=== PATIENT | female | born 1945 | race Caucasian/White ===

== ENCOUNTER → 2016-10-08 | Outpatient (CLI) | payer MEDICARE, BC ==
[2016-10-08 12:08] LABS: ALT 46 U/L (9-52); AST 32 U/L (14-36); Alkaline Phosphatase 97 U/L (38-126); Anion Gap 9 mmol/L; Blood Urea Nitrogen 24 mg/dL (7-17); Calcium 10.1 mg/dL (8.4-10.2); Carbon Dioxide 29 mmol/L (22-30); Chloride 103 mmol/L (98-107); Cholesterol 212 mg/dL (<200); Glucose 131 mg/dL (74-99); HDL Cholesterol 60 mg/dL (40-60); Non-African American GFR(MDRD) >60 (>60 ml/min/1.73 sqM); Potassium 4.9 mmol/L (3.5-5.1); Sodium 141 mmol/L (137-145); Total Bilirubin 0.5 mg/dL (0.2-1.3); Total Protein 6.7 g/dL (6.3-8.2); Triglycerides 148 mg/dL (<150)
== END | disposition home or self-care (01) ==
LOC: LABWHC1 10:55
PROVIDERS: ATTEND Internal Medicine Endocrinology, Diabetes & Metabolism
DX: E11.65 Type 2 diabetes mellitus with hyperglycemia (principal); E03.8 Other specified hypothyroidism
CPT/HCPCS: 36415; 80053; 80061; 82043; 84443

== ENCOUNTER → 2017-01-06 | Outpatient (CLI) | payer MEDICARE, BC | END | disposition home or self-care (01) | LOC: LABWHC1 09:01 | PROVIDERS: ATTEND Internal Medicine Endocrinology, Diabetes & Metabolism | DX: E78.5 Hyperlipidemia, unspecified (principal); E03.8 Other specified hypothyroidism | CPT/HCPCS: 36415; 80061; 84443 ==

== ENCOUNTER → 2017-01-25 | Outpatient (CLI) | payer MEDICARE, BC ==
[2017-01-25 11:21] LABS: Blood Urea Nitrogen 19 mg/dL (7-17); Non-African American GFR(MDRD) >60 (>60 ml/min/1.73 sqM)
--- NOTE | 2017-01-25 12:18 | CT ---
EXAMINATION TYPE: CT abdomen pelvis w con DATE OF EXAM: 01/25/2017 and 03/30/2013. HISTORY: Ovarian cancer, ALL. Surgical history of hysterectomy and peritoneal takedown. Current chemo therapy treatment. CT DLP: 1924.0mGycm Automated Exposure Control for Dose Reduction was Utilized. CONTRAST: CT scan of the abdomen and pelvis is performed with IV Contrast, patient injected with 100 ml mL of O mnipaque 300. COMPARISON: 03/02/2016 FINDINGS: LUNG BASES: No significant abnormality is appreciated. LIVER/GB: No significant abnormality is appreciated. There is no evidence of subserosal implants or l iver parenchymal involvement. A solitary hypoattenuated hepatic lesion within segment 2 of the liver measures 2.3 x 2.4 cm and has central attenuation of fluid. This is stable dating back to 03/30/2013 most compatible with a benign cyst despite irregular wall. The previously questioned gallbladder poly p is not visualized on today's examination. Phrygian cap is incidentally noted. PANCREAS: No significant abnormality is seen. SPLEEN: No significant abnormality is seen. ADRENALS: No significant abnormality is seen. KIDNEYS: No significant abnormality is seen. Incidental note is made of a retroaortic left renal vein . BOWEL: A copious amount of retained fecal material is seen throughout the colon with no evidence of b owel wall thickening or pericolonic fat stranding changes. No bowel dilation. UTERUS/ADNEXA: Postsurgical changes are seen of a hysterectomy and bilateral oophorectomy. LYMPH NODES: No greater than 1cm abdominal or pelvic lymph nodes are appreciated. OSSEOUS STRUCTURES: No significant abnormality is seen. OTHER: There is diastases recti and a small fat filled umbilical hernia. IMPRESSION: 1. No evidence of recurrence, adenopathy or metastatic disease. 2. Hepatic lesion although irregularly marginated is stable dating back to 03/30/2013 and fluid atten uated most compatible with a benign cyst. No evidence of liver parenchymal involvement or subserosal implants.
== END | disposition home or self-care (01) ==
LOC: RADCTMAIN 10:19
PROVIDERS: ATTEND Internal Medicine Hematology & Oncology
DX: C56.9 Malignant neoplasm of unspecified ovary (principal); K76.89 Other specified diseases of liver
CPT/HCPCS: 82565; 84520; 74177; Q9967

== ENCOUNTER → 2017-03-22 | Outpatient (CLI) | payer MEDICARE, BC ==
[2017-03-22 10:18] LABS: ALT 45 U/L (9-52); AST 27 U/L (14-36); Alkaline Phosphatase 107 U/L (38-126); Anion Gap 7 mmol/L; Blood Urea Nitrogen 17 mg/dL (7-17); Calcium 9.9 mg/dL (8.4-10.2); Carbon Dioxide 29 mmol/L (22-30); Chloride 101 mmol/L (98-107); Cholesterol 189 mg/dL (<200); Glucose 137 mg/dL (74-99); HDL Cholesterol 50 mg/dL (40-60); Non-African American GFR(MDRD) >60 (>60 ml/min/1.73 sqM); Potassium 4.9 mmol/L (3.5-5.1); Sodium 137 mmol/L (137-145); Total Bilirubin 0.3 mg/dL (0.2-1.3); Total Protein 6.4 g/dL (6.3-8.2)
[2017-03-22 11:48] LABS: Hemoglobin A1C 6.2 % (4.2-6.1)
[2017-03-22 16:32] LABS: Urine Creatinine 74.2 mg/dL
== END | disposition home or self-care (01) ==
LOC: LABWHC1 09:14
PROVIDERS: ATTEND Internal Medicine Endocrinology, Diabetes & Metabolism
DX: E11.65 Type 2 diabetes mellitus with hyperglycemia (principal)
CPT/HCPCS: 36415; 80053; 80061; 82043; 82570; 83036

== ENCOUNTER → 2017-10-04 | Outpatient (CLI) | payer MEDICARE, BC ==
[2017-10-04 09:08] LABS: Cholesterol 185 mg/dL (<200); HDL Cholesterol 47 mg/dL (40-60); LDL Cholesterol,Calculated 109 mg/dL (0-99); Triglycerides 146 mg/dL (<150)
[2017-10-04 18:41] LABS: Hemoglobin A1C 6.1 % (4.0-6.0)
== END | disposition home or self-care (01) ==
LOC: LABWHC1 07:52
PROVIDERS: ATTEND Internal Medicine Endocrinology, Diabetes & Metabolism
DX: E11.65 Type 2 diabetes mellitus with hyperglycemia (principal)
CPT/HCPCS: 36415; 80061; 83036

== ENCOUNTER → 2017-11-08 | Outpatient (CLI) | payer MEDICARE, BC ==
--- NOTE | 2017-11-10 10:34 | MM ---
Reason for exam: screening (asymptomatic). Last mammogram was performed 1 year and 6 months ago. History: Patient is postmenopausal, has history of ovarian cancer at age 65, and has history of other cancer at age 65. Family history of breast cancer in maternal grandmother, breast cancer in sister at age 59, and premenopausal breast cancer in aunt at age 44. Excisional biopsy of the right breast, 1970. Took estrogen for 10 years 2 months beginning at age 51. Physical Findings: A clinical breast exam by your physician is recommended on an annual basis and results should be correlated with mammographic findings. MG 3D Screening Mammo W/Cad Bilateral CC and MLO view(s) were taken. Prior study comparison: May 12, 2016, bilateral MG 3d screening mammo w/cad. March 28, 2015, bilateral MG screening mammo w CAD. There are scattered fibroglandular densities. No significant changes when compared with prior studies. ASSESSMENT: Benign, BI-RAD 2 RECOMMENDATION: Routine screening mammogram of both breasts in 1 year.
== END | disposition home or self-care (01) ==
LOC: RADMAMWWP 11:19
PROVIDERS: ATTEND Family Medicine
DX: Z12.31 Encounter for screening mammogram for malignant neoplasm of breast (principal)
CPT/HCPCS: 77063; 77067

== ENCOUNTER 2018-01-02 10:43 | Emergency (ER) | payer MEDICARE, BC ==
[2018-01-02 11:01] VITALS: RESP 18; TEMP 98.6
[2018-01-02] MEDS ORDERED: PANTOPRAZOLE 40 MG/10 ML VIAL IVP STA (11:15)
[2018-01-02] MEDS ORDERED: ONDANSETRON 4 MG/2 ML VIAL IVP STA (11:15)
[2018-01-02] MEDS ORDERED: SODIUM CHLORIDE 0.9% 1,000 ML IV STA (11:15)
--- NOTE | 2018-01-02 11:17 | ED ---
General Adult HPI - General Chief complaint: Nausea/Vomiting/Diarrhea Stated complaint: Diarrhea Time Seen by Provider: 01/02/18 11:02 Source: patient, RN notes reviewed Mode of arrival: wheelchair Limitations: no limitations - History of Present Illness Initial comments: Patient 72-year-old female presented to the emergency room today with a chief complaint of diarrhea and abdominal pain off-and-on over the last 4 days. Patient does admit that 2 days ago she noticed some blood in the stool. Patient states that has had some cramping type sharp pains at times in the upper abdomen. States 5/10 at this time. Denies any radiation. States that have colonoscopy back in 2012. Patient states she did have diarrhea this morning but does not see any blood. Patient denies any other complaints or symptoms currently. Patient denies any recent fever, chills, shortness of breath , chest pain, back pain, numbness or tingling, dysuria or hematuria, constipation, headaches or visual changes, or any other complaints. - Related Data Home Medications Medication Instructions Recorded Confirmed ALPRAZolam [Xanax] 0.5 mg PO TID PRN 10/19/13 09/29/14 Amitriptyline HCl [Elavil] 100 mg PO HS 10/19/13 09/29/14 Celecoxib [CeleBREX] 200 mg PO DAILY 10/19/13 09/29/14 Fluconazole 200 mg PO DAILY 10/19/13 09/29/14 Levothyroxine Sodium [Synthroid] 137 mcg PO DAILY 10/19/13 09/29/14 Nitroglycerin Sl Tabs [Nitrostat] 0.4 mg SUBLINGUAL Q5M PRN 10/19/13 09/29/14 Omeprazole [PriLOSEC] 20 mg PO AC-BID 10/19/13 09/29/14 amLODIPine [Norvasc] 5 mg PO DAILY 10/19/13 09/29/14 Ondansetron [Zofran] 8 mg PO Q4HR PRN 02/02/14 09/29/14 Azithromycin [Zithromax] 250 mg PO DAILY 09/28/14 09/29/14 Enoxaparin [Lovenox] 40 mg SQ DAILY 09/28/14 09/29/14 Lisinopril-Hctz 20-25 mg 1 each PO DAILY 09/28/14 09/29/14 [Zestoretic 20-25] Sulfamethox-Tmp 800-160Mg [Bactrim 2 tab PO BID 09/28/14 09/29/14 DS 800-160 mg] hydrALAZINE HCL [Apresoline] 25 mg PO TID 09/28/14 09/29/14 sitaGLIPtin PHOS/metFORMIN HCL 1 each PO BID 09/28/14 09/29/14 [Janumet 50-1,000 mg Tablet] traMADol HCl [Ultram] 50 mg PO TID 09/28/14 09/29/14 valACYclovir HCL [Valtrex] 1,000 mg PO Q12HR 09/29/14 09/29/14 Allergies Allergy/AdvReac Type Severity Reaction Status Date / Time adhesive Allergy Unknown Verified 01/02/18 11:01 meclizine HCl [From Antivert] Allergy Unknown Verified 01/02/18 11:01 cefdinir [Cefdinir] AdvReac Nausea Verified 01/02/18 11:01 Review of Systems ROS Statement: Those systems with pertinent positive or pertinent negative responses have been documented in the HPI. ROS Other: All systems not noted in ROS Statement are negative. Past Medical History Past Medical History: Diabetes Mellitus Additional Past Medical History / Comment(s): Ovarian Cancer, Skin cancer, varicose veins, SOB, hemorrhiods, ovarian disorder, UTI, arthritis, chronic back pain, all luekem. Chronic anemia with frequent blood transfusions. Thrombocytopenia with plt transfusions. History of Any Multi-Drug Resistant Organisms: MRSA, VRE Date of last positivie culture/infection: 12/01/2013-MRSA; 10/20/2013-VRE MDRO Source:: MRSA-Abd Wound: VRE-Urine Past Surgical History: Appendectomy, Hysterectomy Additional Past Surgical History / Comment(s): colonoscopy, abdominal surgery, oophrectomy, shoulder surgery, knee replacement, foot surgery Past Anesthesia/Blood Transfusion Reactions: No Reported Reaction Past Psychological History: Depression Smoking Status: Never smoker Past Alcohol Use History: Occasional Past Drug Use History: None Reported - Past Family History Father Family Medical History: No Reported History General Exam Limitations: no limitations Course Vital Signs 01/02/18 01/02/18 01/02/18 10:56 11:16 13:09 Temperature 98.6 F Pulse Rate 109 H 106 H 101 H Respiratory 18 18 18 Rate Blood Pressure 163/88 157/92 O2 Sat by Pulse 94 L 98 96 Oximetry Medical Decision Making - Medical Decision Making Patient reexamined at this time shows no signs of distress. She is resting comfortably. Patient's occult a sample was negative for any bloody urine emergency room. She does admit that she saw some blood in the stool 2 days ago. No blood this morning when she had some loose stool. Patient's labs been reviewed hemoglobin stable. Remaining labs unremarkable. Patient's CT of the abdomen and pelvis reviewed and does show hepatomegaly with fatty liver, stable hepatic lesion. No acute inflammatory changes. Results were discussed with the patient. At this time she is doing well. Vitals are stable be discharged home to follow-up with her family physician over the next 2 days. Advised return if any symptoms increase worsen. - Lab Data Result diagrams: 01/02/18 11:25 01/02/18 11:25 Lab Results 01/02/18 01/02/18 01/02/18 Range/Units 11:25 11:25 11:25 WBC 4.4 (3.8-10.6) k/uL RBC 3.65 L (3.80-5.40) m/uL Hgb 11.9 (11.4-16.0) gm/dL Hct 34.7 (34.0-46.0) % MCV 95.0 (80.0-100.0) fL MCH 32.5 (25.0-35.0) pg MCHC 34.2 (31.0-37.0) g/dL RDW 15.2 (11.5-15.5) % Plt Count 105 L (150-450) k/uL Neutrophils % 69 % Lymphocytes % 23 % Monocytes % 4 % Eosinophils % 1 % Basophils % 0 % Neutrophils # 3.0 (1.3-7.7) k/uL Lymphocytes # 1.0 (1.0-4.8) k/uL Monocytes # 0.2 (0-1.0) k/uL Eosinophils # 0.1 (0-0.7) k/uL Basophils # 0.0 (0-0.2) k/uL PT 9.6 (9.0-12.0) sec INR 1.0 (<1.2) APTT 22.3 (22.0-30.0) sec Sodium 137 (137-145) mmol/L Potassium 4.9 (3.5-5.1) mmol/L Chloride 103 (98-107) mmol/L Carbon Dioxide 25 (22-30) mmol/L Anion Gap 9 mmol/L BUN 32 H (7-17) mg/dL Creatinine 0.80 (0.52-1.04) mg/dL Est GFR (CKD-EPI)AfAm 85 (>60 ml/min/1.73 sqM) Est GFR (CKD-EPI)NonAf 74 (>60 ml/min/1.73 sqM) Glucose 113 H (74-99) mg/dL Calcium 9.8 (8.4-10.2) mg/dL Total Bilirubin 0.3 (0.2-1.3) mg/dL AST 26 (14-36) U/L ALT 37 (9-52) U/L Alkaline Phosphatase 67 (38-126) U/L Total Protein 6.8 (6.3-8.2) g/dL Albumin 4.3 (3.5-5.0) g/dL Urine Color Urine Appearance (Clear) Urine pH (5.0-8.0) Ur Specific [place] (1.001-1.035) Urine Protein (Negative) Urine Glucose (UA) (Negative) Urine Ketones (Negative) Urine Blood (Negative) Urine Nitrite (Negative) Urine Bilirubin (Negative) Urine Urobilinogen (<2.0) mg/dL Ur Leukocyte Esterase (Negative) Urine RBC (0-5) /hpf Urine WBC (0-5) /hpf Ur Squamous Epith Cells (0-4) /hpf Amorphous Sediment (None) /hpf Urine Mucus (None) /hpf Stool Occult Blood (Negative) 01/02/18 01/02/18 Range/Units 11:25 13:12 WBC (3.8-10.6) k/uL RBC (3.80-5.40) m/uL Hgb (11.4-16.0) gm/dL Hct (34.0-46.0) % MCV (80.0-100.0) fL MCH (25.0-35.0) pg MCHC (31.0-37.0) g/dL RDW (11.5-15.5) % Plt Count (150-450) k/uL Neutrophils % % Lymphocytes % % Monocytes % % Eosinophils % % Basophils % % Neutrophils # (1.3-7.7) k/uL Lymphocytes # (1.0-4.8) k/uL Monocytes # (0-1.0) k/uL Eosinophils # (0-0.7) k/uL Basophils # (0-0.2) k/uL PT (9.0-12.0) sec INR (<1.2) APTT (22.0-30.0) sec Sodium (137-145) mmol/L Potassium (3.5-5.1) mmol/L Chloride (98-107) mmol/L Carbon Dioxide (22-30) mmol/L Anion Gap mmol/L BUN (7-17) mg/dL Creatinine (0.52-1.04) mg/dL Est GFR (CKD-EPI)AfAm (>60 ml/min/1.73 sqM) Est GFR (CKD-EPI)NonAf (>60 ml/min/1.73 sqM) Glucose (74-99) mg/dL Calcium (8.4-10.2) mg/dL Total Bilirubin (0.2-1.3) mg/dL AST (14-36) U/L ALT (9-52) U/L Alkaline Phosphatase (38-126) U/L Total Protein (6.3-8.2) g/dL Albumin (3.5-5.0) g/dL Urine Color Light Yellow Urine Appearance Clear (Clear) Urine pH 5.0 (5.0-8.0) Ur Specific [place] 1.022 (1.001-1.035) Urine Protein Negative (Negative) Urine Glucose (UA) Negative (Negative) Urine Ketones Negative (Negative) Urine Blood Trace H (Negative) Urine Nitrite Negative (Negative) Urine Bilirubin Negative (Negative) Urine Urobilinogen <2.0 (<2.0) mg/dL Ur Leukocyte Esterase Negative (Negative) Urine RBC 1 (0-5) /hpf Urine WBC <1 (0-5) /hpf Ur Squamous Epith Cells 1 (0-4) /hpf Amorphous Sediment Rare H (None) /hpf Urine Mucus Rare H (None) /hpf Stool Occult Blood Negative (Negative) Disposition Clinical Impression: Acute diarrhea Disposition: HOME SELF-CARE Condition: Good Instructions: Acute Diarrhea (ED) Additional Instructions: Please call family physician over the next 2 days. Please return here to the emergency room if any symptoms increase or worsen or for any other concerns. Is patient prescribed a controlled substance at d/c from ED?: No Referrals: Jersey Murrieta MD [Primary Care Provider] - 1-2 days Time of Disposition: 13:49
[2018-01-02 11:35] LABS: Basophils % (A) 0 %; Eosinophils # (A) 0.1 k/uL (0-0.7); Eosinophils % (A) 1 %; HCT 34.7 % (34.0-46.0); HGB 11.9 gm/dL (11.4-16.0); Lymphocytes % (A) 23 %; MCH 32.5 pg (25.0-35.0); MCHC 34.2 g/dL (31.0-37.0); Mean Platelet Volume 8.6; Monocytes # (A) 0.2 k/uL (0-1.0); Monocytes % (A) 4 %; Neutrophils % (A) 69 %; Platelet Count 105 k/uL (150-450); RBC 3.65 m/uL (3.80-5.40); RDW 15.2 % (11.5-15.5); WBC 4.4 k/uL (3.8-10.6)
[2018-01-02 11:48] LABS: Albumin 4.3 g/dL (3.5-5.0); Calcium 9.8 mg/dL (8.4-10.2); Potassium 4.9 mmol/L (3.5-5.1); Total Bilirubin 0.3 mg/dL (0.2-1.3); Total Protein 6.8 g/dL (6.3-8.2)
[2018-01-02 11:57] LABS: Partial Thromboplastin Time 22.3 sec (22.0-30.0); Prothrombin Time 9.6 sec (9.0-12.0)
--- NOTE | 2018-01-02 13:18 | CT ---
EXAMINATION TYPE: CT abdomen pelvis w con DATE OF EXAM: 01/02/2018 REFERENCE: NONE HISTORY: Pain HISTORY: Diarrhea REFERENCE: Previous study dated 01/25/2017. CT DLP: 2072.00 mGy Automated exposure control for dose reduction was used. TECHNIQUE: Helical acquisition through the abdomen and pelvis was obtained following the oral ingesti on of without Oral Contrast and following intravenous administration of 100 ml mL of Isovue 300. The data was reformatted in axial, coronal and sagittal projections. FINDINGS: Visualized portions of the lungs are clear. There is no pleural or pericardial fluid. The heart is not enlarged. There is a stable hepatic lesion in the left lobe of the liver unchanged from previous. The liver is mildly prominent measuring 19 cm. There is mild fatty infiltration of the liver. The spleen is unrema rkable. The gallbladder is distended. Both adrenal glands are normal. Both kidneys demonstrate function and appear morphologically normal. The right kidney is mildly malro tated. The pancreas is unremarkable. There is no significant retroperitoneal, iliac or inguinal adenopathy. There has been a previous ingu inal lymph node dissection bilaterally. The bladder is unremarkable. There is no significant diverticular change and there is no radiographic evidence of diverticulitis. The appendix is not clearly seen. Small bowel loops are of normal caliber. There is no free fluid and no free air. There is degenerative disc disease, facet arthropathy and hypertrophic spondylosis within the spine. No bony destructive lesion is seen. IMPRESSION: 1. MILD HEPATOMEGALY AND FATTY INFILTRATION OF THE LIVER. 2. DEGENERATIVE CHANGES WITHIN THE SPINE. 3. POSTSURGICAL CHANGE. 4. STABLE HEPATIC LESION IN THE LEFT LOBE OF THE LIVER.
[2018-01-02 13:22] LABS: Amorphous Sediment,Urine Rare /hpf; Appearance,Urine Clear (Clear); Bilirubin,Urine Negative (Negative); Blood,Urine Trace (Negative); Color,Urine Light Yellow; Glucose,Urine (UA) Negative (Negative); Ketones,Urine Negative (Negative); Leukocyte Esterase,Urine Negative (Negative); Mucus,Urine Rare /hpf; Nitrite,Urine Negative (Negative); Protein,Urine Negative (Negative); RBC,Urine 1 /hpf (0-5); Specific Gravity,Urine 1.022 (1.001-1.035); Squamous Epithelial Cell,Urine 1 /hpf (0-4); Urobilinogen,Urine <2.0 mg/dL (<2.0); WBC,Urine <1 /hpf (0-5)
[2018-01-02 14:01] VITALS: BP 140/75; PULSE 98
== END 2018-01-02 14:01 | disposition home or self-care (01) ==
LOC: EC 10:43
DX: R19.7 Diarrhea, unspecified (principal); K76.0 Fatty (change of) liver, not elsewhere classified; K76.89 Other specified diseases of liver; R16.0 Hepatomegaly, not elsewhere classified; R10.10 Upper abdominal pain, unspecified; E11.9 Type 2 diabetes mellitus without complications; M19.90 Unspecified osteoarthritis, unspecified site; D64.9 Anemia, unspecified; D69.6 Thrombocytopenia, unspecified; F32.9 Major depressive disorder, single episode, unspecified; Z79.01 Long term (current) use of anticoagulants; Z79.1 Long term (current) use of non-steroidal anti-inflammatories (NSAID); Z79.84 Long term (current) use of oral hypoglycemic drugs; Z79.891 Long term (current) use of opiate analgesic; Z79.899 Other long term (current) drug therapy; Z88.1 Allergy status to other antibiotic agents; Z88.8 Allergy status to other drugs, medicaments and biological substances; Z91.048 Other nonmedicinal substance allergy status; Z86.14 Personal history of Methicillin resistant Staphylococcus aureus infection; Z85.43 Personal history of malignant neoplasm of ovary; Z90.722 Acquired absence of ovaries, bilateral; Z87.440 Personal history of urinary (tract) infections; Z86.79 Personal history of other diseases of the circulatory system; Z90.49 Acquired absence of other specified parts of digestive tract
CPT/HCPCS: 99284; 96374; 96375; 96361 ×2; 36415; 80053; 85025; 85610; 85730; 82272; 81001; 74177; J2405; C9113; Q9967

== ENCOUNTER → 2018-01-17 | Outpatient (CLI) | payer MEDICARE, BC ==
[2018-01-17 11:18] LABS: Albumin 4.2 g/dL (3.5-5.0); Calcium 10.1 mg/dL (8.4-10.2); Potassium 4.9 mmol/L (3.5-5.1); Total Bilirubin 0.3 mg/dL (0.2-1.3); Total Protein 6.6 g/dL (6.3-8.2)
[2018-01-17 19:42] LABS: Hemoglobin A1C 6.4 % (4.0-6.0)
== END | disposition home or self-care (01) ==
LOC: LABWHC1 10:37
PROVIDERS: ATTEND Internal Medicine Endocrinology, Diabetes & Metabolism
DX: E11.65 Type 2 diabetes mellitus with hyperglycemia (principal)
CPT/HCPCS: 36415; 80053; 80061; 83036; 84443

== ENCOUNTER → 2018-01-22 | Outpatient (CLI) | payer MEDICARE, BC ==
--- NOTE | 2018-01-23 14:44 | MR ---
EXAMINATION TYPE: MR lumbar spine wo/w con DATE OF EXAM: 01/22/2018 COMPARISON: None HISTORY: LBP, lisette leg weakness, hx ovarian ca 2010, leukemia 2013 CONTRAST: 12 mL intravenous Gadavist. TECHNIQUE: Multiplanar, multisequence images of the lumbar spine were acquired on a 3.0 Greta magnet. FINDINGS: Cord terminates at the L1 level. L5-S1: No significant disc bulge or disc herniation. No spinal canal stenosis. No foraminal stenosi s. Facet hypertrophy is present. No significant posterior lateral thecal sac compression is evident. . L4-L5: Broad-based disc bulge has mild anterior thecal sac flattening. Facet hypertrophy is present. Some posterior lateral thecal sac compression on the left is present. Spinal canal stenosis is not pr esent. There is severe left foraminal stenosis due to facet hypertrophy. L3-L4: No significant disc bulge or disc herniation. No spinal canal stenosis. No foraminal stenosi s. Facet hypertrophy is present. Mild ligamentum flavum laxity is present with posterior lateral the patsy sac compression. Some lateral canal narrowing may be present. Scoliosis is through the lower lumb ar spine centered at the L4 level. L2-L3: Minimal retrolisthesis of L2 on L3 may be present. Disc uncovering is present with moderate an terior thecal sac impression. Facet hypertrophy is present with posterior lateral thecal sac impressi on. Canal narrowing without stenosis is present. Lateral canal stenosis could be considered. Foramen are patent. L1-L2: No significant disc bulge or disc herniation. No spinal canal stenosis. No foraminal stenosi s. Neural foramen are patent.. T12-L1: No significant disc bulge or disc herniation. No spinal canal stenosis. No foraminal stenos is. Neural foramen are patent.. No abnormal enhancement. Vertebral bodies have a heterogenous appearance. This could be related to ma rrow conversion. This is diffuse throughout the visualized osseous structures. An infiltrative marrow process is not excluded. IMPRESSION: 1. Severe left foraminal stenosis L4-5 secondary to facet hypertrophy. Correlate with radicular sympt oms. 2. Lateral canal stenosis L3-4, L2-3 due to facet hypertrophy and ligamentum flavum laxity. 3. Mild foraminal narrowing noted above. 4. Grade 1 retrolisthesis of L2 on L3.
--- NOTE | 2018-01-24 04:26 | MR ---
EXAMINATION TYPE: MR pelvis wo/w con DATE OF EXAM: 01/22/2018 COMPARISON: None HISTORY: LBP, lisette leg weakness, hx ovarian ca 2010, leukemia 2013 CONTRAST: Standard multiplanar, multisequence MRI departmental protocol utilizing 12 mL intravenous Gadavist ga dolinium contrast. FINDINGS: There is mild presacral edema. There is some stranding around the rectum. Rectal wall appea rs slightly thickened. I see no pelvic lymphadenopathy. Bladder distends smoothly. There is 3 cm flui d collection adjacent to the greater trochanter of the right femur. There is minimal fluid at the gre ater trochanter left femur. There is no free fluid within the pelvis. Hysterectomy is noted. I see no bony destructive process. Hip joints appear intact. IMPRESSION: There is perirectal edema. There is rectal wall and lower sigmoid wall thickening consistent with col itis. No evidence of a solid pelvic mass. No adenopathy. Fluid at the greater trochanter of the left and right femur consistent with trochanteric bursitis.
== END | disposition home or self-care (01) ==
LOC: RADMRIMAIN 10:35
PROVIDERS: ATTEND Internal Medicine Hematology & Oncology
DX: M99.73 Connective tissue and disc stenosis of intervertebral foramina of lumbar region (principal); M48.061 Spinal stenosis, lumbar region without neurogenic claudication; M43.16 Spondylolisthesis, lumbar region; M47.816 Spondylosis without myelopathy or radiculopathy, lumbar region; M24.28 Disorder of ligament, vertebrae
CPT/HCPCS: 72158; 72197; A9581

== ENCOUNTER → 2018-01-31 | Outpatient (CLI) | payer MEDICARE, BC ==
--- NOTE | 2018-01-31 13:50 | CT ---
EXAMINATION TYPE: CT ChestAbdPelvis w con DATE OF EXAM: 01/31/2018 COMPARISON: 01/02/2018, 03/02/2016 HISTORY: Follow up Ovarian cancer per patient CT DLP: 2662.8 mGycm Automated exposure control for dose reduction was used. CONTRAST: CT scan of the chest, abdomen and pelvis is performed with Oral Contrast and with IV Contrast, patien t injected with 100 mL of Isovue 300. FINDINGS: LUNGS: 3 mm subpleural nodule image 19 posteriorly right upper lobe. No consolidation or pleural effu naila. No pneumothorax.. MEDIASTINUM: There are no greater than 1 cm hilar or mediastinal lymph nodes. No pericardial effusi on is seen. OTHER: No additional significant abnormality is seen. LIVER/GB: There is a stable hepatic lesion in the left lobe of the liver measuring 2.4 x 2.1 cm uncha nged from previous. The liver is mildly prominent measuring 21 cm. There is mild fatty infiltration o f the liver. PANCREAS: No significant abnormality is seen. SPLEEN: No significant abnormality is seen. ADRENALS: No significant abnormality is seen. KIDNEYS: No hydronephrosis or nephrolithiasis. Mild malrotation of the right kidney is stable.. BOWEL: No significant abnormality is seen. LYMPH NODES: There is a soft tissue density in left perirectal region measuring approximately 1.5 cm in short axis. OSSEOUS STRUCTURES: Multilevel degenerative disc disease. Scoliosis noted. Anterolisthesis of L2 on 3 reported by previous MRI not well seen on today's exam. Multilevel severe degenerative disc disease with vacuum disc. Multilevel facet arthropathy.. OTHER: Aorta of normal caliber. Retroaortic left renal vein incidentally noted. IMPRESSION: 1. There is a soft tissue density along the left perirectal region axial image 117 series 3 which is slightly increased in size from the previous exam of 2018 but is not clearly seen on the exam of 2016 . Could not exclude an area of pathologic adenopathy. 2. Stable 2.4 x 2.1 cm hepatic lesion which does not meet the criteria of a simple cyst. 3. Hepatic steatosis with evidence of hepatomegaly measuring 21 cm. 4. Stable 3 mm subpleural nodule posterior segment right upper lobe unchanged from exam of 2016.
== END | disposition home or self-care (01) ==
LOC: RADCTMAIN 10:52
PROVIDERS: ATTEND Internal Medicine Hematology & Oncology
DX: K76.0 Fatty (change of) liver, not elsewhere classified (principal); R16.0 Hepatomegaly, not elsewhere classified; K76.89 Other specified diseases of liver; K62.89 Other specified diseases of anus and rectum; R91.1 Solitary pulmonary nodule; Z85.43 Personal history of malignant neoplasm of ovary; Z88.1 Allergy status to other antibiotic agents; Z88.8 Allergy status to other drugs, medicaments and biological substances
CPT/HCPCS: 82565; 84520; 71260; 74177; 36415; Q9967

== ENCOUNTER 2018-05-09 16:14 | Inpatient (IN) | payer MEDICARE, BC ==
[2018-05-09] MEDS ORDERED: SODIUM CHLORIDE 0.9% 1,000 ML IV STA ×2 (17:14→20:07)
--- NOTE | 2018-05-09 17:30 | ED ---
General Adult HPI - General Chief complaint: Weakness Stated complaint: from [facility], [facility] labs Source: patient Mode of arrival: wheelchair Limitations: no limitations - History of Present Illness Initial comments: Dictation was produced using [employer] dictation software. please excuse any grammatical, word or spelling errors. Chief Complaint: 72-year-old female past medical history of lymphoma, ovarian cancer presents with abnormal outpatient labs and presyncope. History of Present Illness: Patient 17-year-old female with extensive cancer history. Patient is currently undergoing chemotherapy for lymphoma. Patient's last chemotherapy 7 days ago. She had labs performed outpatient by her oncologist showing low platelets. She is told to come to the emergency department. Today patient had 2 episodes of feeling lightheaded causing her to stumble. She denies any syncope. Denies any head trauma. Patient denies any headache. Calls were witnessed by her who accompanies her at bedside. Patient has any infectious symptoms. Denies any constitutional symptoms. The ROS documented in this emergency department record has been reviewed and confirmed by me. Those systems with pertinent positive or negative responses have been documented in the HPI. All other systems are other negative and/or noncontributory. - Related Data Home Medications Medication Instructions Recorded Confirmed Amitriptyline HCl [Elavil] 100 mg PO HS 10/19/13 05/09/18 Celecoxib [CeleBREX] 200 mg PO BID 10/19/13 05/09/18 Levothyroxine Sodium [Synthroid] 137 mcg PO DAILY 10/19/13 05/09/18 Omeprazole [PriLOSEC] 20 mg PO AC-BID 10/19/13 05/09/18 Allopurinol [Zyloprim] 300 mg PO DAILY 05/09/18 05/09/18 Insulin Regular, Human [NovoLIN R] See Protocol SQ AC-TID PRN 05/09/18 05/09/18 Lisinopril [Zestril] 10 mg PO DAILY 05/09/18 05/09/18 Prochlorperazine [Compazine] 10 mg PO TID PRN 05/09/18 05/09/18 glipiZIDE [Glucotrol] 10 mg PO AC-BID 05/09/18 05/09/18 metFORMIN HCL 1,000 mg PO BID 11/19/18 11/19/18 Allergies Allergy/AdvReac Type Severity Reaction Status Date / Time adhesive Allergy Unknown Verified 05/09/18 17:52 meclizine HCl [From Antivert] Allergy Unknown Verified 05/09/18 17:52 cefdinir [Cefdinir] AdvReac Nausea Verified 05/09/18 17:52 Review of Systems ROS Statement: Those systems with pertinent positive or pertinent negative responses have been documented in the HPI. ROS Other: All systems not noted in ROS Statement are negative. Past Medical History Past Medical History: Cancer, Diabetes Mellitus Additional Past Medical History / Comment(s): Ovarian Cancer, Skin cancer, varicose veins, SOB, hemorrhiods, ovarian disorder, UTI, arthritis, chronic back pain, all luekem. Chronic anemia with frequent blood transfusions. Thrombocytopenia with plt transfusions. lymphoma History of Any Multi-Drug Resistant Organisms: MRSA, VRE Date of last positivie culture/infection: 12/01/2013-MRSA; 10/20/2013-VRE MDRO Source:: MRSA-Abd Wound: VRE-Urine Past Surgical History: Appendectomy, Hysterectomy Additional Past Surgical History / Comment(s): colonoscopy, abdominal surgery, oophrectomy, shoulder surgery, knee replacement, foot surgery Past Anesthesia/Blood Transfusion Reactions: No Reported Reaction Past Psychological History: Depression Smoking Status: Never smoker Past Alcohol Use History: Occasional Past Drug Use History: None Reported - Past Family History Father Family Medical History: No Reported History General Exam - General Exam Comments Initial Comments: PHYSICAL EXAM: General Impression: Alert and oriented x3, not in acute distress HEENT: Normocephalic atraumatic, extra-ocular movements intact, pupils equal and reactive to light bilaterally, mucous membranes moist. Cardiovascular: Tachycardic Chest: Lungs clear to auscultation bilaterally, no rhonchi, no wheeze, no rales Abdomen: Bowel sounds present, abdomen soft, non-tender, non-distended, no organomegaly Musculoskeletal: Pulses present and equal in all extremities, no peripheral edema Motor: Power 5/5 bilaterally, no focal deficits noted Neurological: CN II-XII grossly intact, no focal motor or sensory deficits noted Skin: Intact with no visualized rashes Psych: Normal affect and mood Limitations: no limitations Course Vital Signs 05/09/18 05/09/18 05/09/18 16:18 17:45 18:08 Temperature 99.0 F Pulse Rate 134 H Pulse Rate [ 132 H Continuous Conveyor Screen Drier ] Respiratory 20 18 Rate Blood Pressure 102/55 154/62 O2 Sat by Pulse 94 L 99 Oximetry 05/09/18 05/09/18 05/09/18 18:36 19:18 20:02 Temperature 100.5 F H 100.3 F H Pulse Rate 129 H 130 H 126 H Pulse Rate [ Continuous Conveyor Screen Drier ] Respiratory 18 18 18 Rate Blood Pressure 154/62 111/68 97/64 O2 Sat by Pulse 94 L 96 95 Oximetry Medical Decision Making - Medical Decision Making ED course: 62-year-old female with extensive cancer history presents with abnormal outpatient platelet count and episodes of presyncope. End upon arrival shows heart rate of 134. Rest of laboratory evaluation is within acceptable limits.Lavatory evaluation obtained. WBC count of 0.2, hemoglobin 9.5, platelet of 32. Coag panel is unremarkable. Metabolic panel shows sodium 131. Lactic acidosis of 2.4, glucose of 225. Magnesium, calcium, ionized calcium and phosphorus and uric acid are all within acceptable limits. Repeat vital signs were obtained with temperatures of 100.500.3. Patient still persistently tachycardic. She denies any chest pain or shortness of breath. No clinical suspicion of pulmonary embolus at this time. Patient given intravenous fluids. Discussed patient case with primary care physician who requests patient be given IV antibiotics given clinical picture. Patient given vancomycin and cefepime. We will have patient admitted to internal medicine for further care. Oncology to be on consult. - Lab Data Result diagrams: 05/09/18 17:30 05/09/18 17:30 Lab Results 05/09/18 05/09/18 05/09/18 Range/Units 17:30 17:30 17:30 WBC 0.2 L* (3.8-10.6) k/uL RBC 2.90 L (3.80-5.40) m/uL Hgb 9.5 L (11.4-16.0) gm/dL Hct 28.5 L (34.0-46.0) % MCV 98.1 (80.0-100.0) fL MCH 32.6 (25.0-35.0) pg MCHC 33.2 (31.0-37.0) g/dL RDW 15.9 H (11.5-15.5) % Plt Count 32 L (150-450) k/uL Neutrophils # RECHECKER Differential Comment Manual Slide Review Performed Anisocytosis (manual) Present Macrocytosis Slight PT (9.0-12.0) sec INR (<1.2) APTT (22.0-30.0) sec Sodium 131 L (137-145) mmol/L Potassium 4.7 (3.5-5.1) mmol/L Chloride 95 L (98-107) mmol/L Carbon Dioxide 26 (22-30) mmol/L Anion Gap 10 mmol/L BUN 25 H (7-17) mg/dL Creatinine 0.82 (0.52-1.04) mg/dL Est GFR (CKD-EPI)AfAm 83 (>60 ml/min/1.73 sqM) Est GFR (CKD-EPI)NonAf 72 (>60 ml/min/1.73 sqM) Glucose 225 H (74-99) mg/dL Plasma Lactic Acid Minh (0.7-2.0) mmol/L Uric Acid 3.7 (3.7-7.4) mg/dL Calcium 9.6 (8.4-10.2) mg/dL Ionized Calcium Lilian 5.0 (4.5-5.3) mg/dL Phosphorus 2.9 (2.5-4.5) mg/dL Magnesium 1.6 (1.6-2.3) mg/dL Total Bilirubin 0.6 (0.2-1.3) mg/dL AST 11 L (14-36) U/L ALT 27 (9-52) U/L Alkaline Phosphatase 77 (38-126) U/L Total Creatine Kinase <20 L (30-135) U/L CK-MB (CK-2) 0.2 (0.0-2.4) ng/mL CK-MB (CK-2) Rel Index Troponin I <0.012 (0.000-0.034) ng/mL Total Protein 6.2 L (6.3-8.2) g/dL Albumin 3.7 (3.5-5.0) g/dL 05/09/18 05/09/18 Range/Units 17:30 17:30 WBC (3.8-10.6) k/uL RBC (3.80-5.40) m/uL Hgb (11.4-16.0) gm/dL Hct (34.0-46.0) % MCV (80.0-100.0) fL MCH (25.0-35.0) pg MCHC (31.0-37.0) g/dL RDW (11.5-15.5) % Plt Count (150-450) k/uL Neutrophils # Differential Comment Manual Slide Review Anisocytosis (manual) Macrocytosis PT 9.9 (9.0-12.0) sec INR 1.0 (<1.2) APTT 21.8 L (22.0-30.0) sec Sodium (137-145) mmol/L Potassium (3.5-5.1) mmol/L Chloride (98-107) mmol/L Carbon Dioxide (22-30) mmol/L Anion Gap mmol/L BUN (7-17) mg/dL Creatinine (0.52-1.04) mg/dL Est GFR (CKD-EPI)AfAm (>60 ml/min/1.73 sqM) Est GFR (CKD-EPI)NonAf (>60 ml/min/1.73 sqM) Glucose (74-99) mg/dL Plasma Lactic Acid Minh 2.4 H* (0.7-2.0) mmol/L Uric Acid (3.7-7.4) mg/dL Calcium (8.4-10.2) mg/dL Ionized Calcium Lilian (4.5-5.3) mg/dL Phosphorus (2.5-4.5) mg/dL Magnesium (1.6-2.3) mg/dL Total Bilirubin (0.2-1.3) mg/dL AST (14-36) U/L ALT (9-52) U/L Alkaline Phosphatase (38-126) U/L Total Creatine Kinase (30-135) U/L CK-MB (CK-2) (0.0-2.4) ng/mL CK-MB (CK-2) Rel Index Troponin I (0.000-0.034) ng/mL Total Protein (6.3-8.2) g/dL Albumin (3.5-5.0) g/dL Disposition Clinical Impression: Febrile neutropenia Disposition: ADMITTED IP TO THIS [facility] Condition: Fair Referrals: Jersey Murrieta MD [Primary Care Provider] - 1-2 days Decision Time: 20:27
[2018-05-09 17:56] LABS: Albumin 3.7 g/dL (3.5-5.0); Calcium 9.6 mg/dL (8.4-10.2); Magnesium 1.6 mg/dL (1.6-2.3); Phosphorus 2.9 mg/dL (2.5-4.5); Potassium 4.7 mmol/L (3.5-5.1); Total Bilirubin 0.6 mg/dL (0.2-1.3); Total Protein 6.2 g/dL (6.3-8.2); Uric Acid 3.7 mg/dL (3.7-7.4)
[2018-05-09 17:58] LABS: Creatine Kinase <20 U/L (30-135)
[2018-05-09 18:00] LABS: Prothrombin Time 9.9 sec (9.0-12.0)
[2018-05-09 18:05] LABS: HCT 28.5 % (34.0-46.0); HGB 9.5 gm/dL (11.4-16.0); MCH 32.6 pg (25.0-35.0); MCHC 33.2 g/dL (31.0-37.0); MCV 98.1 fL (80.0-100.0); Macrocytosis Slight; Mean Platelet Volume 7.5; RDW 15.9 % (11.5-15.5)
[2018-05-09 18:10] LABS: Creatine Kinase MB 0.2 ng/mL (0.0-2.4); Troponin I <0.012 ng/mL (0.000-0.034)
[2018-05-09 18:11] LABS: WBC 0.2 k/uL (3.8-10.6)
[2018-05-09 18:12] LABS: Partial Thromboplastin Time 21.8 sec (22.0-30.0)
[2018-05-09 18:23] LABS: Platelet Count 32 k/uL (150-450)
[2018-05-09 18:24] LABS: Anisocytosis (M) Present
--- NOTE | 2018-05-09 19:30 | XR ---
EXAMINATION TYPE: XR chest 2V DATE OF EXAM: 05/09/2018 COMPARISON: 09/28/2014 HISTORY: Weakness TECHNIQUE: Frontal and lateral views of the chest are obtained. FINDINGS: Heart and mediastinum are normal. Lungs are clear. Diaphragm is normal. There are chest le ads. Bony thorax is intact. IMPRESSION: Normal chest. There is clearing of the bilateral patchy infiltrates and atelectasis comp ared to old exam.
[2018-05-09] MEDS ORDERED: VANCOMYCIN 1,000 MG in SODIUM CHLORIDE 0.9% 250 ML IVPB STA (20:13)
[2018-05-09] MEDS ORDERED: CEFEPIME 2 GM in SODIUM CHLORIDE 0.9% 50 ML IVPB STA (20:15)
[2018-05-09] MEDS ORDERED: VANCOMYCIN IV PER PHARMACY 1 EACH MISC MISCELLANE PRN (20:17)
[2018-05-09] MEDS ORDERED: NALOXONE 0.4 MG/ML 1 ML VIAL IV PRN (20:24)
[2018-05-09] MEDS ORDERED: VANCOMYCIN 2,000 MG in SODIUM CHLORIDE 0.9% 500 ML 500 ML IVPB ONE (21:00)
[2018-05-09 22:12] LABS: Appearance,Urine Clear (Clear); Bilirubin,Urine Negative (Negative); Blood,Urine Negative (Negative); Color,Urine Light Yellow; Glucose,Urine (UA) 3+ (Negative); Ketones,Urine Negative (Negative); Leukocyte Esterase,Urine Negative (Negative); Nitrite,Urine Negative (Negative); Protein,Urine Negative (Negative); Urobilinogen,Urine <2.0 mg/dL (<2.0)
[2018-05-10] MEDS: metFORMIN 500 MG TAB PO SCH ×3 (00:52→21:23)
[2018-05-10] MEDS ORDERED: MAGNESIUM HYDROXIDE 2,400 MG/10 ML CUP PO PRN (07:24)
[2018-05-10] MEDS ORDERED: PROCHLORPERAZINE 10 MG TAB PO PRN (07:27)
--- NOTE | 2018-05-10 07:27 | P.PN ---
Subjective Progress Note Date: 05/10/18 Principal diagnosis: Febrile neutropenia. This a history of physical 72-year-old white female admitted secondary to generalized weakness but found have significant neutropenia with low-grade fever. She is being treated right now for lymphoma and recently had chemotherapy treatment last week. He has not underlying history of ovarian cancer also. Her breast cancer is also stated. She does receive her oncologic treatment here. She is nonsmoker. She denies any significant illicit substance abuse. She states since his last treatment she's been having difficulty with ambulation and her weakness prompted appropriate evaluation. She does also complain of mild constipation. After evaluation it was felt that she should be evaluated. Dr. Garrett will also be consulted. Objective - Vital Signs Vital signs: Vital Signs Temp 99.7 F H 05/09/18 23:14 Pulse 110 H 05/10/18 03:00 Resp 15 05/10/18 03:00 BP 121/64 05/10/18 03:00 Pulse Ox 98 05/10/18 03:00 Intake & Output 05/09/18 05/10/18 05/10/18 18:59 06:59 18:59 Weight 110.677 kg - Constitutional General appearance: Present: average body habitus - EENT Eyes: Absent: abnormal pupil - Respiratory Respiratory: bilateral: CTA - Cardiovascular Rhythm: regular Heart sounds: normal: S1, S2 Abnormal Heart Sounds: Absent: S3 Gallop - Gastrointestinal General gastrointestinal: Present: soft. Absent: tenderness - Musculoskeletal Musculoskeletal: Present: generalized weakness - Labs CBC & Chem 7: 05/09/18 17:30 05/09/18 17:30 Labs: Abnormal Lab Results - Last 24 Hours (Table) 05/09/18 05/09/18 05/09/18 Range/Units 17:30 17:30 17:30 WBC 0.2 L* (3.8-10.6) k/uL RBC 2.90 L (3.80-5.40) m/uL Hgb 9.5 L (11.4-16.0) gm/dL Hct 28.5 L (34.0-46.0) % RDW 15.9 H (11.5-15.5) % Plt Count 32 L (150-450) k/uL APTT (22.0-30.0) sec Sodium 131 L (137-145) mmol/L Chloride 95 L (98-107) mmol/L BUN 25 H (7-17) mg/dL Glucose 225 H (74-99) mg/dL Plasma Lactic Acid Minh (0.7-2.0) mmol/L AST 11 L (14-36) U/L Total Creatine Kinase <20 L (30-135) U/L Total Protein 6.2 L (6.3-8.2) g/dL Urine Glucose (UA) (Negative) 05/09/18 05/09/18 05/09/18 Range/Units 17:30 17:30 21:45 WBC (3.8-10.6) k/uL RBC (3.80-5.40) m/uL Hgb (11.4-16.0) gm/dL Hct (34.0-46.0) % RDW (11.5-15.5) % Plt Count (150-450) k/uL APTT 21.8 L (22.0-30.0) sec Sodium (137-145) mmol/L Chloride (98-107) mmol/L BUN (7-17) mg/dL Glucose (74-99) mg/dL Plasma Lactic Acid Minh 2.4 H* (0.7-2.0) mmol/L AST (14-36) U/L Total Creatine Kinase (30-135) U/L Total Protein (6.3-8.2) g/dL Urine Glucose (UA) 3+ H (Negative) Microbiology - Last 24 Hours (Table) 05/09/18 17:30 Blood Culture - Final Blood Assessment and Plan (1) Febrile neutropenia Current Visit: Yes Status: Acute Code(s): D70.9 - NEUTROPENIA, UNSPECIFIED; R50.81 - FEVER PRESENTING WITH CONDITIONS CLASSIFIED ELSEWHERE SNOMED Code(s) : 740051377 (2) Debilitated patient Current Visit: No Status: Acute Priority: High Code(s): R53.81 - OTHER MALAISE SNOMED Code(s): 74906208 (3) Diabetes Current Visit: No Status: Acute Code(s): E11.9 - TYPE 2 DIABETES MELLITUS WITHOUT COMPLICATIONS SNOMED Code(s): 00131703 (4) High risk for readmission Current Visit: No Status: Acute Code(s): Z91.89 - OTH PERSONAL RISK FACTORS , NOT ELSEWHERE CLASSIFIED SNOMED Code(s): 478838642 (5) Pancytopenia due to chemotherapy Current Visit: No Status: Acute Priority: High Code(s): D61.810 - ANTINEOPLASTIC CHEMOTHERAPY INDUCED PANCYTOPENIA SNOMED Code(s): 1246677 (6) Hypertension Current Visit: No Status: Chronic Code(s): I10 - ESSENTIAL (PRIMARY) HYPERTENSION SNOMED Code(s): 30024047 (7) Hypothyroid Current Visit: No Status: Chronic Code(s): E03.9 - HYPOTHYROIDISM, UNSPECIFIED SNOMED Code(s): 04931612 Plan: Check CBC and CMP in a.m. Consult oncology for assistance. Continue antibiotic treatment at this time. Prognosis guarded secondary to her age and multiple comorbidities per Question need for sliding scale. Advance diet. See orders otherwise.
[2018-05-10] MEDS: LEVOTHYROXINE 137 MCG TAB PO SCH (07:29)
[2018-05-10] MEDS: VANCOMYCIN 2,000 MG in SODIUM CHLORIDE 0.9% 500 ML 500 ML IVPB SCH ×2 (08:06→23:01)
[2018-05-10] MEDS: ALLOPURINOL 300 MG TAB PO SCH (08:33)
[2018-05-10] MEDS: PANTOPRAZOLE 40 MG TABLET PO SCH (08:33)
[2018-05-10] MEDS: LISINOPRIL 10 MG TAB PO SCH (08:34)
[2018-05-10] MEDS: glipiZIDE 10 MG TAB PO SCH ×2 (08:34→18:19)
[2018-05-10 10:30] LABS: HCT 24.5 % (34.0-46.0); HGB 8.1 gm/dL (11.4-16.0); MCH 32.6 pg (25.0-35.0); MCHC 32.9 g/dL (31.0-37.0); MCV 99.1 fL (80.0-100.0); Macrocytosis Slight; Mean Platelet Volume 6.7; RBC 2.48 m/uL (3.80-5.40); RDW 15.7 % (11.5-15.5)
[2018-05-10] MEDS: ACETAMINOPHEN TAB 325 MG TAB PO PRN ×2 (10:40→23:29)
[2018-05-10 10:44] LABS: WBC 0.2 k/uL (3.8-10.6)
--- NOTE | 2018-05-10 11:21 | P.CONS ---
History of Present Illness - Reason for Consult Consult date: 05/10/18 febrile Neutropenia Requesting physician: Kilo San - Chief Complaint Recurrent Falls, Pancytopenia - History of Present Illness Ms. Yeung is a pleasant 72 year old female who is well known to our practice for extensive history of multiple cancers with treatments. 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 She is status Post Treatment with Doxil, Cytoxan Rituxan and High Dose Prednisone, treatment given on . She Received neulasta injection on 05/04/18. She presented in the office yesterday, via wheelchair with her supportive for a follow-up. She was in constant movement, her heartrate was greater than 140, Blood pressure was difficult to read, especially with movement. She was a poor historian, high anxiety. She expressed word searching, inability to stay oin track with her thoughts, flight of ideas, and intermittent appropriate acknowledgement and answering of questions. her the the patient state it has been worsening over the past week. She has had over 5 falls this week, and two prior to being seen in follow-up yesterday. One getting out of car and other in bathroom. She was severly pancytopenic, low grade fever as well, she was sent through Emergency for further evaluation. Review of Systems A 14 point review of systems assessed and completed and all negative except HPI Past Medical History Past Medical History: Cancer, Diabetes Mellitus Additional Past Medical History / Comment(s): Ovarian Cancer, Skin cancer, varicose veins, SOB, hemorrhiods, ovarian disorder, UTI, arthritis, chronic back pain, all luekem. Chronic anemia with frequent blood transfusions. Thrombocytopenia with plt transfusions. lymphoma History of Any Multi-Drug Resistant Organisms: MRSA, VRE Year Discovered:: 12/01/2013-MRSA; 10/20/2013-VRE MDRO Source:: MRSA-Abd Wound: VRE-Urine Past Surgical History: Appendectomy, Hysterectomy Additional Past Surgical History / Comment(s): colonoscopy, abdominal surgery, oophrectomy, shoulder surgery, knee replacement, foot surgery Past Anesthesia/Blood Transfusion Reactions: No Reported Reaction Past Psychological History: Depression Smoking Status: Never smoker Past Alcohol Use History: Occasional Past Drug Use History: None Reported - Past Family History Father Family Medical History: No Reported History Medications and Allergies Home Medications Medication Instructions Recorded Confirmed Type Amitriptyline HCl [Elavil] 100 mg PO HS 10/19/13 05/09/18 History Celecoxib [CeleBREX] 200 mg PO BID 10/19/13 05/09/18 History Levothyroxine Sodium [Synthroid] 137 mcg PO DAILY 10/19/13 05/09/18 History Omeprazole [PriLOSEC] 20 mg PO AC-BID 10/19/13 05/09/18 History Allopurinol [Zyloprim] 300 mg PO DAILY 05/09/18 05/09/18 History Insulin Regular, Human [NovoLIN R] See Protocol SQ AC-TID PRN 05/09/18 05/09/18 History Lisinopril [Zestril] 10 mg PO DAILY 05/09/18 05/09/18 History Prochlorperazine [Compazine] 10 mg PO TID PRN 05/09/18 05/09/18 History glipiZIDE [Glucotrol] 10 mg PO AC-BID 05/09/18 05/09/18 History metFORMIN HCL 1,000 mg PO BID 05/09/18 05/09/18 History Allergies Allergy/AdvReac Type Severity Reaction Status Date / Time adhesive Allergy Unknown Verified 05/09/18 17:52 meclizine HCl [From Antivert] Allergy Unknown Verified 05/09/18 17:52 cefdinir [Cefdinir] AdvReac Nausea Verified 05/09/18 17:52 Physical Exam Vitals: Vital Signs Temp Pulse Pulse Resp BP BP Pulse Ox 05/10/18 09:17 97.8 F 103 H 16 125/74 99 05/10/18 08:53 97.8 F 103 H 16 125/74 99 05/10/18 07:00 97.9 F 105 H 15 106/50 98 05/10/18 03:00 110 H 15 121/64 98 05/10/18 01:45 118 H 18 130/66 97 05/10/18 00:25 129 H 17 133/67 98 05/09/18 23:14 99.7 F H 124 H 18 125/73 99 05/09/18 20:57 101.4 F H 122 H 18 132/73 96 05/09/18 20:02 100.3 F H 126 H 18 97/64 95 05/09/18 19:18 100.5 F H 130 H 18 111/68 96 05/09/18 18:36 129 H 18 154/62 94 L 05/09/18 18:08 132 H 05/09/18 17:45 18 154/62 99 05/09/18 16:18 99.0 F 134 H 20 102/55 94 L Intake and Output 05/09/18 05/10/18 05/10/18 22:59 06:59 14:59 Other: Weight 110.677 kg General Impression: Alert and oriented x3, mild distress HEENT: NT, NC e mucous membranes moist. Cardiovascular: Tachycardic Chest: Lungs clear to auscultation bilaterally, no rhonchi, no wheeze, no rales Abdomen: Bowel sounds present, abdomen soft, non-tender, non-distended, no organomegaly Musculoskeletal: Pulses present and equal in all extremities, no peripheral edema Motor: Power 5/5 bilaterally, no focal deficits noted Neurological: overall weakness and in constant moving Skin: Intact with no visualized rashes Psych: Normal affect and mood Results CBC & Chem 7: 05/10/18 08:31 05/09/18 17:30 Labs: Abnormal Lab Results - Last 24 Hours (Table) 05/09/18 05/09/18 05/09/18 Range/Units 17:30 17:30 17:30 WBC 0.2 L* (3.8-10.6) k/uL RBC 2.90 L (3.80-5.40) m/uL Hgb 9.5 L (11.4-16.0) gm/dL Hct 28.5 L (34.0-46.0) % RDW 15.9 H (11.5-15.5) % Plt Count 32 L (150-450) k/uL APTT (22.0-30.0) sec Sodium 131 L (137-145) mmol/L Chloride 95 L (98-107) mmol/L BUN 25 H (7-17) mg/dL Glucose 225 H (74-99) mg/dL Plasma Lactic Acid Minh (0.7-2.0) mmol/L AST 11 L (14-36) U/L Total Creatine Kinase <20 L (30-135) U/L Total Protein 6.2 L (6.3-8.2) g/dL Urine Glucose (UA) (Negative) 05/09/18 05/09/18 05/09/18 Range/Units 17:30 17:30 21:45 WBC (3.8-10.6) k/uL RBC (3.80-5.40) m/uL Hgb (11.4-16.0) gm/dL Hct (34.0-46.0) % RDW (11.5-15.5) % Plt Count (150-450) k/uL APTT 21.8 L (22.0-30.0) sec Sodium (137-145) mmol/L Chloride (98-107) mmol/L BUN (7-17) mg/dL Glucose (74-99) mg/dL Plasma Lactic Acid Minh 2.4 H* (0.7-2.0) mmol/L AST (14-36) U/L Total Creatine Kinase (30-135) U/L Total Protein (6.3-8.2) g/dL Urine Glucose (UA) 3+ H (Negative) Microbiology - Last 24 Hours (Table) 05/09/18 17:30 Blood Culture - Final Blood Chest x-ray: report reviewed Assessment and Plan Plan: Assessment and Recommendations: 1. Large B Cell Lymphoma: Status Post Cycle One: - Chemotherapy on 05/03/18 with Rituxan, Cytoxan, Doxil, Prednisone, and Neulasta - Follow-up with Dr. Garrett as outpatient regarding resuming chemotherapy after acute illness resolves 2. Febrile Neutropenia: T-Max 101.4 - Blood Culture X1 drawn in ER - Gram Neg Rods - Redraw Blood Cultures x2 - Line and Peripheral draw Please - Antibiotics with Cefepime and Vancomycin - Antifungal and Antiviral Prophylaxis - Dr. Blevins from Infectious Disease Consulted to Evaluate and Treat 3. Pancytopenia - Secondary to Chemotherapy and diffuse Bone Marrow disease from many line of chemotherapy - Monitor for s/s bleeding - Transfuse Platlets less than 15 - in a febrile neutropenic patient - All Irradiated Blood Products - Transfuse Hemoglobin less than 7, no intervention needed from CBC yesterday - Await CBC today - CBC Daily with differential 4. Recurrent Falls, Uncordinated Movements, Word Searching, Inability to Concentrate: - MRI of Brain Ordered - If symptoms persist after infection cleared LP maybe resonable for concern for possible disease Leptomeningeal Disease 5. Persistent Tachycardia: Probable Reactive to above, monitor. 6. HX: ALL - Status Post Chemo 7. Hx: Ovarian Cancer with Surgical Hysterectomy and Chemotherapy Thank you for allowing us to participate in the care of this patient, we will follow along with you. Jody Ponce NP
[2018-05-10 12:19] LABS: Poikilocytosis (M) Present
[2018-05-10 12:57] LABS: Glucose,Whole Blood 137 mg/dL (75-99)
[2018-05-10 13:02] LABS: ALT 26 U/L (9-52); AST 11 U/L (14-36); Albumin 2.7 g/dL (3.5-5.0); Alkaline Phosphatase 47 U/L (38-126); Anion Gap 6 mmol/L; Blood Urea Nitrogen 16 mg/dL (7-17); Calcium 8.7 mg/dL (8.4-10.2); Carbon Dioxide 25 mmol/L (22-30); Chloride 104 mmol/L (98-107); Glucose 132 mg/dL (74-99); LDH 280 U/L (313-618); Potassium 4.4 mmol/L (3.5-5.1); Sodium 135 mmol/L (137-145); Total Bilirubin 0.4 mg/dL (0.2-1.3)
[2018-05-10] MEDS: ACYCLOVIR 200 MG CAP PO SCH ×2 (13:30→23:01)
[2018-05-10] MEDS: FLUCONAZOLE 100 MG TAB PO SCH (15:44)
[2018-05-10 18:01] LABS: Glucose,Whole Blood 178 mg/dL (75-99)
[2018-05-10 21:05] LABS: Glucose,Whole Blood 210 mg/dL (75-99)
[2018-05-10] MEDS: AMITRIPTYLINE HCL 50 MG TAB PO SCH (21:23)
--- NOTE | 2018-05-10 21:32 | MR ---
EXAMINATION TYPE: MR brain wo/w con DATE OF EXAM: 05/10/2018 COMPARISON: NONE HISTORY: Recurrent falls, 2 yesterday, changes in vision, Hx of CA TECHNIQUE: Multiplanar, multisequence images of the brain and brainstem is performed without and with IV contras t, utilizing 10 mL intravenous Gadavist . FINDINGS: Diffusion weighted images demonstrate no evidence of a recent infarct or other diffusion ab normality. There is no worrisome extra-axial fluid collection. There is mild ventricular and sulcal prominence consistent with mild age-related cerebral atrophy. There are scattered foci of T2 hyperint ensity seen throughout the white matter bilaterally. Lesions are nonspecific in appearance and distri bution but most likely a basis of product of chronic small vessel ischemic change in patient of this age. Midline structures demonstrate normal morphology. The craniocervical junction appears within normal limits. Post contrast images demonstrate oval 1.2 cm AP diameter enhancing lesion in the midline jennie ng the anterior interhemispheric fissure seen best sagittal image 83, could reflect small meningioma. No suspicious enhancing intraparenchymal mass is identified.. The dural venous sinuses appear patent . Mild mucosal thickening involving ethmoid sinuses is present bilaterally. Globes are intact bilater ally. IMPRESSION: 1. Background mild diffuse cerebral atrophy and mild chronic small vessel ischemic change. 2. Probable small parasagittal meningioma along the anterior interhemispheric fissure. No suspicious enhancing intraparenchymal mass.
--- NOTE | 2018-05-11 00:40 | P.CONS ---
History of Present Illness - Reason for Consult Consult date: 05/10/18 - Chief Complaint Progressive weakness - History of Present Illness 72-year-old female who has a very extensive past medical history starting with breast carcinoma that was successfully treated. 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 Recently however was feeling poorly with increasing fatigue and malaise without evidence of lymphoma has not been receiving chemotherapy for her hematological malignancy. At home she was feeling poorly started to have falls having increasing difficulties with her daily activities. She was seen at the oncologist office and with her profound fatigue and malaise and neutropenia she was at needed to hospital. She's also noticed to have a fever and with this the infectious diseases consultation was requested. She relates since admission and receiving fluids antibiotic therapy she is starting to feel slightly better. Review of Systems 72-year-old woman feels poorly generalized malaise HEENT:Denies headache or acute visual change. Denies sinus or mouth discomforts. Denies neck stiffness or pain. Denies significant oral cavity pain. Denies difficulty on swallowing. Lungs: Denies significant shortness of breath, cough, sputum production, or hemoptysis. Cardiovascular: Denies significant shortness of breath, chest pain, chest wall pain, orthopnea, dyspnea on exertion, syncope Gastrointestinal:Denies nausea, vomiting, diarrhea, constipation, hematemesis, melena, hematochezia. No no significant change of bowel habit noticed. Musculoskeletal: denies significant myalgias or arthralgias. No new joint swelling. Denies new back pain. Skin: Denies new rash or lesions. No new ulcers or wounds are related.. Neuro: Denies headache or visual change. Generalized weakness but no focal weakness Psych: Some anxiety related to her underlying disease without depression Endocrine: Significant fatigue weight has decreased slightly Past Medical History Past Medical History: Cancer, Diabetes Mellitus Additional Past Medical History / Comment(s): Ovarian Cancer, Skin cancer, varicose veins, SOB, hemorrhiods, ovarian disorder, UTI, arthritis, chronic back pain, all luekem. Chronic anemia with frequent blood transfusions. Thrombocytopenia with plt transfusions. 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 No experience. Travel history. No animals in the home at this time. She herself is not a tobacco smoker but had extensive secondhand smoking when she was a child Smoking Status: Never smoker Past Alcohol Use History: Occasional Past Drug Use History: None Reported - Past Family History Father Family Medical History: No Reported History Medications and Allergies Home Medications and Allergies Comment(s): Current Medications Acetaminophen (Tylenol Tab) 650 mg PO Q6HR PRN PRN Reason: Fever and/ or Pain Last Admin: 05/10/18 23:29 Dose: 650 mg Acyclovir (Zovirax) 400 mg PO BID [facility] Last Admin: 05/10/18 23:01 Dose: 400 mg Allopurinol (Zyloprim) 300 mg PO DAILY [facility] Last Admin: 05/10/18 08:33 Dose: 300 mg Amitriptyline HCl (Elavil) 100 mg PO HS [facility] Last Admin: 05/10/18 21:23 Dose: 100 mg Fluconazole (Diflucan) 100 mg PO DAILY [facility] Last Admin: 05/10/18 15:44 Dose: 100 mg Glipizide (Glucotrol) 10 mg PO AC-BID [facility] Last Admin: 05/10/18 18:19 Dose: 10 mg Vancomycin HCl 2,000 mg/ (Sodium Chloride) 500 mls @ 167 mls/hr IVPB Q16H [facility] Last Admin: 05/10/18 23:01 Dose: 167 mls/hr Levothyroxine Sodium (Synthroid) 137 mcg PO DAILY@0630 [facility] Last Admin: 05/10/18 07:29 Dose: 137 mcg Lisinopril (Zestril) 10 mg PO DAILY [facility] Last Admin: 05/10/18 08:34 Dose: 10 mg Magnesium Hydroxide (Milk Of Magnesia) 2,400 mg PO BID PRN PRN Reason: Constipation Last Admin: 05/10/18 18:19 Dose: 2,400 mg Metformin HCl (Glucophage) 1,000 mg PO BID [facility] Last Admin: 05/10/18 21:23 Dose: 1,000 mg Naloxone HCl (Narcan) 0.2 mg IV Q2M PRN PRN Reason: Opioid Reversal Pantoprazole Sodium (Protonix) 40 mg PO AC-BRKFST [facility] Last Admin: 05/10/18 08:33 Dose: 40 mg Prochlorperazine Maleate (Compazine) 10 mg PO TID PRN PRN Reason: Nausea Home Medications Medication Instructions Recorded Confirmed Type Amitriptyline HCl [Elavil] 100 mg PO HS 10/19/13 05/09/18 History Celecoxib [CeleBREX] 200 mg PO BID 10/19/13 05/09/18 History Levothyroxine Sodium [Synthroid] 137 mcg PO DAILY 10/19/13 05/09/18 History Omeprazole [PriLOSEC] 20 mg PO AC-BID 10/19/13 05/09/18 History Allopurinol [Zyloprim] 300 mg PO DAILY 05/09/18 05/09/18 History Insulin Regular, Human [NovoLIN R] See Protocol SQ AC-TID PRN 05/09/18 05/09/18 History Lisinopril [Zestril] 10 mg PO DAILY 05/09/18 05/09/18 History Prochlorperazine [Compazine] 10 mg PO TID PRN 05/09/18 05/09/18 History glipiZIDE [Glucotrol] 10 mg PO AC-BID 05/09/18 05/09/18 History metFORMIN HCL 1,000 mg PO BID 05/09/18 05/09/18 History Allergies Allergy/AdvReac Type Severity Reaction Status Date / Time adhesive Allergy Unknown Verified 05/09/18 17:52 meclizine HCl [From Antivert] Allergy Unknown Verified 05/09/18 17:52 cefdinir [Cefdinir] AdvReac Nausea Verified 05/09/18 17:52 Physical Exam Vitals: Vital Signs Temp Pulse Pulse Resp BP BP BP 05/11/18 00:05 101.3 F H 125 H 18 162/74 05/10/18 20:10 98.8 F 123 H 18 144/85 05/10/18 17:54 99.4 F 116 H 20 148/65 05/10/18 11:48 97.9 F 98 16 102/58 05/10/18 09:17 97.8 F 103 H 16 125/74 05/10/18 08:53 97.8 F 103 H 16 125/74 05/10/18 07:00 97.9 F 105 H 15 106/50 05/10/18 03:00 110 H 15 121/64 05/10/18 01:45 118 H 18 130/66 Pulse Ox 05/11/18 00:05 98 05/10/18 20:10 97 05/10/18 17:54 98 05/10/18 11:48 98 05/10/18 09:17 99 05/10/18 08:53 99 05/10/18 07:00 98 05/10/18 03:00 98 05/10/18 01:45 97 Intake and Output 05/10/18 05/10/18 05/11/18 14:59 22:59 06:59 Intake Total 240 Output Total 2500 Balance -2260 Intake: Oral 240 Output: Urine 2500 Other: Voiding Method Indwelling Catheter Indwelling Catheter # Bowel Movements 1 Pleasant obese 72-year-old woman who was last comfortable at this time HEENT: Anicteric conjunctiva are pink and moist nasal mucosa grossly intact without significant lesions, there is no thrush. Neck: The neck is supple without significant lymphadenopathy or thyromegaly. Lungs: Good bilateral air entry without significant crackles or wheezing. There is no significant bronchial sounds. There is no egophony or dullness. Heart: Regular rate and rhythm with an audible S1-S2, no S3 no S4. There is no significant murmur click or rub, PMI was nondisplaced. Abdomen: Positive bowel sounds soft and nontender without palpable masses or organomegaly. There was no guarding or rebound. Extremities: The upper extremities have excellent pulses they are symmetric, no significant petechiae or telangiectasia. No splinter hemorrhages were noted. Lower extremities have some diffuse edema but no significant open ulcerations are seen Neuro: Awake alert oriented to person place and time. There are no acute new gross focal sensory motor deficits. Results CBC & Chem 7: 05/10/18 08:31 05/10/18 12:13 Labs: Abnormal Lab Results - Last 24 Hours (Table) 05/10/18 05/10/18 05/10/18 Range/Units 08:31 12:13 12:26 WBC 0.2 L* (3.8-10.6) k/uL RBC 2.48 L (3.80-5.40) m/uL Hgb 8.1 L (11.4-16.0) gm/dL Hct 24.5 L (34.0-46.0) % RDW 15.7 H (11.5-15.5) % Plt Count 18 L* (150-450) k/uL Sodium 135 L (137-145) mmol/L Glucose 132 H (74-99) mg/dL POC Glucose (mg/dL) 137 H (75-99) mg/dL AST 11 L (14-36) U/L Lactate Dehydrogenase 280 L (313-618) U/L Total Protein 5.0 L (6.3-8.2) g/dL Albumin 2.7 L (3.5-5.0) g/dL 05/10/18 05/10/18 Range/Units 18:00 21:03 WBC (3.8-10.6) k/uL RBC (3.80-5.40) m/uL Hgb (11.4-16.0) gm/dL Hct (34.0-46.0) % RDW (11.5-15.5) % Plt Count (150-450) k/uL Sodium (137-145) mmol/L Glucose (74-99) mg/dL POC Glucose (mg/dL) 178 H 210 H (75-99) mg/dL AST (14-36) U/L Lactate Dehydrogenase (313-618) U/L Total Protein (6.3-8.2) g/dL Albumin (3.5-5.0) g/dL Microbiology - Last 24 Hours (Table) 05/09/18 17:30 Blood Culture Gram Stain - Preliminary Blood Blood Culture - Preliminary Gram Neg Bacilli 05/09/18 17:30 Blood Culture - Final Blood Laboratory Results WBC 0.2 k/uL (3.8-10.6) L* 05/10/18 08:31 RBC 2.48 m/uL (3.80-5.40) L 05/10/18 08:31 Hgb 8.1 gm/dL (11.4-16.0) L 05/10/18 08:31 Hct 24.5 % (34.0-46.0) L 05/10/18 08:31 MCV 99.1 fL (80.0-100.0) 05/10/18 08:31 MCH 32.6 pg (25.0-35.0) 05/10/18 08:31 MCHC 32.9 g/dL (31.0-37.0) 05/10/18 08:31 RDW 15.7 % (11.5-15.5) H 05/10/18 08:31 Plt Count 18 k/uL (150-450) L* 05/10/18 08:31 Neutrophils # HARNESS BRUSHER 05/10/18 08:31 Differential Comment 05/10/18 08:31 Manual Slide Review Performed 05/10/18 08:31 Poikilocytosis (manual Present 05/10/18 08:31 Anisocytosis (manual) Present 05/09/18 17:30 Macrocytosis Slight 05/10/18 08:31 PT 9.9 sec (9.0-12.0) 05/09/18 17:30 INR 1.0 (<1.2) 05/09/18 17:30 APTT 21.8 sec (22.0-30.0) L 05/09/18 17:30 Sodium 135 mmol/L (137-145) L 05/10/18 12:13 Potassium 4.4 mmol/L (3.5-5.1) 05/10/18 12:13 Chloride 104 mmol/L (98-107) 05/10/18 12:13 Carbon Dioxide 25 mmol/L (22-30) 05/10/18 12:13 Anion Gap 6 mmol/L 05/10/18 12:13 BUN 16 mg/dL (7-17) 05/10/18 12:13 Creatinine 0.68 mg/dL (0.52-1.04) 05/10/18 12:13 Est GFR (CKD-EPI)AfAm >90 (>60 ml/min/1.73 sqM) 05/10/18 12:13 Est GFR (CKD-EPI)NonAf 88 (>60 ml/min/1.73 sqM) 05/10/18 12:13 Glucose 132 mg/dL (74-99) H 05/10/18 12:13 POC Glucose (mg/dL) 210 mg/dL (75-99) H 05/10/18 21:03 POC Glu Child And Family Therapist ID Daniella Her Candy 05/10/18 21:03 Lactic Ac Sepsis Rflx Y 05/09/18 17:54 Plasma Lactic Acid Minh 1.8 mmol/L (0.7-2.0) 05/09/18 21:06 Uric Acid 3.7 mg/dL (3.7-7.4) 05/09/18 17:30 Calcium 8.7 mg/dL (8.4-10.2) 05/10/18 12:13 Ionized Calcium Lilian 5.0 mg/dL (4.5-5.3) 05/09/18 17:30 Phosphorus 2.9 mg/dL (2.5-4.5) 05/09/18 17:30 Magnesium 1.6 mg/dL (1.6-2.3) 05/09/18 17:30 Total Bilirubin 0.4 mg/dL (0.2-1.3) 05/10/18 12:13 AST 11 U/L (14-36) L 05/10/18 12:13 ALT 26 U/L (9-52) 05/10/18 12:13 Alkaline Phosphatase 47 U/L (38-126) 05/10/18 12:13 Lactate Dehydrogenase 280 U/L (313-618) L 05/10/18 12:13 Total Creatine Kinase <20 U/L (30-135) L 05/09/18 17:30 CK-MB (CK-2) 0.2 ng/mL (0.0-2.4) 05/09/18 17:30 CK-MB (CK-2) Rel Index 05/09/18 17:30 Troponin I <0.012 ng/mL (0.000-0.034) 05/09/18 17:30 Total Protein 5.0 g/dL (6.3-8.2) L 05/10/18 12:13 Albumin 2.7 g/dL (3.5-5.0) L 05/10/18 12:13 Urine Color Light Yellow 05/09/18 21:45 Urine Appearance Clear (Clear) 05/09/18 21:45 Urine pH 5.0 (5.0-8.0) 05/09/18 21:45 Ur Specific [place] 1.010 (1.001-1.035) 05/09/18 21:45 Urine Protein Negative (Negative) 05/09/18 21:45 Urine Glucose (UA) 3+ (Negative) H 05/09/18 21:45 Urine Ketones Negative (Negative) 05/09/18 21:45 Urine Blood Negative (Negative) 05/09/18 21:45 Urine Nitrite Negative (Negative) 05/09/18 21:45 Urine Bilirubin Negative (Negative) 05/09/18 21:45 Urine Urobilinogen <2.0 mg/dL (<2.0) 05/09/18 21:45 Ur Leukocyte Esterase Negative (Negative) 05/09/18 21:45 Microbiology 05/09/18 17:30 Blood Blood Culture Gram Stain - Preliminary 05/09/18 17:30 Blood Blood Culture - Preliminary Gram Neg Bacilli 05/09/18 17:30 Blood Blood Culture - Final Chest x-ray: image reviewed (Clearing of prior infiltrates) Assessment and Plan (1) Febrile neutropenia Narrative/Plan: 78-year-old woman presents to Hospital feeling poorly with evidence of fever chills generalized malaise increasing weakness and was seen by her oncologist and directed to hospital. There is evidence of febrile neutropenia and evidence of a positive blood culture for which the infectious diseases consultation is requested. The patient will be treated with cefepime, she did have some nausea related to Cefdinir which is an oral medication down she'll have this difficulty with cefepime and it is ordered. Follow blood cultures have been requested. She. He received Neulasta in the outpatient setting with her most recent chemotherapy. Oncology is following and will determine when her next growth factor can be given. Temperature 102.4 is improving with hydration fluids and antibiotic therapy. Because of her prior extensive treatment she is having difficulty with her bone marrow recovery. Current Visit: Yes Status: Acute Code(s): D70.9 - NEUTROPENIA, UNSPECIFIED; R50.81 - FEVER PRESENTING WITH CONDITIONS CLASSIFIED ELSEWHERE SNOMED Code(s) : 584517238 (2) Anemia Current Visit: No Status: Acute Code(s): D64.9 - ANEMIA, UNSPECIFIED SNOMED Code(s): 963493489 (3) Pancytopenia due to chemotherapy Current Visit: No Status: Acute Priority: High Code(s): D61.810 - ANTINEOPLASTIC CHEMOTHERAPY INDUCED PANCYTOPENIA SNOMED Code(s): 5561131
[2018-05-11] MEDS: CEFEPIME 2 GM in SODIUM CHLORIDE 0.9% 50 ML IVPB SCH ×3 (05:45→22:04)
[2018-05-11] MEDS: LEVOTHYROXINE 137 MCG TAB PO SCH (05:54)
[2018-05-11] MEDS: glipiZIDE 10 MG TAB PO SCH ×2 (05:54→18:21)
[2018-05-11] MEDS: PANTOPRAZOLE 40 MG TABLET PO SCH (05:54)
[2018-05-11 06:20] LABS: Glucose,Whole Blood 129 mg/dL (75-99)
[2018-05-11 07:03] LABS: HCT 25.5 % (34.0-46.0); HGB 8.4 gm/dL (11.4-16.0); MCH 32.7 pg (25.0-35.0); MCHC 32.9 g/dL (31.0-37.0); MCV 99.4 fL (80.0-100.0); Macrocytosis Slight; Mean Platelet Volume 7.1; RBC 2.56 m/uL (3.80-5.40); RDW 15.6 % (11.5-15.5)
[2018-05-11 07:07] LABS: Albumin 2.8 g/dL (3.5-5.0); Calcium 8.9 mg/dL (8.4-10.2); Potassium 4.5 mmol/L (3.5-5.1); Total Bilirubin 0.4 mg/dL (0.2-1.3); Total Protein 5.2 g/dL (6.3-8.2)
[2018-05-11 07:13] LABS: WBC 0.2 k/uL (3.8-10.6)
[2018-05-11 07:14] LABS: Platelet Count 20 k/uL (150-450)
[2018-05-11 08:50] LABS: Poikilocytosis (M) Present
--- NOTE | 2018-05-11 09:06 | P.PN ---
Subjective Principal diagnosis: Febrile neutropenia. This is a continue progress on a 70-year-old white female centimeter for febrile neutropenia with history of ovarian cancer. History of lymphoma being treated. No significant nausea or vomiting. No fever this morning. She does complain of incontinence secondary to treatment area. Objective - Vital Signs Vital signs: Vital Signs Temp 98.4 F 05/11/18 03:52 Pulse 121 H 05/11/18 03:52 Resp 18 05/11/18 03:52 BP 117/57 05/11/18 03:52 Pulse Ox 94 L 05/11/18 03:52 Intake & Output 05/10/18 05/11/18 05/11/18 18:59 06:59 18:59 Intake Total 240 Output Total 1500 2300 Balance -1260 -2300 Weight 127 kg Intake: Oral 240 Output: Urine 1500 2300 Other: Voiding Method Indwelling Catheter Indwelling Catheter # Bowel Movements 2 - Constitutional General appearance: Present: average body habitus - EENT Eyes: Absent: abnormal pupil - Neck Neck: Absent: lymphadenopathy - Cardiovascular Rhythm: regular Heart sounds: normal: S1, S2 Abnormal Heart Sounds: Absent: S3 Gallop - Gastrointestinal General gastrointestinal: Present: soft. Absent: tenderness - Psychiatric Psychiatric: Present: A&O x's 3 - Labs CBC & Chem 7: 05/11/18 05:49 05/11/18 05:49 Labs: Abnormal Lab Results - Last 24 Hours (Table) 05/10/18 05/10/18 05/10/18 Range/Units 08:31 12:13 12:26 WBC 0.2 L* (3.8-10.6) k/uL RBC 2.48 L (3.80-5.40) m/uL Hgb 8.1 L (11.4-16.0) gm/dL Hct 24.5 L (34.0-46.0) % RDW 15.7 H (11.5-15.5) % Plt Count 18 L* (150-450) k/uL Sodium 135 L (137-145) mmol/L Glucose 132 H (74-99) mg/dL POC Glucose (mg/dL) 137 H (75-99) mg/dL AST 11 L (14-36) U/L Lactate Dehydrogenase 280 L (313-618) U/L Total Protein 5.0 L (6.3-8.2) g/dL Albumin 2.7 L (3.5-5.0) g/dL 05/10/18 05/10/18 05/11/18 Range/Units 18:00 21:03 05:49 WBC (3.8-10.6) k/uL RBC (3.80-5.40) m/uL Hgb (11.4-16.0) gm/dL Hct (34.0-46.0) % RDW (11.5-15.5) % Plt Count (150-450) k/uL Sodium 135 L (137-145) mmol/L Glucose 125 H (74-99) mg/dL POC Glucose (mg/dL) 178 H 210 H (75-99) mg/dL AST (14-36) U/L Lactate Dehydrogenase (313-618) U/L Total Protein 5.2 L (6.3-8.2) g/dL Albumin 2.8 L (3.5-5.0) g/dL 05/11/18 05/11/18 Range/Units 05:49 06:11 WBC 0.2 L* (3.8-10.6) k/uL RBC 2.56 L (3.80-5.40) m/uL Hgb 8.4 L (11.4-16.0) gm/dL Hct 25.5 L (34.0-46.0) % RDW 15.6 H (11.5-15.5) % Plt Count 20 L (150-450) k/uL Sodium (137-145) mmol/L Glucose (74-99) mg/dL POC Glucose (mg/dL) 129 H (75-99) mg/dL AST (14-36) U/L Lactate Dehydrogenase (313-618) U/L Total Protein (6.3-8.2) g/dL Albumin (3.5-5.0) g/dL Microbiology - Last 24 Hours (Table) 05/09/18 17:30 Blood Culture Gram Stain - Preliminary Blood Blood Culture - Preliminary Gram Neg Bacilli 05/09/18 17:30 Blood Culture - Final Blood Assessment and Plan (1) Febrile neutropenia Current Visit: Yes Status: Acute Code(s): D70.9 - NEUTROPENIA, UNSPECIFIED; R50.81 - FEVER PRESENTING WITH CONDITIONS CLASSIFIED ELSEWHERE SNOMED Code(s) : 779304445 (2) Debilitated patient Current Visit: No Status: Acute Priority: High Code(s): R53.81 - OTHER MALAISE SNOMED Code(s): 47664749 (3) Diabetes Current Visit: No Status: Acute Code(s): E11.9 - TYPE 2 DIABETES MELLITUS WITHOUT COMPLICATIONS SNOMED Code(s): 10630989 (4) High risk for readmission Current Visit: No Status: Acute Code(s): Z91.89 - OTH PERSONAL RISK FACTORS , NOT ELSEWHERE CLASSIFIED SNOMED Code(s): 155289228 (5) Pancytopenia due to chemotherapy Current Visit: No Status: Acute Priority: High Code(s): D61.810 - ANTINEOPLASTIC CHEMOTHERAPY INDUCED PANCYTOPENIA SNOMED Code(s): 3598342 (6) Hypertension Current Visit: No Status: Chronic Code(s): I10 - ESSENTIAL (PRIMARY) HYPERTENSION SNOMED Code(s): 93382655 (7) Hypothyroid Current Visit: No Status: Chronic Code(s): E03.9 - HYPOTHYROIDISM, UNSPECIFIED SNOMED Code(s): 81561437 Plan: Appreciate multiple consultants input. Check CBC in a.m. Dr. Ferreira's group will covering for the weekend. We'll transfer to oncology when bed available. Prognosis is somewhat guarded secondary to her multiple comorbidities. Time with Patient: Less than 30
[2018-05-11] MEDS: FLUCONAZOLE 100 MG TAB PO SCH (09:31)
[2018-05-11] MEDS: metFORMIN 500 MG TAB PO SCH ×2 (09:31→22:04)
[2018-05-11] MEDS: ALLOPURINOL 300 MG TAB PO SCH (09:31)
[2018-05-11] MEDS: LISINOPRIL 10 MG TAB PO SCH (09:31)
[2018-05-11] MEDS: ACYCLOVIR 200 MG CAP PO SCH ×2 (09:33→22:04)
[2018-05-11 11:32] LABS: Glucose,Whole Blood 202 mg/dL (75-99)
[2018-05-11 12:14] VITALS: BMI 45.1
[2018-05-11 15:20] LABS: Platelet Count 18 k/uL (150-450)
[2018-05-11 17:11] LABS: Glucose,Whole Blood 180 mg/dL (75-99)
--- NOTE | 2018-05-11 18:08 | P.PN ---
Subjective Progress Note Date: 05/11/18 The patient continues to spike fevers, in the 101-102 range. However she is definitely improved in terms of her mental status, which is back to baseline. She continues to be weak. She has mild nausea but no overt vomiting. She reports somewhat loose stools, but no change from baseline. Specifically abdominal pain, cough, or new skin lesions Objective - Vital Signs Vital signs: Vital Signs Temp 99.2 F 05/11/18 13:15 Pulse 118 H 05/11/18 13:15 Resp 20 05/11/18 13:15 BP 123/89 05/11/18 13:15 Pulse Ox 99 05/11/18 13:15 Intake & Output 05/10/18 05/11/18 05/11/18 18:59 06:59 18:59 Intake Total 240 460 Output Total 1500 2300 700 Balance -1260 -2300 -240 Weight 127 kg 127 kg Intake: Intake, IV Titration 100 Amount Cefepime 2 gm In Sodium 100 Chloride 0.9% 50 ml @ 100 mls/hr IVPB Q8H [facility] Rx#: [id number] Oral 240 360 Output: Urine 1500 2300 700 Other: Voiding Method Indwelling Catheter Indwelling Catheter Indwelling Catheter # Voids 1 # Bowel Movements 2 1 - Constitutional General appearance: Present: no acute distress - EENT Eyes: Present: EOMI ENT: Present: hearing grossly normal, normal oropharynx - Respiratory Respiratory: bilateral: CTA - Cardiovascular Rhythm: regular Heart sounds: normal: S1, S2 - Gastrointestinal General gastrointestinal: Present: normal bowel sounds, soft - Integumentary Integumentary: Present: normal - Neurologic Neurologic: Present: CNII-XII intact - Musculoskeletal Musculoskeletal: Present: generalized weakness, strength equal bilaterally - Psychiatric Psychiatric: Present: A&O x's 3 - Labs CBC & Chem 7: 05/11/18 05:49 05/11/18 05:49 Labs: Abnormal Lab Results - Last 24 Hours (Table) 05/10/18 05/10/18 05/11/18 Range/Units 08:31 21:03 05:49 WBC (3.8-10.6) k/uL RBC (3.80-5.40) m/uL Hgb (11.4-16.0) gm/dL Hct (34.0-46.0) % RDW (11.5-15.5) % Plt Count 18 L* (150-450) k/uL Sodium 135 L (137-145) mmol/L Glucose 125 H (74-99) mg/dL POC Glucose (mg/dL) 210 H (75-99) mg/dL Total Protein 5.2 L (6.3-8.2) g/dL Albumin 2.8 L (3.5-5.0) g/dL 05/11/18 05/11/18 05/11/18 Range/Units 05:49 06:11 11:30 WBC 0.2 L* (3.8-10.6) k/uL RBC 2.56 L (3.80-5.40) m/uL Hgb 8.4 L (11.4-16.0) gm/dL Hct 25.5 L (34.0-46.0) % RDW 15.6 H (11.5-15.5) % Plt Count 20 L (150-450) k/uL Sodium (137-145) mmol/L Glucose (74-99) mg/dL POC Glucose (mg/dL) 129 H 202 H (75-99) mg/dL Total Protein (6.3-8.2) g/dL Albumin (3.5-5.0) g/dL 05/11/18 Range/Units 17:10 WBC (3.8-10.6) k/uL RBC (3.80-5.40) m/uL Hgb (11.4-16.0) gm/dL Hct (34.0-46.0) % RDW (11.5-15.5) % Plt Count (150-450) k/uL Sodium (137-145) mmol/L Glucose (74-99) mg/dL POC Glucose (mg/dL) 180 H (75-99) mg/dL Total Protein (6.3-8.2) g/dL Albumin (3.5-5.0) g/dL Microbiology - Last 24 Hours (Table) 05/10/18 12:13 Blood Culture - Preliminary Blood No Growth after 24 hours 05/10/18 12:19 Blood Culture - Preliminary Blood No Growth after 24 hours 05/09/18 17:30 Blood Culture Gram Stain - Final Blood Blood Culture - Final Escherichia coli Assessment and Plan (1) Febrile neutropenia Narrative/Plan: The patient's cultures are positive for gram-negative bacilli. Urine was negative. Therefore bowel source is more likely. The patient is currently on vancomycin and cefepime. ID is following. Defer to them for antibiotic management. The patient received Neulasta on 05/20/18. Expect WBC recovery the next 2-3 days. If counts are still low by day 10, then filgrastim will be added Current Visit: Yes Status: Acute Code(s): D70.9 - NEUTROPENIA, UNSPECIFIED; R50.81 - FEVER PRESENTING WITH CONDITIONS CLASSIFIED ELSEWHERE SNOMED Code(s) : 472868258 (2) Pancytopenia due to chemotherapy Narrative/Plan: Hemoglobin and platelets in a safe range. No obvious bleeding. Continue to monitor and transfuse as needed Current Visit: No Status: Acute Priority: High Code(s): D61.810 - ANTINEOPLASTIC CHEMOTHERAPY INDUCED PANCYTOPENIA SNOMED Code(s): 5060106 (3) Non-Hodgkin lymphoma Narrative/Plan: This is the patient's third malignancy, with her having a prior history of ovarian cancer as well as ALL. She is status post cycle 1 of chemotherapy. It has been discussed, that she would be at increased risk of chemo-related side effects especially marrow suppression given the extensive amount of chemotherapy that she has had in the past. Continue to monitor with aggressive supportive care. She'll resume chemotherapy after satisfactory resolution of her current issues Current Visit: Yes Status: Acute Code(s): C85.90 - NON-HODGKIN LYMPHOMA, UNSPECIFIED, UNSPECIFIED SITE SNOMED Code(s): 948433958
[2018-05-11] MEDS: VANCOMYCIN 2,000 MG in SODIUM CHLORIDE 0.9% 500 ML 500 ML IVPB SCH (18:19)
[2018-05-11] MEDS: AMITRIPTYLINE HCL 50 MG TAB PO SCH (18:22)
[2018-05-11 20:26] LABS: Glucose,Whole Blood 192 mg/dL (75-99)
[2018-05-12] MEDS: ACETAMINOPHEN TAB 325 MG TAB PO PRN ×2 (04:43→21:30)
[2018-05-12] MEDS: CEFEPIME 2 GM in SODIUM CHLORIDE 0.9% 50 ML IVPB SCH ×3 (04:45→20:48)
[2018-05-12] MEDS: LEVOTHYROXINE 137 MCG TAB PO SCH (05:39)
[2018-05-12] MEDS ORDERED: VANCOMYCIN TROUGH DUE 1 EACH MISC MISCELLANE ONE (07:00)
[2018-05-12 07:10] LABS: Glucose,Whole Blood 158 mg/dL (75-99)
[2018-05-12] MEDS: PANTOPRAZOLE 40 MG TABLET PO SCH (09:13)
[2018-05-12] MEDS: FLUCONAZOLE 100 MG TAB PO SCH (09:13)
[2018-05-12] MEDS: VANCOMYCIN 2,000 MG in SODIUM CHLORIDE 0.9% 500 ML 500 ML IVPB SCH (09:14)
[2018-05-12] MEDS: ALLOPURINOL 300 MG TAB PO SCH (09:14)
[2018-05-12] MEDS: LISINOPRIL 10 MG TAB PO SCH (09:14)
[2018-05-12] MEDS: metFORMIN 500 MG TAB PO SCH ×2 (09:14→20:48)
[2018-05-12] MEDS: glipiZIDE 10 MG TAB PO SCH ×2 (09:14→18:20)
[2018-05-12] MEDS: ACYCLOVIR 200 MG CAP PO SCH ×2 (09:14→20:48)
[2018-05-12 10:43] LABS: HGB 7.8 gm/dL (11.4-16.0); MCH 32.9 pg (25.0-35.0); MCHC 33.9 g/dL (31.0-37.0); MCV 97.3 fL (80.0-100.0); Mean Platelet Volume 8.6; RBC 2.36 m/uL (3.80-5.40); RDW 15.3 % (11.5-15.5)
[2018-05-12 10:47] LABS: Platelet Count 24 k/uL (150-450); WBC 0.2 k/uL (3.8-10.6)
[2018-05-12 11:08] LABS: Anion Gap 6 mmol/L; Blood Urea Nitrogen 15 mg/dL (7-17); Carbon Dioxide 26 mmol/L (22-30); Chloride 102 mmol/L (98-107); Glucose 144 mg/dL (74-99); Potassium 4.4 mmol/L (3.5-5.1); Sodium 134 mmol/L (137-145)
--- NOTE | 2018-05-12 11:15 | P.PN ---
Subjective Progress Note Date: 05/12/18 The patient states that she feels quite tired today and just wants to sleep. She denies any chills, nausea or vomiting. Bowel movements continue to be somewhat close but frequency is not grossly increase. She states that her abdomen feels somewhat mildly tender but she has not noted any issues with eating. Overall she looks better. Objective - Vital Signs Vital signs: Vital Signs Temp 98.8 F 05/12/18 05:41 Pulse 118 H 05/12/18 08:00 Resp 16 05/12/18 08:00 BP 151/63 05/12/18 04:41 Pulse Ox 99 05/12/18 04:41 Intake & Output 05/11/18 05/12/18 05/12/18 18:59 06:59 18:59 Intake Total 460 1165 Output Total 700 3200 Balance -240 -2035 Weight 127 kg Intake: Intake, IV Titration 100 700 Amount Cefepime 2 gm In Sodium 100 200 Chloride 0.9% 50 ml @ 100 mls/hr IVPB Q8H [facility] Rx#: [id number] Vancomycin 2,000 mg In 500 Sodium Chloride 0.9% 500 ml 500 ml @ 167 mls/hr IVPB Q16H [facility] Rx#: [id number] Oral 360 465 Output: Urine 700 3200 Uretheral (Carrizales) 2600 Other: Voiding Method Indwelling Catheter Indwelling Catheter Indwelling Catheter # Voids 1 # Bowel Movements 1 1 - Constitutional General appearance: Present: no acute distress - EENT Eyes: Present: EOMI ENT: Present: hearing grossly normal, normal oropharynx - Respiratory Respiratory: bilateral: CTA - Cardiovascular Rhythm: regular Heart sounds: normal: S1, S2 - Gastrointestinal General gastrointestinal: Present: normal bowel sounds, soft - Integumentary Integumentary: Present: normal - Neurologic Neurologic: Present: CNII-XII intact - Musculoskeletal Musculoskeletal: Present: generalized weakness, strength equal bilaterally - Psychiatric Psychiatric: Present: A&O x's 3 - Labs CBC & Chem 7: 05/12/18 07:57 05/12/18 07:57 Labs: Abnormal Lab Results - Last 24 Hours (Table) 05/10/18 05/10/18 05/11/18 Range/Units 08:31 08:31 11:30 WBC (3.8-10.6) k/uL RBC (3.80-5.40) m/uL Hgb (11.4-16.0) gm/dL Hct (34.0-46.0) % Plt Count 18 L* (150-450) k/uL Sodium (137-145) mmol/L Glucose (74-99) mg/dL POC Glucose (mg/dL) 202 H (75-99) mg/dL Hemoglobin A1c 7.0 H (4.0-6.0) % 05/11/18 05/11/18 05/12/18 Range/Units 17:10 20:24 07:09 WBC (3.8-10.6) k/uL RBC (3.80-5.40) m/uL Hgb (11.4-16.0) gm/dL Hct (34.0-46.0) % Plt Count (150-450) k/uL Sodium (137-145) mmol/L Glucose (74-99) mg/dL POC Glucose (mg/dL) 180 H 192 H 158 H (75-99) mg/dL Hemoglobin A1c (4.0-6.0) % 05/12/18 05/12/18 Range/Units 07:57 07:57 WBC 0.2 L* (3.8-10.6) k/uL RBC 2.36 L (3.80-5.40) m/uL Hgb 7.8 L (11.4-16.0) gm/dL Hct 23.0 L (34.0-46.0) % Plt Count 24 L (150-450) k/uL Sodium 134 L (137-145) mmol/L Glucose 144 H (74-99) mg/dL POC Glucose (mg/dL) (75-99) mg/dL Hemoglobin A1c (4.0-6.0) % Microbiology - Last 24 Hours (Table) 05/10/18 12:13 Blood Culture - Preliminary Blood No Growth after 24 hours 05/10/18 12:19 Blood Culture - Preliminary Blood No Growth after 24 hours 05/09/18 17:30 Blood Culture Gram Stain - Final Blood Blood Culture - Final Escherichia coli Assessment and Plan (1) Febrile neutropenia Narrative/Plan: Patient blood culture was positive for E. coli. The sources likely intra- abdominal as UA was clear. She is continuing on antibiotics. Fever pattern is improved. The patient is still neutropenic. If WBC does not recover by tomorrow, then G-CSF will be added. Current Visit: Yes Status: Acute Code(s): D70.9 - NEUTROPENIA, UNSPECIFIED; R50.81 - FEVER PRESENTING WITH CONDITIONS CLASSIFIED ELSEWHERE SNOMED Code(s) : 244807285 (2) Pancytopenia due to chemotherapy Narrative/Plan: The patient has already received Neulasta. Hemoglobin and platelets are in a safe range. Continue to monitor and supplement as needed Current Visit: No Status: Acute Priority: High Code(s): D61.810 - ANTINEOPLASTIC CHEMOTHERAPY INDUCED PANCYTOPENIA SNOMED Code(s): 5438730 (3) Non-Hodgkin lymphoma Narrative/Plan: Chemotherapy will resume in the outpatient setting once acute condition has resolved in a satisfactory manner. Current Visit: Yes Status: Acute Code(s): C85.90 - NON-HODGKIN LYMPHOMA, UNSPECIFIED, UNSPECIFIED SITE SNOMED Code(s): 090120339
[2018-05-12 12:30] LABS: Glucose,Whole Blood 146 mg/dL (75-99)
[2018-05-12 17:04] LABS: Glucose,Whole Blood 197 mg/dL (75-99)
[2018-05-12] MEDS: AMITRIPTYLINE HCL 50 MG TAB PO SCH (18:20)
[2018-05-12 20:41] LABS: Glucose,Whole Blood 236 mg/dL (75-99)
[2018-05-12] MEDS: INSULIN ASPART 100 UNIT/ML 1 ML 10 ML VIAL SQ SCH (20:48)
--- NOTE | 2018-05-12 22:48 | PN ---
PROGRESS NOTE DATE OF SERVICE: 05/12/2018 I am covering for Dr. Murrieta. This 72-year-old woman who was admitted with neutropenia, also had a fever. The patient is on broad spectrum IV antibiotics. Patient also on treatment for ovarian cancer. 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 Otherwise, no other acute changes are noted. No chest pain. No palpitations. No fever. PAST MEDICAL HISTORY: Reviewed. REVIEW OF SYSTEMS: CARDIOVASCULAR: No angina. RESPIRATORY: As mentioned. GI: No nausea. : No nvd NERVOUS SYSTEM: As mentioned earlier. CURRENT MEDICATIONS: 1. Tylenol 650 q.6 hours. 3. Zyloprim 300 mg b.i.d. 4. Elavil 100 mg p.o. q.h.s. 6. Diflucan 100 mg. 7. Glucotrol 10 mg a.c. b.i.d. 8. Synthroid 100 mcg p.o. daily. 9. Zestoretic 10 mg p.o. daily. 10.Milk of magnesia. 11.Glucophage 1000 mg p.o. b.i.d. 12.Narcan. 13.Protonix 40 mg. 14.Compazine. 15.Vancomycin 2.25 mg IV q.6h. PHYSICAL EXAMINATION: Patient is alert, oriented x3. Pulse 115, blood pressure 139/70, respiration 18 , temperature 98.8, pulse ox 98% on room air. HEENT: Conjunctivae normal. Oral mucosa. NECK: No jugular venous distention. No lymph node enlargement. CARDIOVASCULAR: S1, S2. RESPIRATORY: Diminished breath sounds at the bases. Bilateral scattered rhonchi, no crackles. ABDOMEN: Soft, nontender. LEGS: No swelling. NERVOUS SYSTEM: No focal deficits. LABS: WBC 0.2, hemoglobin 7.8, platelets are 24. ASSESSMENT: 1. Febrile neutropenia and possible Escherichia coli sepsis. 2. Carcinoma of the ovary, on chemotherapy. 3. Diabetes mellitus type 2. 4. History of skin cancer. 5. History of varicose veins. 6. History of UTI. 7. History of degenerative joint disease. 8. History of thrombocytopenia. 9. History of VRE. 10.History of MRSA. 11.History of depression. RECOMMENDATION AND DISCUSSION: In this 72-year-old woman who presented with multiple complex medical issues, monitor the patient closely, continue the current management and will repeat CBC, BMP and follow the cultures. The blood culture shows E coli. We will continue to monitor. Infectious disease also following the patient closely. Further recommendations to follow. MMODL / IJN: [id number] / ELISEO
[2018-05-12] MEDS: VANCOMYCIN 2,250 MG in SODIUM CHLORIDE 0.9% 500 ML 500 ML IVPB SCH (23:54)
[2018-05-13] MEDS: CEFEPIME 2 GM in SODIUM CHLORIDE 0.9% 50 ML IVPB SCH ×3 (05:40→22:18)
[2018-05-13] MEDS: LEVOTHYROXINE 137 MCG TAB PO SCH (05:43)
[2018-05-13 07:09] LABS: Glucose,Whole Blood 182 mg/dL (75-99)
[2018-05-13 07:57] LABS: HCT 24.3 % (34.0-46.0); HGB 8.1 gm/dL (11.4-16.0); MCH 32.9 pg (25.0-35.0); MCHC 33.2 g/dL (31.0-37.0); MCV 99.2 fL (80.0-100.0); Macrocytosis Slight; Mean Platelet Volume 8.9; RBC 2.45 m/uL (3.80-5.40); RDW 15.5 % (11.5-15.5)
[2018-05-13 08:15] LABS: Anion Gap 6 mmol/L; Blood Urea Nitrogen 16 mg/dL (7-17); Calcium 9.4 mg/dL (8.4-10.2); Carbon Dioxide 28 mmol/L (22-30); Chloride 101 mmol/L (98-107); Glucose 161 mg/dL (74-99); Platelet Count 32 k/uL (150-450); Potassium 4.7 mmol/L (3.5-5.1); Sodium 135 mmol/L (137-145); WBC 0.2 k/uL (3.8-10.6)
[2018-05-13] MEDS: FLUCONAZOLE 100 MG TAB PO SCH (09:26)
[2018-05-13] MEDS: metFORMIN 500 MG TAB PO SCH ×2 (09:26→22:18)
[2018-05-13] MEDS: glipiZIDE 10 MG TAB PO SCH ×2 (09:26→17:47)
[2018-05-13] MEDS: LISINOPRIL 10 MG TAB PO SCH (09:26)
[2018-05-13] MEDS: ALLOPURINOL 300 MG TAB PO SCH (09:27)
[2018-05-13] MEDS: PANTOPRAZOLE 40 MG TABLET PO SCH (09:27)
[2018-05-13] MEDS: ACYCLOVIR 200 MG CAP PO SCH ×2 (09:27→22:18)
[2018-05-13] MEDS: INSULIN ASPART 100 UNIT/ML 1 ML 10 ML VIAL SQ SCH ×4 (09:37→22:21)
[2018-05-13 11:58] LABS: Glucose,Whole Blood 126 mg/dL (75-99)
[2018-05-13] MEDS: VANCOMYCIN 2,250 MG in SODIUM CHLORIDE 0.9% 500 ML 500 ML IVPB SCH (16:12)
[2018-05-13 17:04] LABS: Glucose,Whole Blood 156 mg/dL (75-99)
[2018-05-13] MEDS: AMITRIPTYLINE HCL 50 MG TAB PO SCH (17:47)
--- NOTE | 2018-05-13 20:01 | PN ---
PROGRESS NOTE DATE OF SERVICE: 05/13/2018 I am covering for Dr. Murrieta. This 72-year-old woman was admitted with a febrile neutropenia, also had possibly E. coli sepsis. The patient is on chemotherapy for CA ovary. No chest pain. No palpitations. No fever. EXAM: Alert and oriented x2. Pulse is 118, blood pressure 170/56, respirations 16, temperature 99.1, pulse ox 97% room air. HEENT: Conjunctivae normal. Oral mucosa moist. Neck is no jugular venous distention. No carotid bruit. No lymph node enlargement. CARDIOVASCULAR: S1, S2. RESPIRATORY: Breath sounds diminished in the bases. A few rhonchi, no crackles. ABDOMEN: Soft, nontender. NERVOUS SYSTEM: No focal deficits. LABS: WBC 0.8, hemoglobin is 8.1, platelets are 32. ASSESSMENT: 1. Febrile neutropenia with possibly E coli sepsis. 2. Pancytopenia. 3. Carcinoma of ovary on chemotherapy. 4. Diabetes mellitus type 2. 5. History of skin cancer. 6. History of varicose veins. 7. History of urinary tract infection. 8. History of degenerative joint disease. 9. History of thrombocytopenia. 10.History of VRE. 11.History of MRSA. 12.History of depression. RECOMMENDATIONS AND DISCUSSION: I recommend to continue current management, continue monitoring and symptomatic treatment. Continue with broad-spectrum IV antibiotics. The patient is on cefepime at this time. Otherwise, I would also consider vancomycin. Otherwise hematology oncology following the patient closely. Further recommendations to follow. also following the patient closely. ECF is being considered at this time. Further recommendations to follow. MMODL / IJN: [id number] / ELISEO
--- NOTE | 2018-05-13 20:33 | P.PN ---
Subjective Progress Note Date: 05/13/18 the patient continues to complain of fatigue. She has not had recurrent fever. No history of mouth sores. Bowel movements remain somewhat loose, with incontinence. No obvious bleeding noted. she notes improvement in appetite Objective - Vital Signs Vital signs: Vital Signs Temp 97.6 F 05/13/18 12:42 Pulse 118 H 05/13/18 16:00 Resp 19 05/13/18 16:00 BP 140/56 05/13/18 12:42 Pulse Ox 97 05/13/18 12:42 Intake & Output 05/13/18 05/13/18 05/14/18 06:59 18:59 06:59 Intake Total 1180 500 Output Total 1300 600 Balance -120 -100 Weight 127 kg Intake: Intake, IV Titration 500 Amount Vancomycin 2,250 mg In 500 Sodium Chloride 0.9% 500 ml 500 ml @ 167 mls/hr IVPB Q16H [facility] Rx#: [id number] Oral 1180 Output: Urine 1300 600 Uretheral (Carrizales) 1300 Other: Voiding Method Indwelling Catheter Indwelling Catheter # Voids 1 # Bowel Movements 1 - Constitutional General appearance: Present: no acute distress - EENT Eyes: Present: EOMI ENT: Present: hearing grossly normal, normal oropharynx - Respiratory Respiratory: bilateral: CTA - Cardiovascular Rhythm: regular Heart sounds: normal: S1, S2 - Gastrointestinal General gastrointestinal: Present: normal bowel sounds, soft - Integumentary Integumentary: Present: normal - Neurologic Neurologic: Present: CNII-XII intact - Musculoskeletal Musculoskeletal: Present: generalized weakness, strength equal bilaterally - Psychiatric Psychiatric: Present: A&O x's 3, appropriate affect - Labs CBC & Chem 7: 05/13/18 07:41 05/13/18 07:41 Labs: Abnormal Lab Results - Last 24 Hours (Table) 05/12/18 05/13/18 05/13/18 Range/Units 20:39 07:08 07:41 WBC 0.2 L* (3.8-10.6) k/uL RBC 2.45 L (3.80-5.40) m/uL Hgb 8.1 L (11.4-16.0) gm/dL Hct 24.3 L (34.0-46.0) % Plt Count 32 L (150-450) k/uL Sodium (137-145) mmol/L Glucose (74-99) mg/dL POC Glucose (mg/dL) 236 H 182 H (75-99) mg/dL 05/13/18 05/13/18 05/13/18 Range/Units 07:41 11:56 17:02 WBC (3.8-10.6) k/uL RBC (3.80-5.40) m/uL Hgb (11.4-16.0) gm/dL Hct (34.0-46.0) % Plt Count (150-450) k/uL Sodium 135 L (137-145) mmol/L Glucose 161 H (74-99) mg/dL POC Glucose (mg/dL) 126 H 156 H (75-99) mg/dL Microbiology - Last 24 Hours (Table) 05/10/18 12:13 Blood Culture - Preliminary Blood No Growth after 72 hours 05/10/18 12:19 Blood Culture - Preliminary Blood No Growth after 72 hours Assessment and Plan (1) Febrile neutropenia Narrative/Plan: fever has resolved. MAXIMUM TEMPERATURE was 100 today. As noted, blood cultures were positive for Escherichia coli, likely from GI source. The organism is sensitive to current antibiotic therapy. Today is day 10 since her Neulasta. As a bruits his still low, G-CSF will be added Current Visit: Yes Status: Acute Code(s): D70.9 - NEUTROPENIA, UNSPECIFIED; R50.81 - FEVER PRESENTING WITH CONDITIONS CLASSIFIED ELSEWHERE SNOMED Code(s) : 474363825 (2) Pancytopenia due to chemotherapy Narrative/Plan: platelets and hemoglobin remain in a safe range. Continue to monitor and transfuse as needed Current Visit: No Status: Acute Priority: High Code(s): D61.810 - ANTINEOPLASTIC CHEMOTHERAPY INDUCED PANCYTOPENIA SNOMED Code(s): 3792834 (3) Non-Hodgkin lymphoma Narrative/Plan: resume chemotherapy, once acute situation is resolved and a satisfactory manner. We will likely need dose adjustment for the next cycle. Current Visit: Yes Status: Acute Code(s): C85.90 - NON-HODGKIN LYMPHOMA, UNSPECIFIED, UNSPECIFIED SITE SNOMED Code(s): 422956232
[2018-05-13 21:04] LABS: Glucose,Whole Blood 194 mg/dL (75-99)
[2018-05-13] MEDS: ACETAMINOPHEN TAB 325 MG TAB PO PRN (21:25)
[2018-05-13] MEDS: FILGRASTIM-SNDZ 480 MCG/0.8 ML SYRINGE SQ SCH (22:18)
[2018-05-14] MEDS: CEFEPIME 2 GM in SODIUM CHLORIDE 0.9% 50 ML IVPB SCH ×3 (04:34→21:33)
[2018-05-14] MEDS: LEVOTHYROXINE 137 MCG TAB PO SCH (06:13)
[2018-05-14 07:27] LABS: Glucose,Whole Blood 240 mg/dL (75-99)
[2018-05-14] MEDS: INSULIN ASPART 100 UNIT/ML 1 ML 10 ML VIAL SQ SCH ×4 (08:24→23:04)
[2018-05-14] MEDS: FLUCONAZOLE 100 MG TAB PO SCH (08:29)
[2018-05-14] MEDS: LISINOPRIL 10 MG TAB PO SCH (08:29)
[2018-05-14] MEDS: metFORMIN 500 MG TAB PO SCH ×2 (08:29→21:32)
[2018-05-14] MEDS: ALLOPURINOL 300 MG TAB PO SCH (08:29)
[2018-05-14] MEDS: glipiZIDE 10 MG TAB PO SCH ×2 (08:30→18:05)
[2018-05-14] MEDS: PANTOPRAZOLE 40 MG TABLET PO SCH (08:30)
[2018-05-14] MEDS: VANCOMYCIN 2,250 MG in SODIUM CHLORIDE 0.9% 500 ML 500 ML IVPB SCH (08:34)
[2018-05-14] MEDS: ACYCLOVIR 200 MG CAP PO SCH ×2 (08:38→21:32)
[2018-05-14 09:46] LABS: HGB 7.9 gm/dL (11.4-16.0); MCH 31.9 pg (25.0-35.0); MCHC 32.7 g/dL (31.0-37.0); MCV 97.6 fL (80.0-100.0); Mean Platelet Volume 8.5; RBC 2.46 m/uL (3.80-5.40); RDW 15.5 % (11.5-15.5)
[2018-05-14 09:50] LABS: WBC 0.3 k/uL (3.8-10.6)
[2018-05-14 09:51] LABS: Platelet Count 46 k/uL (150-450)
[2018-05-14 10:39] LABS: Anion Gap 9 mmol/L; Blood Urea Nitrogen 15 mg/dL (7-17); Calcium 9.4 mg/dL (8.4-10.2); Carbon Dioxide 25 mmol/L (22-30); Chloride 99 mmol/L (98-107); Glucose 219 mg/dL (74-99); Potassium 4.3 mmol/L (3.5-5.1); Sodium 133 mmol/L (137-145)
[2018-05-14 10:45] LABS: Poikilocytosis (M) Present
--- NOTE | 2018-05-14 11:26 | P.PN ---
Subjective Progress Note Date: 05/14/18 The patient continues to obtain of persistent fatigue. She had a mild fever spike the same at 100.8. She denied any subjective fevers, or chills. No history of nausea or vomiting. No change in pattern of bowel habits. No unusual bleeding or bruising noted. Appetite is reasonable at this time Objective - Vital Signs Vital signs: Vital Signs Temp 99.5 F 05/14/18 05:00 Pulse 63 05/14/18 05:00 Resp 17 05/14/18 05:00 BP 107/55 05/14/18 05:00 Pulse Ox 98 05/14/18 05:00 Intake & Output 05/13/18 05/14/18 05/14/18 18:59 06:59 18:59 Intake Total 500 2020 Output Total 600 1400 Balance -100 2020 -1400 Weight 127 kg Intake: Intake, IV Titration 500 600 Amount Cefepime 2 gm In Sodium 100 Chloride 0.9% 50 ml @ 100 mls/hr IVPB Q8H [facility] Rx#: [id number] Vancomycin 2,250 mg In 500 500 Sodium Chloride 0.9% 500 ml 500 ml @ 167 mls/hr IVPB Q16H [facility] Rx#: [id number] Oral 1420 Output: Urine 600 1400 Uretheral (Carrizales) 1400 Other: Voiding Method Indwelling Catheter Indwelling Catheter Indwelling Catheter # Voids 1 - Constitutional General appearance: Present: no acute distress - EENT Eyes: Present: EOMI ENT: Present: hearing grossly normal, normal oropharynx - Respiratory Respiratory: bilateral: CTA - Cardiovascular Rhythm: regular Heart sounds: normal: S1, S2 - Gastrointestinal General gastrointestinal: Present: normal bowel sounds, soft - Integumentary Integumentary: Present: normal - Neurologic Neurologic: Present: CNII-XII intact - Musculoskeletal Musculoskeletal: Present: generalized weakness, strength equal bilaterally - Psychiatric Psychiatric: Present: A&O x's 3, appropriate affect - Labs CBC & Chem 7: 05/14/18 08:59 05/14/18 08:59 Labs: Abnormal Lab Results - Last 24 Hours (Table) 05/13/18 05/13/18 05/13/18 Range/Units 11:56 17:02 21:02 WBC (3.8-10.6) k/uL RBC (3.80-5.40) m/uL Hgb (11.4-16.0) gm/dL Hct (34.0-46.0) % Plt Count (150-450) k/uL Neutrophils # (1.3-7.7) k/uL Lymphocytes # (1.0-4.8) k/uL Sodium (137-145) mmol/L Glucose (74-99) mg/dL POC Glucose (mg/dL) 126 H 156 H 194 H (75-99) mg/dL 05/14/18 05/14/18 05/14/18 Range/Units 07:26 08:59 08:59 WBC 0.3 L* (3.8-10.6) k/uL RBC 2.46 L (3.80-5.40) m/uL Hgb 7.9 L (11.4-16.0) gm/dL Hct 24.0 L (34.0-46.0) % Plt Count 46 L (150-450) k/uL Neutrophils # 0.1 L* (1.3-7.7) k/uL Lymphocytes # 0.1 L (1.0-4.8) k/uL Sodium 133 L (137-145) mmol/L Glucose 219 H (74-99) mg/dL POC Glucose (mg/dL) 240 H (75-99) mg/dL Microbiology - Last 24 Hours (Table) 05/10/18 12:13 Blood Culture - Preliminary Blood No Growth after 72 hours 05/10/18 12:19 Blood Culture - Preliminary Blood No Growth after 72 hours Assessment and Plan (1) Febrile neutropenia Narrative/Plan: Neutropenia continues, beyond day 10 post Neulasta. The patient was therefore started on filgrastim yesterday. WBC is still low at 0.3 today. The patient had a mild fever of 100.8, but overall fever pattern is much improved. Continue antibiotics per ID. Current Visit: Yes Status: Acute Code(s): D70.9 - NEUTROPENIA, UNSPECIFIED; R50.81 - FEVER PRESENTING WITH CONDITIONS CLASSIFIED ELSEWHERE SNOMED Code(s) : 960578009 (2) Pancytopenia due to chemotherapy Narrative/Plan: Hemoglobin and platelets in the safe range. Continue to monitor and transfuse as needed. Continue filgrastim till WBC recovery occurs Current Visit: No Status: Acute Priority: High Code(s): D61.810 - ANTINEOPLASTIC CHEMOTHERAPY INDUCED PANCYTOPENIA SNOMED Code(s): 4889716 (3) Non-Hodgkin lymphoma Narrative/Plan: The patient will resume chemotherapy in the outpatient setting, after recovery from her acute condition. Given prolonged cytopenias despite growth factors , she will require dose adjustment Current Visit: Yes Status: Acute Code(s): C85.90 - NON-HODGKIN LYMPHOMA, UNSPECIFIED, UNSPECIFIED SITE SNOMED Code(s): 106102589
[2018-05-14 11:49] LABS: Glucose,Whole Blood 191 mg/dL (75-99)
[2018-05-14] MEDS: ACETAMINOPHEN TAB 325 MG TAB PO PRN ×2 (13:06→19:54)
[2018-05-14] MEDS: FILGRASTIM-SNDZ 480 MCG/0.8 ML SYRINGE SQ SCH (14:17)
[2018-05-14 16:32] LABS: Glucose,Whole Blood 182 mg/dL (75-99)
[2018-05-14 20:04] LABS: Glucose,Whole Blood 175 mg/dL (75-99)
--- NOTE | 2018-05-14 20:38 | PN ---
PROGRESS NOTE I am covering for Dr. Murrieta. DATE OF SERVICE: 05/14/2018 This 72-year-old woman who was admitted with febrile neutropenia, and E coli sepsis also had pancytopenia. The white count is improving slightly at 0.3 at this time. No chest pain. No palpitations. No fever. PHYSICAL EXAM: Alert and oriented times three. Pulse is 121, blood pressure 120/72, respiration 18, temperature 99.1, pulse ox 98% on room air. HEENT: Conjunctivae normal. Oral mucosa moist. Neck is no jugular venous distention. No carotid bruit. No lymph node enlargement. CARDIOVASCULAR: S1. S2 muffled. RESPIRATORY: Breath sounds diminished in the bases. No rhonchi. No crackles. ABDOMEN: Soft, nontender. No mass palpable. Legs no edema. No swelling. Central nervous system: No focal deficits. LABS: WBC 0.3, hemoglobin 7.9, sodium is 133. ASSESSMENT: 1. Febrile neutropenia with possibly E coli sepsis. 2. Pancytopenia. 3. Carcinoma of the ovary on chemotherapy. 4. Diabetes mellitus type 2. 5. History of skin cancer. 6. History of varicose veins. 7. History of urinary tract infection. 8. History of degenerative joint disease. 9. History of thrombocytopenia. 10.History of VRE. 11.History of MRSA. 12.History of depression. RECOMMENDATIONS AND DISCUSSION: Recommend to continue current medications and symptomatic treatment. Otherwise, at this time, I recommend continue the antibiotics. Repeat labs. Guarded prognosis because of multiple complex medical issues. Further recommendations to follow. MMODL / IJN: [id number] /
[2018-05-14] MEDS: AMITRIPTYLINE HCL 50 MG TAB PO SCH (21:32)
[2018-05-15] MEDS: VANCOMYCIN 2,250 MG in SODIUM CHLORIDE 0.9% 500 ML 500 ML IVPB SCH ×2 (00:24→16:07)
[2018-05-15] MEDS: CEFEPIME 2 GM in SODIUM CHLORIDE 0.9% 50 ML IVPB SCH ×3 (05:05→22:50)
[2018-05-15] MEDS: LEVOTHYROXINE 137 MCG TAB PO SCH (05:09)
[2018-05-15 07:38] LABS: Glucose,Whole Blood 166 mg/dL (75-99)
[2018-05-15] MEDS: ALLOPURINOL 300 MG TAB PO SCH (07:47)
[2018-05-15] MEDS: metFORMIN 500 MG TAB PO SCH ×2 (07:47→22:39)
[2018-05-15] MEDS: LISINOPRIL 10 MG TAB PO SCH (07:47)
[2018-05-15] MEDS: ACYCLOVIR 200 MG CAP PO SCH ×2 (07:47→22:55)
[2018-05-15] MEDS: FLUCONAZOLE 100 MG TAB PO SCH (07:48)
[2018-05-15] MEDS: PANTOPRAZOLE 40 MG TABLET PO SCH ×2 (07:48→16:07)
[2018-05-15] MEDS: glipiZIDE 10 MG TAB PO SCH ×2 (07:48→16:07)
[2018-05-15] MEDS: INSULIN ASPART 100 UNIT/ML 1 ML 10 ML VIAL SQ SCH ×4 (08:03→22:40)
[2018-05-15 08:17] LABS: HCT 24.4 % (34.0-46.0); HGB 8.2 gm/dL (11.4-16.0); MCH 32.3 pg (25.0-35.0); MCHC 33.6 g/dL (31.0-37.0); MCV 96.4 fL (80.0-100.0); Mean Platelet Volume 9.1; RBC 2.53 m/uL (3.80-5.40); RDW 15.2 % (11.5-15.5)
[2018-05-15 08:21] LABS: Platelet Count 68 k/uL (150-450); WBC 0.9 k/uL (3.8-10.6)
[2018-05-15 08:34] LABS: Anion Gap 9 mmol/L; Blood Urea Nitrogen 14 mg/dL (7-17); Calcium 9.4 mg/dL (8.4-10.2); Carbon Dioxide 27 mmol/L (22-30); Chloride 99 mmol/L (98-107); Glucose 154 mg/dL (74-99); Potassium 4.6 mmol/L (3.5-5.1); Sodium 135 mmol/L (137-145)
[2018-05-15 09:45] LABS: Poikilocytosis (M) Present
[2018-05-15 11:33] LABS: Glucose,Whole Blood 167 mg/dL (75-99)
--- NOTE | 2018-05-15 13:44 | XR ---
EXAMINATION TYPE: XR chest 1V portable DATE OF EXAM: 05/15/2018 HISTORY: Shortness of breath. COMPARISON: 05/09/2018 TECHNIQUE: Single view of the chest is submitted. FINDINGS: Demonstrated are scattered senescent parenchymal change. There is no evidence for focal infiltrate. The heart is stable. Hilar and mediastinal structures are within normal limits. Degenerative changes are seen of the dorsal spine. IMPRESSION: 1. Chronic changes without evidence for acute pulmonary disease.
[2018-05-15] MEDS: FILGRASTIM-SNDZ 480 MCG/0.8 ML SYRINGE SQ SCH (13:54)
[2018-05-15] MEDS ORDERED: VANCOMYCIN TROUGH DUE 1 EACH MISC MISCELLANE ONE (15:00)
[2018-05-15] MEDS: AMITRIPTYLINE HCL 50 MG TAB PO SCH (16:07)
[2018-05-15 17:12] LABS: Glucose,Whole Blood 208 mg/dL (75-99)
--- NOTE | 2018-05-15 17:54 | P.PN ---
Subjective Progress Note Date: 05/15/18 The patient is feeling slightly better. She did have subjective fevers and sweats last night, still feels quite fatigued. No obvious bleeding. No nausea/ vomiting/chills. Objective - Vital Signs Vital signs: Vital Signs Temp 98.3 F 05/15/18 04:47 Pulse 112 H 05/15/18 16:10 Resp 17 05/15/18 14:29 BP 113/66 05/15/18 12:14 Pulse Ox 95 05/15/18 12:14 Intake & Output 05/14/18 05/15/18 05/15/18 18:59 06:59 18:59 Intake Total 1410 160 Output Total 2700 800 2500 Balance -2700 610 -2340 Intake: Intake, IV Titration 750 Amount Cefepime 2 gm In Sodium 700 Chloride 0.9% 50 ml @ 100 mls/hr IVPB Q8H [facility] Rx#: [id number] Vancomycin 2,250 mg In 50 Sodium Chloride 0.9% 500 ml 500 ml @ 167 mls/hr IVPB Q16H [facility] Rx#: [id number] Oral 660 160 Output: Urine 2700 800 2500 Uretheral (Carrizales) 3317 300 8137 Other: Voiding Method Indwelling Catheter Indwelling Catheter Indwelling Catheter # Bowel Movements 1 1 - Constitutional General appearance: Present: no acute distress - EENT Eyes: Present: EOMI ENT: Present: hearing grossly normal, normal oropharynx - Respiratory Respiratory: bilateral: CTA - Cardiovascular Rhythm: regular Heart sounds: normal: S1, S2 - Gastrointestinal General gastrointestinal: Present: normal bowel sounds, soft - Integumentary Integumentary: Present: normal - Neurologic Neurologic: Present: CNII-XII intact - Musculoskeletal Musculoskeletal: Present: generalized weakness, strength equal bilaterally - Psychiatric Psychiatric: Present: A&O x's 3, appropriate affect - Labs CBC & Chem 7: 05/15/18 07:43 05/15/18 07:43 Labs: Abnormal Lab Results - Last 24 Hours (Table) 05/14/18 05/15/18 05/15/18 Range/Units 20:03 07:36 07:43 WBC 0.9 L* (3.8-10.6) k/uL RBC 2.53 L (3.80-5.40) m/uL Hgb 8.2 L (11.4-16.0) gm/dL Hct 24.4 L (34.0-46.0) % Plt Count 68 L (150-450) k/uL Sodium (137-145) mmol/L Glucose (74-99) mg/dL POC Glucose (mg/dL) 175 H 166 H (75-99) mg/dL 05/15/18 05/15/18 05/15/18 Range/Units 07:43 11:32 17:10 WBC (3.8-10.6) k/uL RBC (3.80-5.40) m/uL Hgb (11.4-16.0) gm/dL Hct (34.0-46.0) % Plt Count (150-450) k/uL Sodium 135 L (137-145) mmol/L Glucose 154 H (74-99) mg/dL POC Glucose (mg/dL) 167 H 208 H (75-99) mg/dL Microbiology - Last 24 Hours (Table) 05/10/18 12:13 Blood Culture - Preliminary Blood No Growth after 120 hours 05/10/18 12:19 Blood Culture - Preliminary Blood No Growth after 120 hours Assessment and Plan (1) Febrile neutropenia Narrative/Plan: The patient reported some subjective fevers and sweats last night, but there is no documentation of overt fever in the chart. White count is increased today and is starting to show recovery. Therefore a symptoms most likely represent cytokine reaction from her white cell started to recover. Continue G-CSF, total WBC is in a safe range. Continue antibiotics per ID. Repeat blood cultures have been negative Current Visit: Yes Status: Acute Code(s): D70.9 - NEUTROPENIA, UNSPECIFIED; R50.81 - FEVER PRESENTING WITH CONDITIONS CLASSIFIED ELSEWHERE SNOMED Code(s) : 046368895 (2) Pancytopenia due to chemotherapy Narrative/Plan: Hemoglobin and platelets continue to be in a safe range. Continue to monitor Current Visit: No Status: Acute Priority: High Code(s): D61.810 - ANTINEOPLASTIC CHEMOTHERAPY INDUCED PANCYTOPENIA SNOMED Code(s): 6143884 (3) Non-Hodgkin lymphoma Narrative/Plan: Due to her current presentation, the patient will require dose modification with her next chemotherapy. Current Visit: Yes Status: Acute Code(s): C85.90 - NON-HODGKIN LYMPHOMA, UNSPECIFIED, UNSPECIFIED SITE SNOMED Code(s): 338348082
[2018-05-15] MEDS: ALBUTEROL NEBULIZED 2.5 MG/3 ML INHALATION SCH (20:33)
[2018-05-15 21:10] LABS: Glucose,Whole Blood 206 mg/dL (75-99)
--- NOTE | 2018-05-15 22:54 | PN ---
PROGRESS NOTE DATE OF SERVICE: 05/15/2018 I am covering for Dr. Murrieta. This 72-year-old woman is admitted with febrile neutropenia, also had E coli sepsis. Patient on broad spectrum IV antibiotics. Most recent cultures are negative. The patient complains of shortness of breath. A chest x-ray was ordered yesterday which was reviewed personally by me, showed chronic changes without any acute changes. The patient is being closely monitored. Dr. Garrett is also following the patient closely. The white count is 0.9, which is still in the leukopenic range. PAST MEDICAL HISTORY: Reviewed. MEDICATIONS: Current medications are reviewed and include: 1. Tylenol 650 q.6h p.r.n. 2. Zovirax 400 mg p.o. b.i.d. 3. Zyloprim 3 mg daily. 4. Elavil 100 mg . 5. Cefepime 2 g IV q.8 hours. 6. Zarxio 480 mcg daily. 7. Diflucan 100 mg daily. 8. Glucotrol 10 mg b.i.d. 9. NovoLog scale. 10.Synthroid 137 mg p.o. 11.Zestril 10 mg. 12.Milk of magnesia. 13.Glucophage. 14.Narcan 0.2 q.2h p.r.n. 15.Protonix 40 mg b.i.d. 16.Compazine. 17.Vancomycin 2.25 IV q.6h. PHYSICAL EXAM: Patient is alert, oriented x3. Pulse is 122, blood pressure 130/66, respiration 17, temperature normal, pulse ox 94% on room air. HEENT: Conjunctivae normal. NECK: No jugular venous distention. Cardiac: S1, S2 muffled. Respirations: Breath sounds diminished at the bases. A few scattered rhonchi and crackles. Abdomen is soft, nontender. No mass palpable. Legs no edema. No swelling. Nervous system: No focal deficits. LABS: WBC 0.9, hemoglobin is 8.2, sodium 135. ASSESSMENT: 1. Febrile neutropenia with possibly E. coli sepsis. 2. Pancytopenia. 3. Carcinoma of the ovary on chemotherapy. 4. Diabetes mellitus type 2. 5. Shortness of breath. 6. History of skin cancer. 7. History of varicose veins. 8. History of urinary tract infection. 9. History of degenerative joint disease. 10.History of thrombocytopenia. 11.History of VRE. 12.History of MRSA. 13.History of depression. RECOMMENDATIONS AND DISCUSSION: Recommend to continue current medication, continue symptomatic treatment. Otherwise at this time, currently the patient is empirically on antibiotics. We will continue to monitor. I would also recommend some empiric albuterol also and continue to monitor. Further recommendations to follow. Dr. Murrieta will follow. Otherwise continue to monitor. MMCYL / IJN: [id number] / ELISEO
[2018-05-16] MEDS: LEVOTHYROXINE 137 MCG TAB PO SCH (05:32)
[2018-05-16] MEDS: CEFEPIME 2 GM in SODIUM CHLORIDE 0.9% 50 ML IVPB SCH ×3 (05:32→20:47)
[2018-05-16 07:13] LABS: Glucose,Whole Blood 159 mg/dL (75-99)
[2018-05-16] MEDS: ALBUTEROL NEBULIZED 2.5 MG/3 ML INHALATION SCH ×3 (07:32→19:30)
[2018-05-16 07:39] LABS: Anion Gap 4 mmol/L; Blood Urea Nitrogen 13 mg/dL (7-17); Calcium 9.3 mg/dL (8.4-10.2); Carbon Dioxide 29 mmol/L (22-30); Chloride 102 mmol/L (98-107); Glucose 152 mg/dL (74-99); Potassium 4.9 mmol/L (3.5-5.1); Sodium 135 mmol/L (137-145)
--- NOTE | 2018-05-16 08:38 | P.PN ---
Subjective Principal diagnosis: Febrile neutropenia. Febrile neutropenia. She denied IV antibiotics for the last week. Appreciate multiple inputs from an infectious disease and oncology. The patient is clinically much improved and feels much better outside of some mild constipation. CBC is pending for this a.m. per Objective - Vital Signs Vital signs: Vital Signs Temp 98.6 F 05/16/18 05:00 Pulse 124 H 05/16/18 07:43 Resp 16 05/16/18 05:00 BP 130/61 05/16/18 05:00 Pulse Ox 97 05/16/18 05:00 Intake & Output 05/15/18 05/16/18 05/16/18 18:59 06:59 18:59 Intake Total 160 200 Output Total 2500 800 Balance -2340 -600 Intake: Intake, IV Titration 100 Amount Cefepime 2 gm In Sodium 100 Chloride 0.9% 50 ml @ 100 mls/hr IVPB Q8H [facility] Rx#: [id number] Oral 160 100 Output: Urine 2500 800 Uretheral (Carrizales) 1600 800 Other: Voiding Method Indwelling Catheter Indwelling Catheter # Bowel Movements 1 - Constitutional General appearance: Present: average body habitus - EENT Eyes: Absent: abnormal pupil - Neck Neck: Absent: lymphadenopathy - Respiratory Respiratory: bilateral: CTA - Cardiovascular Rhythm: regular Heart sounds: normal: S1, S2 Abnormal Heart Sounds: Absent: S3 Gallop - Gastrointestinal General gastrointestinal: Present: soft. Absent: tenderness - Neurologic Neurologic: Present: CNII-XII intact. Absent: focal deficits - Labs CBC & Chem 7: 05/15/18 07:43 05/16/18 07:04 Labs: Abnormal Lab Results - Last 24 Hours (Table) 05/15/18 05/15/18 05/15/18 Range/Units 11:32 17:10 20:28 Sodium (137-145) mmol/L Glucose (74-99) mg/dL POC Glucose (mg/dL) 167 H 208 H 206 H (75-99) mg/dL 05/16/18 05/16/18 Range/Units 07:04 07:10 Sodium 135 L (137-145) mmol/L Glucose 152 H (74-99) mg/dL POC Glucose (mg/dL) 159 H (75-99) mg/dL Microbiology - Last 24 Hours (Table) 05/10/18 12:13 Blood Culture - Preliminary Blood No Growth after 120 hours 05/10/18 12:19 Blood Culture - Preliminary Blood No Growth after 120 hours Assessment and Plan (1) Febrile neutropenia Current Visit: Yes Status: Acute Code(s): D70.9 - NEUTROPENIA, UNSPECIFIED; R50.81 - FEVER PRESENTING WITH CONDITIONS CLASSIFIED ELSEWHERE SNOMED Code(s) : 479733370 (2) Debilitated patient Current Visit: No Status: Acute Priority: High Code(s): R53.81 - OTHER MALAISE SNOMED Code(s): 59684488 (3) Diabetes Current Visit: No Status: Acute Code(s): E11.9 - TYPE 2 DIABETES MELLITUS WITHOUT COMPLICATIONS SNOMED Code(s): 11920939 (4) High risk for readmission Current Visit: No Status: Acute Code(s): Z91.89 - OTH PERSONAL RISK FACTORS , NOT ELSEWHERE CLASSIFIED SNOMED Code(s): 306058585 (5) Pancytopenia due to chemotherapy Current Visit: No Status: Acute Priority: High Code(s): D61.810 - ANTINEOPLASTIC CHEMOTHERAPY INDUCED PANCYTOPENIA SNOMED Code(s): 7320531 (6) Hypertension Current Visit: No Status: Chronic Code(s): I10 - ESSENTIAL (PRIMARY) HYPERTENSION SNOMED Code(s): 67837049 (7) Hypothyroid Current Visit: No Status: Chronic Code(s): E03.9 - HYPOTHYROIDISM, UNSPECIFIED SNOMED Code(s): 90393172 Plan: Continue current regimen of treatment. Check CBC in AM Anticipate discharge in next 24-40 hours and once cleared by consultants.
[2018-05-16] MEDS: PANTOPRAZOLE 40 MG TABLET PO SCH ×2 (08:48→17:55)
[2018-05-16] MEDS: ACYCLOVIR 200 MG CAP PO SCH ×2 (08:48→20:46)
[2018-05-16] MEDS: VANCOMYCIN 2,250 MG in SODIUM CHLORIDE 0.9% 500 ML 500 ML IVPB SCH ×2 (08:48→23:10)
[2018-05-16] MEDS: metFORMIN 500 MG TAB PO SCH ×2 (08:49→20:47)
[2018-05-16] MEDS: glipiZIDE 10 MG TAB PO SCH ×2 (08:49→17:55)
[2018-05-16] MEDS: LISINOPRIL 10 MG TAB PO SCH (08:50)
[2018-05-16] MEDS: ALLOPURINOL 300 MG TAB PO SCH (08:50)
[2018-05-16] MEDS: FLUCONAZOLE 100 MG TAB PO SCH (08:50)
[2018-05-16] MEDS: INSULIN ASPART 100 UNIT/ML 1 ML 10 ML VIAL SQ SCH ×4 (08:51→20:51)
[2018-05-16 09:13] LABS: HCT 24.2 % (34.0-46.0); MCH 31.9 pg (25.0-35.0); MCV 96.6 fL (80.0-100.0); Mean Platelet Volume 8.9; RDW 15.5 % (11.5-15.5); WBC 2.4 k/uL (3.8-10.6)
[2018-05-16 09:20] LABS: Platelet Count 91 k/uL (150-450)
[2018-05-16 11:15] LABS: Glucose,Whole Blood 168 mg/dL (75-99)
[2018-05-16 11:26] LABS: Band Neutrophils % 15 %; Lymphocytes # (M) 0.38 k/uL (1.0-4.8); Metamyelocytes # (M) 0.05 k/uL (0); Metamyelocytes % 2 %; Monocytes # (M) 0.38 k/uL (0-1.0); Myelocytes # (M) 0.19 k/uL (0); Myelocytes % 8 %; Neutrophils % (M) 42 %
[2018-05-16 11:29] LABS: Anisocytosis (M) Present; Blast Cells # (M) 0.02 k/uL (0); Nucleated Red Blood Cells 1 /100 WBC (0-0); Tear Drop Cells Present; Total Cells Counted 100
[2018-05-16 11:30] LABS: Poikilocytosis (M) Present
[2018-05-16 11:31] LABS: Toxic Granulation Present
[2018-05-16 17:16] LABS: Glucose,Whole Blood 206 mg/dL (75-99)
--- NOTE | 2018-05-16 17:40 | P.PN ---
Subjective Progress Note Date: 05/16/18 Principal diagnosis: Bacteremia, sepsis Afebrile, feeling better Objective - Vital Signs Vital signs: Vital Signs Temp 98.6 F 05/16/18 05:00 Pulse 120 H 05/16/18 13:47 Resp 20 05/16/18 12:42 BP 117/65 05/16/18 12:42 Pulse Ox 97 05/16/18 12:42 Intake & Output 05/15/18 05/16/18 05/16/18 18:59 06:59 18:59 Intake Total 160 200 600 Output Total 2500 800 1000 Balance -2340 -600 -400 Weight 127 kg Intake: Intake, IV Titration 100 600 Amount Cefepime 2 gm In Sodium 100 100 Chloride 0.9% 50 ml @ 100 mls/hr IVPB Q8H [facility] Rx#: [id number] Vancomycin 2,250 mg In 500 Sodium Chloride 0.9% 500 ml 500 ml @ 167 mls/hr IVPB Q16H [facility] Rx#: [id number] Oral 160 100 Output: Urine 2500 800 1000 Uretheral (Carrizales) 1600 800 Other: Voiding Method Indwelling Catheter Indwelling Catheter Indwelling Catheter # Bowel Movements 1 - Exam General Impression: Alert and oriented x3, mild distress HEENT: NT, NC e mucous membranes moist. Cardiovascular: Tachycardic Chest: Lungs clear to auscultation bilaterally, no rhonchi, no wheeze, no rales Abdomen: Bowel sounds present, abdomen soft, non-tender, non-distended, no organomegaly Musculoskeletal: Pulses present and equal in all extremities, no peripheral edema Motor: Power 5/5 bilaterally, no focal deficits noted Neurological: overall weakness and in constant moving Skin: Intact with no visualized rashes Psych: Normal affect and mood - Labs CBC & Chem 7: 05/16/18 07:04 05/16/18 07:04 Labs: Abnormal Lab Results - Last 24 Hours (Table) 05/15/18 05/16/18 05/16/18 Range/Units 20:28 07:04 07:04 WBC 2.4 L (3.8-10.6) k/uL RBC 2.50 L (3.80-5.40) m/uL Hgb 8.0 L (11.4-16.0) gm/dL Hct 24.2 L (34.0-46.0) % Plt Count 91 L (150-450) k/uL Blast Cells % 1 H* % Lymphocytes # (Manual) 0.38 L (1.0-4.8) k/uL Metamyelocytes # (Man) 0.05 H (0) k/uL Myelocytes # (Manual) 0.19 H (0) k/uL Blast Cells # (Man) 0.02 H (0) k/uL Nucleated RBCs 1 H (0-0) /100 WBC Sodium 135 L (137-145) mmol/L Glucose 152 H (74-99) mg/dL POC Glucose (mg/dL) 206 H (75-99) mg/dL 05/16/18 05/16/18 05/16/18 Range/Units 07:10 11:13 17:14 WBC (3.8-10.6) k/uL RBC (3.80-5.40) m/uL Hgb (11.4-16.0) gm/dL Hct (34.0-46.0) % Plt Count (150-450) k/uL Blast Cells % % Lymphocytes # (Manual) (1.0-4.8) k/uL Metamyelocytes # (Man) (0) k/uL Myelocytes # (Manual) (0) k/uL Blast Cells # (Man) (0) k/uL Nucleated RBCs (0-0) /100 WBC Sodium (137-145) mmol/L Glucose (74-99) mg/dL POC Glucose (mg/dL) 159 H 168 H 206 H (75-99) mg/dL Microbiology - Last 24 Hours (Table) 05/10/18 12:13 Blood Culture - Final Blood No Growth after 144 hours 05/10/18 12:19 Blood Culture - Final Blood No Growth after 144 hours Assessment and Plan Plan: Assessment and Recommendations: 1. Large B Cell Lymphoma: Status Post Cycle One: - Chemotherapy on 05/03/18 with Rituxan, Cytoxan, Doxil, Prednisone, and Neulasta - Follow-up with Dr. Garrett as outpatient regarding resuming chemotherapy after acute illness resolves 2. Febrile Neutropenia: Improved - Dr. Blevins from Infectious Disease Following and to provide discharge recs 3. Pancytopenia - Secondary to Chemotherapy and diffuse Bone Marrow disease from many line of chemotherapy - Monitor for s/s bleeding - Transfuse Platlets less than 15 - in a febrile neutropenic patient - All Irradiated Blood Products - Transfuse Hemoglobin less than 7, no intervention needed from CBC yesterday - Await CBC today - CBC Daily with differential 4. Recurrent Falls, Uncordinated Movements, Word Searching, Inability to Concentrate: - MRI of Brain Reviewed. - Likely secondary to sepsis 5. Persistent Tachycardia: Probable Reactive to above, monitor. 6. HX: ALL - Status Post Chemo 7. Hx: Ovarian Cancer with Surgical Hysterectomy and Chemotherapy Ok to discharge and follow-up as outpatient per onc Jody Ponce NP
[2018-05-16] MEDS: FILGRASTIM-SNDZ 480 MCG/0.8 ML SYRINGE SQ SCH (17:55)
[2018-05-16 20:03] LABS: Glucose,Whole Blood 191 mg/dL (75-99)
[2018-05-16] MEDS: AMITRIPTYLINE HCL 50 MG TAB PO SCH (20:45)
--- NOTE | 2018-05-16 22:50 | P.PN ---
Subjective Progress Note Date: 05/16/18 72-year-old female who has a very extensive past medical history starting with breast carcinoma that was successfully treated. 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 Recently however was feeling poorly with increasing fatigue and malaise without evidence of lymphoma has not been receiving chemotherapy for her hematological malignancy. At home she was feeling poorly started to have falls having increasing difficulties with her daily activities. She was seen at the oncologist office and with her profound fatigue and malaise and neutropenia she was at needed to hospital. She's also noticed to have a fever and with this the infectious diseases consultation was requested. She relates since admission and receiving fluids antibiotic therapy she is starting to feel slightly better. 05/16/2018 patient is now feeling considerably better. Her fevers have resolved. She's having no nausea or emesis. She eating relatively well. Denies intermittent difficulties. Objective - Vital Signs Vital signs: Vital Signs Temp 98.9 F 05/16/18 20:45 Pulse 123 H 05/16/18 20:45 Resp 16 05/16/18 20:45 BP 125/74 05/16/18 20:45 Pulse Ox 94 L 05/16/18 20:45 Intake & Output 05/16/18 05/16/18 05/17/18 06:59 18:59 06:59 Intake Total 200 600 Output Total 800 2100 Balance -600 -1500 Weight 127 kg Intake: Intake, IV Titration 100 600 Amount Cefepime 2 gm In Sodium 100 100 Chloride 0.9% 50 ml @ 100 mls/hr IVPB Q8H [facility] Rx#: [id number] Vancomycin 2,250 mg In 500 Sodium Chloride 0.9% 500 ml 500 ml @ 167 mls/hr IVPB Q16H [facility] Rx#: [id number] Oral 100 Output: Urine 800 2100 Uretheral (Carrizales) 800 800 Other: Voiding Method Indwelling Catheter Indwelling Catheter - Exam Pleasant obese 72-year-old woman quite comfortable at this time HEENT: Anicteric conjunctiva are pink and moist nasal mucosa grossly intact without significant lesions, there is no thrush. Neck: The neck is supple without significant lymphadenopathy or thyromegaly. Lungs: Good bilateral air entry without significant crackles or wheezing. There is no significant bronchial sounds. There is no egophony or dullness. Heart: Regular rate and rhythm with an audible S1-S2, no S3 no S4. There is no significant murmur click or rub, PMI was nondisplaced. Abdomen: Positive bowel sounds soft and nontender without palpable masses or organomegaly. There was no guarding or rebound. Extremities: The upper extremities have excellent pulses they are symmetric, no significant petechiae or telangiectasia. No splinter hemorrhages were noted. Lower extremities have some diffuse edema but no significant open ulcerations are seen Neuro: Awake alert oriented to person place and time. There are no acute new gross focal sensory motor deficits. - Labs CBC & Chem 7: 05/16/18 07:04 05/16/18 07:04 Labs: Abnormal Lab Results - Last 24 Hours (Table) 05/16/18 05/16/18 05/16/18 Range/Units 07:04 07:04 07:10 WBC 2.4 L (3.8-10.6) k/uL RBC 2.50 L (3.80-5.40) m/uL Hgb 8.0 L (11.4-16.0) gm/dL Hct 24.2 L (34.0-46.0) % Plt Count 91 L (150-450) k/uL Blast Cells % 1 H* % Lymphocytes # (Manual) 0.38 L (1.0-4.8) k/uL Metamyelocytes # (Man) 0.05 H (0) k/uL Myelocytes # (Manual) 0.19 H (0) k/uL Blast Cells # (Man) 0.02 H (0) k/uL Nucleated RBCs 1 H (0-0) /100 WBC Sodium 135 L (137-145) mmol/L Glucose 152 H (74-99) mg/dL POC Glucose (mg/dL) 159 H (75-99) mg/dL 05/16/18 05/16/18 05/16/18 Range/Units 11:13 17:14 20:00 WBC (3.8-10.6) k/uL RBC (3.80-5.40) m/uL Hgb (11.4-16.0) gm/dL Hct (34.0-46.0) % Plt Count (150-450) k/uL Blast Cells % % Lymphocytes # (Manual) (1.0-4.8) k/uL Metamyelocytes # (Man) (0) k/uL Myelocytes # (Manual) (0) k/uL Blast Cells # (Man) (0) k/uL Nucleated RBCs (0-0) /100 WBC Sodium (137-145) mmol/L Glucose (74-99) mg/dL POC Glucose (mg/dL) 168 H 206 H 191 H (75-99) mg/dL Microbiology - Last 24 Hours (Table) 05/10/18 12:13 Blood Culture - Final Blood No Growth after 144 hours 05/10/18 12:19 Blood Culture - Final Blood No Growth after 144 hours Laboratory Results WBC 2.4 k/uL (3.8-10.6) L 05/16/18 07:04 RBC 2.50 m/uL (3.80-5.40) L 05/16/18 07:04 Hgb 8.0 gm/dL (11.4-16.0) L 05/16/18 07:04 Hct 24.2 % (34.0-46.0) L 05/16/18 07:04 MCV 96.6 fL (80.0-100.0) 05/16/18 07:04 MCH 31.9 pg (25.0-35.0) 05/16/18 07:04 MCHC 33.0 g/dL (31.0-37.0) 05/16/18 07:04 RDW 15.5 % (11.5-15.5) 05/16/18 07:04 Plt Count 91 k/uL (150-450) L 05/16/18 07:04 Neutrophils % DISPATCHER RELAY 05/14/18 08:59 Neutrophils % (Manual) 42 % 05/16/18 07:04 Band Neutrophils % 15 % 05/16/18 07:04 Lymphocytes % DISPATCHER RELAY 05/14/18 08:59 Lymphocytes % (Manual) 16 % 05/16/18 07:04 Monocytes % DISPATCHER RELAY 05/14/18 08:59 Monocytes % (Manual) 16 % 05/16/18 07:04 Eosinophils % DISPATCHER RELAY 05/14/18 08:59 Basophils % DISPATCHER RELAY 05/14/18 08:59 Metamyelocytes % 2 % 05/16/18 07:04 Myelocytes % 8 % 05/16/18 07:04 Blast Cells % 1 % H* 05/16/18 07:04 Neutrophils # DISPATCHER RELAY 05/14/18 08:59 Neutrophils # (Manual) 1.30 k/uL (1.3-7.7) 05/16/18 07:04 Lymphocytes # DISPATCHER RELAY 05/14/18 08:59 Lymphocytes # (Manual) 0.38 k/uL (1.0-4.8) L 05/16/18 07:04 Monocytes # DISPATCHER RELAY 05/14/18 08:59 Monocytes # (Manual) 0.38 k/uL (0-1.0) 05/16/18 07:04 Eosinophils # DISPATCHER RELAY 05/14/18 08:59 Basophils # DISPATCHER RELAY 05/14/18 08:59 Metamyelocytes # (Man) 0.05 k/uL (0) H 05/16/18 07:04 Myelocytes # (Manual) 0.19 k/uL (0) H 05/16/18 07:04 Blast Cells # (Man) 0.02 k/uL (0) H 05/16/18 07:04 Nucleated RBCs 1 /100 WBC (0-0) H 05/16/18 07:04 Differential Comment 05/15/18 07:43 Manual Slide Review Performed 05/16/18 07:04 Toxic Granulation Present 05/16/18 07:04 Poikilocytosis (manual Present 05/16/18 07:04 Anisocytosis (manual) Present 05/16/18 07:04 Macrocytosis Slight 05/13/18 07:41 Tear Drop Cells Present 05/16/18 07:04 PT 9.9 sec (9.0-12.0) 05/09/18 17:30 INR 1.0 (<1.2) 05/09/18 17:30 APTT 21.8 sec (22.0-30.0) L 05/09/18 17:30 Sodium 135 mmol/L (137-145) L 05/16/18 07:04 Potassium 4.9 mmol/L (3.5-5.1) 05/16/18 07:04 Chloride 102 mmol/L (98-107) 05/16/18 07:04 Carbon Dioxide 29 mmol/L (22-30) 05/16/18 07:04 Anion Gap 4 mmol/L 05/16/18 07:04 BUN 13 mg/dL (7-17) 05/16/18 07:04 Creatinine 0.76 mg/dL (0.52-1.04) 05/16/18 07:04 Est GFR (CKD-EPI)AfAm >90 (>60 ml/min/1.73 sqM) 05/16/18 07:04 Est GFR (CKD-EPI)NonAf 79 (>60 ml/min/1.73 sqM) 05/16/18 07:04 Glucose 152 mg/dL (74-99) H 05/16/18 07:04 POC Glucose (mg/dL) 191 mg/dL (75-99) H 05/16/18 20:00 POC Glu Manager Online ID 05/16/18 20:[address] Glu mg/dL 154 05/10/18 08:31 Hemoglobin A1c 7.0 % (4.0-6.0) H 05/10/18 08:31 Lactic Ac Sepsis Rflx Y 05/09/18 17:54 Plasma Lactic Acid Minh 1.8 mmol/L (0.7-2.0) 05/12/18 21:49 Uric Acid 3.7 mg/dL (3.7-7.4) 05/09/18 17:30 Calcium 9.3 mg/dL (8.4-10.2) 05/16/18 07:04 Ionized Calcium Lilina 5.0 mg/dL (4.5-5.3) 05/09/18 17:30 Phosphorus 2.9 mg/dL (2.5-4.5) 05/09/18 17:30 Magnesium 1.6 mg/dL (1.6-2.3) 05/09/18 17:30 Total Bilirubin 0.4 mg/dL (0.2-1.3) 05/11/18 05:49 AST 15 U/L (14-36) 05/11/18 05:49 ALT 26 U/L (9-52) 05/11/18 05:49 Alkaline Phosphatase 52 U/L (38-126) 05/11/18 05:49 Lactate Dehydrogenase 280 U/L (313-618) L 05/10/18 12:13 Total Creatine Kinase <20 U/L (30-135) L 05/09/18 17:30 CK-MB (CK-2) 0.2 ng/mL (0.0-2.4) 05/09/18 17:30 CK-MB (CK-2) Rel Index 05/09/18 17:30 Troponin I <0.012 ng/mL (0.000-0.034) 05/09/18 17:30 Total Protein 5.2 g/dL (6.3-8.2) L 05/11/18 05:49 Albumin 2.8 g/dL (3.5-5.0) L 05/11/18 05:49 Urine Color Light Yellow 05/09/18 21:45 Urine Appearance Clear (Clear) 05/09/18 21:45 Urine pH 5.0 (5.0-8.0) 05/09/18 21:45 Ur Specific [place] 1.010 (1.001-1.035) 05/09/18 21:45 Urine Protein Negative (Negative) 05/09/18 21:45 Urine Glucose (UA) 3+ (Negative) H 05/09/18 21:45 Urine Ketones Negative (Negative) 05/09/18 21:45 Urine Blood Negative (Negative) 05/09/18 21:45 Urine Nitrite Negative (Negative) 05/09/18 21:45 Urine Bilirubin Negative (Negative) 05/09/18 21:45 Urine Urobilinogen <2.0 mg/dL (<2.0) 05/09/18 21:45 Ur Leukocyte Esterase Negative (Negative) 05/09/18 21:45 Vancomycin Trough 14.9 ug/mL 05/15/18 15:10 Microbiology 05/10/18 12:13 Blood Blood Culture - Final No Growth after 144 hours 05/10/18 12:19 Blood Blood Culture - Final No Growth after 144 hours 05/09/18 17:30 Blood Blood Culture Gram Stain - Final 05/09/18 17:30 Blood Blood Culture - Final Escherichia coli 05/09/18 17:30 Blood Blood Culture - Final Assessment and Plan (1) Febrile neutropenia Narrative/Plan: 78-year-old woman presents to Hospital feeling poorly with evidence of fever chills generalized malaise increasing weakness and was seen by her oncologist and directed to hospital. There is evidence of febrile neutropenia and evidence of a positive blood culture for which the infectious diseases consultation is requested. The patient will be treated with cefepime, she did have some nausea related to Cefdinir which is an oral medication down she'll have this difficulty with cefepime and it is ordered. Follow blood cultures have been requested. She. He received Neulasta in the outpatient setting with her most recent chemotherapy. Oncology is following and will determine when her next growth factor can be given. Temperature 102.4 is improving with hydration fluids and antibiotic therapy. Because of her prior extensive treatment she is having difficulty with her bone marrow recovery. 05/16/2018 reveals the patient be feeling better. Fevers are resolved. Energy level is improved. Eating and drinking well. Blood culture revealed evidence of E. coli that is quiroga susceptible. Fortunately. Able to tolerate Levaquin orally at home and is [facility] pharmacy for the next 2 weeks of treatment. It appears the patient's plan will be to complete a course of antibiotic therapy work with her oncologist and then try to get to [place] where after resolution of her sepsis she will then be able to have a plan for the next course of intervention about her AML. Current Visit: Yes Status: Acute Code(s): D70.9 - NEUTROPENIA, UNSPECIFIED; R50.81 - FEVER PRESENTING WITH CONDITIONS CLASSIFIED ELSEWHERE SNOMED Code(s) : 070368732 (2) Anemia Current Visit: No Status: Acute Code(s): D64.9 - ANEMIA, UNSPECIFIED SNOMED Code(s): 045739957 (3) Pancytopenia due to chemotherapy Current Visit: No Status: Acute Priority: High Code(s): D61.810 - ANTINEOPLASTIC CHEMOTHERAPY INDUCED PANCYTOPENIA SNOMED Code(s): 8071321
[2018-05-17] MEDS: CEFEPIME 2 GM in SODIUM CHLORIDE 0.9% 50 ML IVPB SCH (05:20)
[2018-05-17] MEDS: LEVOTHYROXINE 137 MCG TAB PO SCH (05:56)
[2018-05-17 06:56] LABS: Glucose,Whole Blood 193 mg/dL (75-99)
[2018-05-17] MEDS: ALBUTEROL NEBULIZED 2.5 MG/3 ML INHALATION SCH ×2 (07:55→12:43)
[2018-05-17] MEDS: glipiZIDE 10 MG TAB PO SCH (07:59)
[2018-05-17] MEDS: PANTOPRAZOLE 40 MG TABLET PO SCH (07:59)
[2018-05-17] MEDS: ALLOPURINOL 300 MG TAB PO SCH (08:00)
[2018-05-17] MEDS: ACYCLOVIR 200 MG CAP PO SCH (08:00)
[2018-05-17] MEDS: FLUCONAZOLE 100 MG TAB PO SCH (08:00)
[2018-05-17] MEDS: metFORMIN 500 MG TAB PO SCH (08:01)
[2018-05-17] MEDS: INSULIN ASPART 100 UNIT/ML 1 ML 10 ML VIAL SQ SCH ×2 (08:04→13:17)
[2018-05-17 08:18] LABS: Calcium 9.5 mg/dL (8.4-10.2); Potassium 4.8 mmol/L (3.5-5.1)
[2018-05-17] MEDS: LISINOPRIL 10 MG TAB PO SCH (10:51)
[2018-05-17 11:33] LABS: Glucose,Whole Blood 190 mg/dL (75-99)
[2018-05-17 11:41] VITALS: BP 109/51; PULSE 115; RESP 16; TEMP 98.7
--- NOTE | 2018-05-17 13:10 | P.DS ---
Providers Date of admission: 05/09/18 20:24 Attending physician: Jersey Murrieta Consults: 05/09/18 20:29 Consult Physician Routine Consulting Provider: Patrice Garrett Consult Reason/Comments: pancytopenia, r/o febrile neutropenia Do you want consulting provider notified?: Yes 05/10/18 11:06 Consult Physician Routine Consulting Provider: Dominick Blevins Reason/Comments: febrile Neutropenia on Chemo Do you want consulting provider notified?: Yes Primary care physician: Jersey Murrieta - Discharge Diagnosis(es) (1) Febrile neutropenia Current Visit: Yes Status: Acute (2) Debilitated patient Current Visit: No Status: Acute Priority: High (3) Diabetes Current Visit: No Status: Acute (4) High risk for readmission Current Visit: No Status: Acute (5) Pancytopenia due to chemotherapy Current Visit: No Status: Acute Priority: High (6) Hypertension Current Visit: No Status: Chronic (7) Hypothyroid Current Visit: No Status: Chronic Hospital Course: This is a discharge summary 70-year-old white female essentially admitted for febrile neutropenia related to treatment of lymphoma/ischemia. The patient has unfortunately, multiple cancer history. She was stabilized with appropriate evaluation from infectious disease and oncology. The patient's is still relatively neutropenic but stable. She's been cleared for discharge from multiple consultants and will follow-up with me in about one week. Patient Condition at Discharge: Fair Plan - Discharge Summary Discharge Rx Participant: No New Discharge Prescriptions: New Levofloxacin [Levaquin] 500 mg PO DAILY #14 tab Acetaminophen Tab [Tylenol] 650 mg PO Q6HR PRN tab PRN Reason: Fever And/ Or Pain Acyclovir [Zovirax] 400 mg PO BID #30 cap Filgrastim-Sndz [Zarxio] 480 mcg SQ DAILY@1200 #7 syringe Fluconazole [Diflucan] 100 mg PO DAILY #7 tab Magnesium Hydroxide [Milk of Magnesia Concentrate] 2,400 mg PO BID PRN ml PRN Reason: Constipation Pantoprazole [Protonix] 40 mg PO AC-BID #60 tablet.dr Continue Levothyroxine Sodium [Synthroid] 137 mcg PO DAILY Omeprazole [PriLOSEC] 20 mg PO AC-BID Amitriptyline HCl [Elavil] 100 mg PO HS Celecoxib [CeleBREX] 200 mg PO BID Allopurinol [Zyloprim] 300 mg PO DAILY glipiZIDE [Glucotrol] 10 mg PO AC-BID Insulin Regular, Human [NovoLIN R] See Protocol SQ AC-TID PRN PRN Reason: TAKING STEROIDS Lisinopril [Zestril] 10 mg PO DAILY metFORMIN HCL 1,000 mg PO BID Prochlorperazine [Compazine] 10 mg PO TID PRN PRN Reason: Nausea Discharge Medication List Amitriptyline HCl [Elavil] 100 mg PO HS 10/19/13 [History] Celecoxib [CeleBREX] 200 mg PO BID 10/19/13 [History] Levothyroxine Sodium [Synthroid] 137 mcg PO DAILY 10/19/13 [History] Omeprazole [PriLOSEC] 20 mg PO AC-BID 10/19/13 [History] Allopurinol [Zyloprim] 300 mg PO DAILY 05/09/18 [History] Insulin Regular, Human [NovoLIN R] See Protocol SQ AC-TID PRN 05/09/18 [History] Lisinopril [Zestril] 10 mg PO DAILY 05/09/18 [History] Prochlorperazine [Compazine] 10 mg PO TID PRN 05/09/18 [History] glipiZIDE [Glucotrol] 10 mg PO AC-BID 05/09/18 [History] metFORMIN HCL 1,000 mg PO BID 05/09/18 [History] Acetaminophen Tab [Tylenol] 650 mg PO Q6HR PRN tab 05/17/18 [Rx] Acyclovir [Zovirax] 400 mg PO BID #30 cap 05/17/18 [Rx] Filgrastim-Sndz [Zarxio] 480 mcg SQ DAILY@1200 #7 syringe 05/17/18 [Rx] Fluconazole [Diflucan] 100 mg PO DAILY #7 tab 05/17/18 [Rx] Levofloxacin [Levaquin] 500 mg PO DAILY #14 tab 05/17/18 [Rx] Magnesium Hydroxide [Milk of Magnesia Concentrate] 2,400 mg PO BID PRN ml 05/17 [Rx] Pantoprazole [Protonix] 40 mg PO AC-BID #60 tablet. 05/17/18 [Rx] Follow up Appointment(s)/Referral(s): Jersey Murrieta MD [Primary Care Provider] - 1-2 days [facility], [NON-STAFF] - Discharge Disposition: HOME WITH HOME HEALTH SERVICES
[2018-05-17] MEDS: FILGRASTIM-SNDZ 480 MCG/0.8 ML SYRINGE SQ SCH (13:17)
--- NOTE | 2018-05-17 19:56 | P.PN ---
Subjective Progress Note Date: 05/17/18 Principal diagnosis: Bacteremia, sepsis Afebrile, feeling better ready to go home, Objective - Vital Signs Vital signs: Vital Signs Temp 98.7 F 05/17/18 11:40 Pulse 115 H 05/17/18 11:40 Resp 16 05/17/18 11:40 BP 109/51 05/17/18 11:40 Pulse Ox 96 05/17/18 11:40 Intake & Output 05/17/18 05/17/18 05/18/18 06:59 18:59 06:59 Intake Total 1065 300 Output Total 1000 475 Balance 65 -175 Intake: Intake, IV Titration 600 Amount Cefepime 2 gm In Sodium 100 Chloride 0.9% 50 ml @ 100 mls/hr IVPB Q8H [facility] Rx#: [id number] Vancomycin 2,250 mg In 500 Sodium Chloride 0.9% 500 ml 500 ml @ 167 mls/hr IVPB Q16H [facility] Rx#: [id number] Oral 465 300 Output: Urine 1000 475 Other: Voiding Method Indwelling Catheter Toilet # Voids 2 # Bowel Movements 1 - Exam General Impression: Alert and oriented x3, mild distress HEENT: NT, NC e mucous membranes moist. Cardiovascular: Tachycardic Chest: Lungs clear to auscultation bilaterally, no rhonchi, no wheeze, no rales Abdomen: Bowel sounds present, abdomen soft, non-tender, non-distended, no organomegaly Musculoskeletal: Pulses present and equal in all extremities, no peripheral edema Motor: Power 5/5 bilaterally, no focal deficits noted Neurological: overall weakness and in constant moving Skin: Intact with no visualized rashes Psych: Normal affect and mood - Labs CBC & Chem 7: 05/16/18 07:04 05/17/18 07:22 Labs: Abnormal Lab Results - Last 24 Hours (Table) 05/16/18 05/17/18 05/17/18 Range/Units 20:00 06:55 07:22 Glucose 162 H (74-99) mg/dL POC Glucose (mg/dL) 191 H 193 H (75-99) mg/dL 05/17/18 Range/Units 11:31 Glucose (74-99) mg/dL POC Glucose (mg/dL) 190 H (75-99) mg/dL Assessment and Plan Plan: Assessment and Recommendations: 1. Large B Cell Lymphoma: Status Post Cycle One: - Chemotherapy on 05/03/18 with Rituxan, Cytoxan, Doxil, Prednisone, and Neulasta - Follow-up with Dr. Garrett as outpatient regarding resuming chemotherapy after acute illness resolves - She will not restart chemotherapy till antibiotics are completed and re- evlauatipon occurs 2. Febrile Neutropenia: Improved - Dr. Blevins from Infectious Disease Following and to provide discharge recs 3. Pancytopenia - Secondary to Chemotherapy and diffuse Bone Marrow disease from many line of chemotherapy - Monitor for s/s bleeding - Transfuse Platlets less than 15 - in a febrile neutropenic patient - All Irradiated Blood Products - Transfuse Hemoglobin less than 7, - Await CBC today - CBC Daily with differential 4. Recurrent Falls, Uncordinated Movements, Word Searching, Inability to Concentrate: - MRI of Brain Reviewed. - Likely secondary to sepsis 5. Persistent Tachycardia: Probable Reactive to above, monitor. 6. HX: ALL - Status Post Chemo 7. Hx: Ovarian Cancer with Surgical Hysterectomy and Chemotherapy Ok to discharge and follow-up as outpatient per onc Jody Ponce NP
--- NOTE | 2018-05-17 20:10 | P.PN ---
Subjective Progress Note Date: 05/17/18 72-year-old female who has a very extensive past medical history starting with breast carcinoma that was successfully treated. 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 Recently however was feeling poorly with increasing fatigue and malaise without evidence of lymphoma has not been receiving chemotherapy for her hematological malignancy. At home she was feeling poorly started to have falls having increasing difficulties with her daily activities. She was seen at the oncologist office and with her profound fatigue and malaise and neutropenia she was at needed to hospital. She's also noticed to have a fever and with this the infectious diseases consultation was requested. She relates since admission and receiving fluids antibiotic therapy she is starting to feel slightly better. 05/16/2018 patient is now feeling considerably better. Her fevers have resolved. She's having no nausea or emesis. She eating relatively well. Denies intermittent difficulties. 05/17/2018 patient has further improvement. We're for discharge home today. We 'll transition to oral antibiotic therapy. She'll follow-up with oncology before she has to [place] for the winter. Objective - Vital Signs Vital signs: Vital Signs Temp 98.7 F 05/17/18 11:40 Pulse 115 H 05/17/18 11:40 Resp 16 05/17/18 11:40 BP 109/51 05/17/18 11:40 Pulse Ox 96 05/17/18 11:40 Intake & Output 05/17/18 05/17/18 05/18/18 06:59 18:59 06:59 Intake Total 1065 300 Output Total 1000 475 Balance 65 -175 Intake: Intake, IV Titration 600 Amount Cefepime 2 gm In Sodium 100 Chloride 0.9% 50 ml @ 100 mls/hr IVPB Q8H [facility] Rx#: [id number] Vancomycin 2,250 mg In 500 Sodium Chloride 0.9% 500 ml 500 ml @ 167 mls/hr IVPB Q16H [facility] Rx#: [id number] Oral 465 300 Output: Urine 1000 475 Other: Voiding Method Indwelling Catheter Toilet # Voids 2 # Bowel Movements 1 - Exam Pleasant obese 72-year-old woman quite comfortable at this time HEENT: Anicteric conjunctiva are pink and moist nasal mucosa grossly intact without significant lesions, there is no thrush. Neck: The neck is supple without significant lymphadenopathy or thyromegaly. Lungs: Good bilateral air entry without significant crackles or wheezing. There is no significant bronchial sounds. There is no egophony or dullness. Heart: Regular rate and rhythm with an audible S1-S2, no S3 no S4. There is no significant murmur click or rub, PMI was nondisplaced. Abdomen: Positive bowel sounds soft and nontender without palpable masses or organomegaly. There was no guarding or rebound. Extremities: The upper extremities have excellent pulses they are symmetric, no significant petechiae or telangiectasia. No splinter hemorrhages were noted. Lower extremities have some diffuse edema but no significant open ulcerations are seen Neuro: Awake alert oriented to person place and time. There are no acute new gross focal sensory motor deficits. - Labs CBC & Chem 7: 05/16/18 07:04 05/17/18 07:22 Labs: Abnormal Lab Results - Last 24 Hours (Table) 05/17/18 05/17/18 05/17/18 Range/Units 06:55 07:22 11:31 Glucose 162 H (74-99) mg/dL POC Glucose (mg/dL) 193 H 190 H (75-99) mg/dL Laboratory Results WBC 2.4 k/uL (3.8-10.6) L 05/16/18 07:04 RBC 2.50 m/uL (3.80-5.40) L 05/16/18 07:04 Hgb 8.0 gm/dL (11.4-16.0) L 05/16/18 07:04 Hct 24.2 % (34.0-46.0) L 05/16/18 07:04 MCV 96.6 fL (80.0-100.0) 05/16/18 07:04 MCH 31.9 pg (25.0-35.0) 05/16/18 07:04 MCHC 33.0 g/dL (31.0-37.0) 05/16/18 07:04 RDW 15.5 % (11.5-15.5) 05/16/18 07:04 Plt Count 91 k/uL (150-450) L 05/16/18 07:04 Neutrophils % SUGAR BOILER 05/14/18 08:59 Neutrophils % (Manual) 42 % 05/16/18 07:04 Band Neutrophils % 15 % 05/16/18 07:04 Lymphocytes % SUGAR BOILER 05/14/18 08:59 Lymphocytes % (Manual) 16 % 05/16/18 07:04 Monocytes % SUGAR BOILER 05/14/18 08:59 Monocytes % (Manual) 16 % 05/16/18 07:04 Eosinophils % SUGAR BOILER 05/14/18 08:59 Basophils % SUGAR BOILER 05/14/18 08:59 Metamyelocytes % 2 % 05/16/18 07:04 Myelocytes % 8 % 05/16/18 07:04 Blast Cells % 1 % H* 05/16/18 07:04 Neutrophils # SUGAR BOILER 05/14/18 08:59 Neutrophils # (Manual) 1.30 k/uL (1.3-7.7) 05/16/18 07:04 Lymphocytes # SUGAR BOILER 05/14/18 08:59 Lymphocytes # (Manual) 0.38 k/uL (1.0-4.8) L 05/16/18 07:04 Monocytes # SUGAR BOILER 05/14/18 08:59 Monocytes # (Manual) 0.38 k/uL (0-1.0) 05/16/18 07:04 Eosinophils # SUGAR BOILER 05/14/18 08:59 Basophils # SUGAR BOILER 05/14/18 08:59 Metamyelocytes # (Man) 0.05 k/uL (0) H 05/16/18 07:04 Myelocytes # (Manual) 0.19 k/uL (0) H 05/16/18 07:04 Blast Cells # (Man) 0.02 k/uL (0) H 05/16/18 07:04 Nucleated RBCs 1 /100 WBC (0-0) H 05/16/18 07:04 Differential Comment 05/15/18 07:43 Manual Slide Review Performed 05/16/18 07:04 Toxic Granulation Present 05/16/18 07:04 Poikilocytosis (manual Present 05/16/18 07:04 Anisocytosis (manual) Present 05/16/18 07:04 Macrocytosis Slight 05/13/18 07:41 Tear Drop Cells Present 05/16/18 07:04 PT 9.9 sec (9.0-12.0) 05/09/18 17:30 INR 1.0 (<1.2) 05/09/18 17:30 APTT 21.8 sec (22.0-30.0) L 05/09/18 17:30 Sodium 138 mmol/L (137-145) 05/17/18 07:22 Potassium 4.8 mmol/L (3.5-5.1) 05/17/18 07:22 Chloride 102 mmol/L (98-107) 05/17/18 07:22 Carbon Dioxide 29 mmol/L (22-30) 05/17/18 07:22 Anion Gap 7 mmol/L 05/17/18 07:22 BUN 14 mg/dL (7-17) 05/17/18 07:22 Creatinine 0.84 mg/dL (0.52-1.04) 05/17/18 07:22 Est GFR (CKD-EPI)AfAm 80 (>60 ml/min/1.73 sqM) 05/17/18 07:22 Est GFR (CKD-EPI)NonAf 70 (>60 ml/min/1.73 sqM) 05/17/18 07:22 Glucose 162 mg/dL (74-99) H 05/17/18 07:22 POC Glucose (mg/dL) 190 mg/dL (75-99) H 05/17/18 11:31 POC Glu Cooking Show Host ID Divya Anders 05/17/18 11:[address] Glu mg/dL 154 05/10/18 08:31 Hemoglobin A1c 7.0 % (4.0-6.0) H 05/10/18 08:31 Lactic Ac Sepsis Rflx Y 05/09/18 17:54 Plasma Lactic Acid Minh 1.8 mmol/L (0.7-2.0) 05/12/18 21:49 Uric Acid 3.7 mg/dL (3.7-7.4) 05/09/18 17:30 Calcium 9.5 mg/dL (8.4-10.2) 05/17/18 07:22 Ionized Calcium Lilian 5.0 mg/dL (4.5-5.3) 05/09/18 17:30 Phosphorus 2.9 mg/dL (2.5-4.5) 05/09/18 17:30 Magnesium 1.6 mg/dL (1.6-2.3) 05/09/18 17:30 Total Bilirubin 0.4 mg/dL (0.2-1.3) 05/11/18 05:49 AST 15 U/L (14-36) 05/11/18 05:49 ALT 26 U/L (9-52) 05/11/18 05:49 Alkaline Phosphatase 52 U/L (38-126) 05/11/18 05:49 Lactate Dehydrogenase 280 U/L (313-618) L 05/10/18 12:13 Total Creatine Kinase <20 U/L (30-135) L 05/09/18 17:30 CK-MB (CK-2) 0.2 ng/mL (0.0-2.4) 05/09/18 17:30 CK-MB (CK-2) Rel Index 05/09/18 17:30 Troponin I <0.012 ng/mL (0.000-0.034) 05/09/18 17:30 Total Protein 5.2 g/dL (6.3-8.2) L 05/11/18 05:49 Albumin 2.8 g/dL (3.5-5.0) L 05/11/18 05:49 Urine Color Light Yellow 05/09/18 21:45 Urine Appearance Clear (Clear) 05/09/18 21:45 Urine pH 5.0 (5.0-8.0) 05/09/18 21:45 Ur Specific Bells 1.010 (1.001-1.035) 05/09/18 21:45 Urine Protein Negative (Negative) 05/09/18 21:45 Urine Glucose (UA) 3+ (Negative) H 05/09/18 21:45 Urine Ketones Negative (Negative) 05/09/18 21:45 Urine Blood Negative (Negative) 05/09/18 21:45 Urine Nitrite Negative (Negative) 05/09/18 21:45 Urine Bilirubin Negative (Negative) 05/09/18 21:45 Urine Urobilinogen <2.0 mg/dL (<2.0) 05/09/18 21:45 Ur Leukocyte Esterase Negative (Negative) 05/09/18 21:45 Vancomycin Trough 14.9 ug/mL 05/15/18 15:10 Microbiology 05/10/18 12:13 Blood Blood Culture - Final No Growth after 144 hours 05/10/18 12:19 Blood Blood Culture - Final No Growth after 144 hours 05/09/18 17:30 Blood Blood Culture Gram Stain - Final 05/09/18 17:30 Blood Blood Culture - Final Escherichia coli 05/09/18 17:30 Blood Blood Culture - Final Assessment and Plan (1) Febrile neutropenia Narrative/Plan: 78-year-old woman presents to Hospital feeling poorly with evidence of fever chills generalized malaise increasing weakness and was seen by her oncologist and directed to hospital. There is evidence of febrile neutropenia and evidence of a positive blood culture for which the infectious diseases consultation is requested. The patient will be treated with cefepime, she did have some nausea related to Cefdinir which is an oral medication down she'll have this difficulty with cefepime and it is ordered. Follow blood cultures have been requested. She. He received Neulasta in the outpatient setting with her most recent chemotherapy. Oncology is following and will determine when her next growth factor can be given. Temperature 102.4 is improving with hydration fluids and antibiotic therapy. Because of her prior extensive treatment she is having difficulty with her bone marrow recovery. 05/16/2018 reveals the patient be feeling better. Fevers are resolved. Energy level is improved. Eating and drinking well. Blood culture revealed evidence of E. coli that is quiroga susceptible. Fortunately. Able to tolerate Levaquin orally at home and is [facility] pharmacy for the next 2 weeks of treatment. It appears the patient's plan will be to complete a course of antibiotic therapy work with her oncologist and then try to get to [place] where after resolution of her sepsis she will then be able to have a plan for the next course of intervention about her AML. 05/17/2018 patient has further improvement. Her fevers are resolved. White blood cell count is improved and she is no longer with profound neutropenia. She'll be discharged home today on Levaquin which has been sent to her pharmacy for 2 weeks for E. coli bacteremia and sepsis. She'll follow-up with her oncologist and will make plans for her next cycle of chemotherapy likely to occur when she is in [place]. She will contact infectious disease office if she has further concerns to infection before her travels to [place]. Status: Acute Code(s): D70.9 - NEUTROPENIA, UNSPECIFIED; R50.81 - FEVER PRESENTING WITH CONDITIONS CLASSIFIED ELSEWHERE SNOMED Code(s): 793136900 (2) Anemia Status: Acute Code(s): D64.9 - ANEMIA, UNSPECIFIED SNOMED Code(s): 885535507 (3) Pancytopenia due to chemotherapy Status: Acute Priority: High Code(s): D61.810 - ANTINEOPLASTIC CHEMOTHERAPY INDUCED PANCYTOPENIA SNOMED Code(s): 9870867
[2018-05-17] MEDS ORDERED: CEFEPIME 2 GM in SODIUM CHLORIDE 0.9% 50 ML IVPB SCH (21:00)
== END 2018-05-17 15:25 | disposition home health service (06) | DRG 871 ==
LOC: EC 16:14 → 3SCARD 20:24 → 3NMEDONC 05-11 12:33
PROVIDERS: ADMIT Family Medicine; ATTEND Family Medicine
DX: A41.51 Sepsis due to Escherichia coli [E. coli] (principal); D61.810 Antineoplastic chemotherapy induced pancytopenia; C56.9 Malignant neoplasm of unspecified ovary; E87.2 Acidosis; C85.90 Non-Hodgkin lymphoma, unspecified, unspecified site; C92.00 Acute myeloblastic leukemia, not having achieved remission; E03.9 Hypothyroidism, unspecified; E11.9 Type 2 diabetes mellitus without complications; F41.9 Anxiety disorder, unspecified; I10 Essential (primary) hypertension; K59.00 Constipation, unspecified; R29.6 Repeated falls; R15.9 Full incontinence of feces; T45.1X5A Adverse effect of antineoplastic and immunosuppressive drugs, initial encounter; Z79.899 Other long term (current) drug therapy; Z85.3 Personal history of malignant neoplasm of breast; Z85.43 Personal history of malignant neoplasm of ovary; Z86.011 Personal history of benign neoplasm of the brain; Z86.14 Personal history of Methicillin resistant Staphylococcus aureus infection; Z87.440 Personal history of urinary (tract) infections; Z90.710 Acquired absence of both cervix and uterus; Z85.828 Personal history of other malignant neoplasm of skin; Z96.659 Presence of unspecified artificial knee joint; Z79.890 Hormone replacement therapy; Z79.84 Long term (current) use of oral hypoglycemic drugs; Z88.8 Allergy status to other drugs, medicaments and biological substances
CPT/HCPCS: 36415; 51702; 70553; 71045; 71046; 80048; 80053; 80202; 81003; 82330; 82550; 82553; 83036; 83605; 83615; 83735; 84100; 84484; 84550; 85025; 85027; 85610; 85730; 87040; 87077; 87186; 93005; 94640; 96361; 96365; 96366; 96367; 99285

== ENCOUNTER → 2018-06-04 | Outpatient (CLI) | payer MEDICARE, BC | END | disposition home or self-care (01) | LOC: RADPETMAIN 11:34 | PROVIDERS: ATTEND Internal Medicine Hematology & Oncology | DX: Z53.9 Procedure and treatment not carried out, unspecified reason (principal) ==

== ENCOUNTER → 2018-10-25 | Outpatient (CLI) | payer MEDICARE, BC ==
[2018-10-25 19:03] LABS: Albumin 4.6 g/dL (3.80-4.90); Albumin/Globulin Ratio 3.54 (1.60-3.17); Anion Gap 7.9 mmol/L (4.00-12.00); Calcium 9.8 mg/dL (8.7-10.3); Carbon Dioxide 28.1 mmol/L (21.6-31.8); Globulin 1.3 g/dL (1.6-3.3); Potassium 4.8 mmol/L (3.5-5.5); Total Bilirubin 0.5 mg/dL (0.3-1.2); Total Protein 5.9 g/dL (6.2-8.2)
[2018-10-25 20:50] LABS: Hemoglobin A1C 6.2 % (4.0-6.0)
== END | disposition home or self-care (01) ==
LOC: LABWHC1 10:15
PROVIDERS: ATTEND Internal Medicine Endocrinology, Diabetes & Metabolism
DX: E11.9 Type 2 diabetes mellitus without complications (principal)
CPT/HCPCS: 36415; 80053; 80061; 82043; 82570; 83036

== ENCOUNTER 2019-04-28 16:16 | Emergency (ER) | payer MEDICARE, BC ==
--- NOTE | 2019-04-28 16:54 | ED ---
General Adult HPI - General Chief complaint: Neuro Symptoms/Deficit Stated complaint: ABNORMAL BRAIN SCAN, SHOWS BLEED Time Seen by Provider: 04/28/19 16:25 Source: patient Mode of arrival: ambulatory Limitations: no limitations - History of Present Illness Initial comments: Dictation was produced using Scalado dictation software. please excuse any grammatical, word or spelling errors. Chief Complaint: 73-year-old female presents with abnormal outpatient CT. History of Present Illness: 73-year-old female presents with abnormal outpatient CT. Patient has multiple comorbidities. She is currently undergoing chemotherapy for myelodysplastic syndrome. Patient was seen by her distribution systems serviceperson several weeks ago for unrelated complaint. She was ordered for CT 2-3 weeks ago. She finally made her CT appointment today which was the soonest that she can get it scheduled. At 10:45 AM she went to get her computed tomography scan. I explained 30 meds prior to arrival she was given a phone call from radiology department told her to come to the emergency department right away. She was told that she was found to have a intracranial bleed. Patient does not complain of any specific symptoms at this time. She does com plain of some worsening neuropathy which she attributes to cancer treatment. Denies any trauma recently. Patient states she's been having headaches which would occur every other day with exacerbation at night. She states these headaches are not severe. The ROS documented in this emergency department record has been reviewed and confirmed by me. Those systems with pertinent positive or negative responses have been documented in the HPI. All other systems are other negative and/or noncontributory. PHYSICAL EXAM: General Impression: Alert and oriented x3, not in acute distress HEENT: Normocephalic atraumatic, extra-ocular movements intact, pupils equal and reactive to light bilaterally, mucous membranes moist. Cardiovascular: Heart regular rate and rhythm, S1&S2 audible, no murmurs, rubs or gallops Chest: Lungs clear to auscultation bilaterally, no rhonchi, no wheeze, no rales Abdomen: Bowel sounds present, abdomen soft, non-tender, non-distended, no organomegaly Musculoskeletal: Pulses present and equal in all extremities, no peripheral edema Motor: no focal deficits noted Neurological: CN II-XII grossly intact, no focal motor or sensory deficits noted Skin: Intact with no visualized rashes Psych: Normal affect and mood ED course: 73-year-old female presents with outpatient abnormal CT showing subdural hematoma. Chart review shows that patient was found to have 7 mm thick extensively subdural hematoma along the left frontal convexity suggesting acute on chronic hematoma. Vital signs upon arrival shows heart rate 103, worse vital signs within acceptable limits. Physical examination is grossly benign.Laboratory evaluation obtained. Patient has the PVC count of 0.5, hemoglobin of 7.3. Platelets were manually counted and I had a report that lab counted it to be at 14. Metabolic panel is unremarkable. Repeat CT showed stable acute on chronic subdural hematoma that is unchanged from 10:45 AM. Patient case discussed with Nadia who requested that we speak with neuro interventional doctor prior to transfer. Discussed patient case with Dr. Sloan of neuro interventional. He request that patient be transferred to [facility] ICU. She is to be given platelets. Discussed Dr. Sloan that platelet administration may delay transfer. He stated that it's fine if she gets transferred prior to receiving platelets. Discussed patient case with Dr. Yeepz who is willing to accept ER to ER transfer. His notify the patient will require platelet transfusion. - Related Data Home Medications Medication Instructions Recorded Confirmed Levothyroxine Sodium [Synthroid] 137 mcg PO DAILY 10/19/13 04/28/19 Insulin Regular, Human [NovoLIN R] See Protocol SQ AC-TID PRN 05/09/18 04/28/19 Lisinopril [Zestril] 10 mg PO DAILY 05/09/18 04/28/19 glipiZIDE [Glucotrol] 10 mg PO AC-BID 05/09/18 04/28/19 metFORMIN HCL 1,000 mg PO BID 05/09/18 04/28/19 Omeprazole 20 mg PO BID 03/07/19 04/28/19 Ondansetron [Zofran] 4 mg PO Q8H PRN 03/07/19 04/28/19 Rosuvastatin [Crestor] 10 mg PO DAILY 03/07/19 04/28/19 Venetoclax [Venclexta] 100 mg PO QID 03/07/19 04/28/19 Sennosides/Docusate Sodium [Karly 1 tab PO DAILY PRN 04/07/19 04/28/19 Colace] Levofloxacin [Levaquin] 500 mg PO DAILY 04/21/19 04/28/19 Acyclovir 400 mg PO BID 04/28/19 04/28/19 Bismuth Subsalicylate [Kaopectate] 262 - 524 mg PO Q4H PRN 04/28/19 04/28/19 Lactulose 20 gm PO DAILY PRN 04/28/19 04/28/19 Lidocaine-Prilocaine Cream [Emla 1 applic TOPICAL DIRECTED PRN 04/28/19 04/28/19 Cream 2.5%/2.5%] Allergies Allergy/AdvReac Type Severity Reaction Status Date / Time adhesive Allergy Unknown Verified 04/28/19 17:31 meclizine HCl [From Antivert] Allergy Unknown Verified 04/28/19 17:31 cefdinir [Cefdinir] AdvReac Nausea Verified 04/28/19 17:31 Review of Systems ROS Statement: Those systems with pertinent positive or pertinent negative responses have been documented in the HPI. ROS Other: All systems not noted in ROS Statement are negative. Past Medical History Past Medical History: Asthma, Blood Disorder, Cancer, Diabetes Mellitus, Fibromyalgia, Hypertension Additional Past Medical History / Comment(s): lymphoma, ALL leukemia, mOvarian Cancer, Skin cancer, varicose veins, SOB, hemorrhiods, arthritis, chronic back pain, Chronic anemia with frequent blood transfusions.Thrombocytopenia with plt transfusions. HX ITP, NEUROPATHY ZHAO FEET. MYELODYSPLASTIC SYNDROME History of Any Multi-Drug Resistant Organisms: MRSA, VRE Date of last positivie culture/infection: 12/01/2013-MRSA; 10/20/2013-VRE MDRO Source:: MRSA-Abd Wound: VRE-Urine Past Surgical History: Appendectomy, Heart Catheterization, Hysterectomy, Joint Replacement, Orthopedic Surgery Additional Past Surgical History / Comment(s): colonoscopy, abdominal surgery, oophrectomy, shoulder surgery, zhao knee replacement, rt foot bunion surgery, ZHAO CATARACT SX, PORT A CATH, BONE MARROW BX, Past Anesthesia/Blood Transfusion Reactions: No Reported Reaction Past Psychological History: No Psychological Hx Reported Smoking Status: Never smoker Past Alcohol Use History: Occasional Past Drug Use History: None Reported - Past Family History Father Family Medical History: No Reported History General Exam Limitations: no limitations Course Vital Signs 04/28/19 04/28/19 16:18 17:31 Temperature 98.7 F Pulse Rate 103 H 97 Respiratory 20 18 Rate Blood Pressure 129/64 O2 Sat by Pulse 100 97 Oximetry Medical Decision Making - Lab Data Result diagrams: 04/28/19 17:19 04/28/19 17:19 Lab Results 04/28/19 04/28/19 Range/Units 17:19 17:19 WBC 0.5 L* (3.8-10.6) k/uL RBC 2.25 L (3.80-5.40) m/uL Hgb 7.3 L (11.4-16.0) gm/dL Hct 20.1 L (34.0-46.0) % MCV 89.6 D (80.0-100.0) fL MCH 32.3 (25.0-35.0) pg MCHC 36.1 (31.0-37.0) g/dL RDW 16.2 H (11.5-15.5) % Poikilocytosis Slight Anisocytosis Slight Sodium 137 (137-145) mmol/L Potassium 4.1 (3.5-5.1) mmol/L Chloride 105 (98-107) mmol/L Carbon Dioxide 24 (22-30) mmol/L Anion Gap 8 mmol/L BUN 18 H (7-17) mg/dL Creatinine 0.86 (0.52-1.04) mg/dL Est GFR (CKD-EPI)AfAm 78 (>60 ml/min/1.73 sqM) Est GFR (CKD-EPI)NonAf 68 (>60 ml/min/1.73 sqM) Glucose 135 H (74-99) mg/dL Calcium 10.1 (8.4-10.2) mg/dL Magnesium 1.8 (1.6-2.3) mg/dL Disposition Clinical Impression: Subdural hematoma Disposition: OTHER INSTITUTION NOT DEFINED Condition: Critical Is patient prescribed a controlled substance at d/c from ED?: No Referrals: Jersey Murrieta MD [Primary Care Provider] - 1-2 days Time of Disposition: 18:31 - Out of Hospital Transfer - Req. Specs Out of Hospital Transfer - Requested Specifics: Other Emergency Center ([facility]
--- NOTE | 2019-04-28 17:31 | XR ---
EXAMINATION TYPE: XR chest 1V portable DATE OF EXAM: 04/28/2019 COMPARISON: 05/15/2018 HISTORY: Intracranial hemorrhage. Shortness of breath. TECHNIQUE: Single frontal view of the chest is obtained. FINDINGS: Right-sided Mediport is present. This terminates in the distal superior vena cava. Strand-l emily bibasilar subsegmental atelectasis. There is no focal air space opacity, pleural effusion, or pne umothorax seen. The cardiac silhouette size is within normal limits. The osseous structures are in tact. IMPRESSION: Strand-like bibasilar subsegmental atelectasis otherwise no acute cardiopulmonary proces s.
[2019-04-28 17:34] VITALS: RESP 18
[2019-04-28 18:03] LABS: Calcium 10.1 mg/dL (8.4-10.2); Magnesium 1.8 mg/dL (1.6-2.3); Potassium 4.1 mmol/L (3.5-5.1)
--- NOTE | 2019-04-28 18:05 | CT ---
EXAMINATION TYPE: CT brain wo con DATE OF EXAM: 04/28/2019 COMPARISON: CT brain earlier on the same date HISTORY: Subdural hematoma CT DLP: 1082.4 mGycm Automated exposure control for dose reduction was used. FINDINGS: There is acute on chronic subdural hemorrhage of the left frontal hemisphere when measured at the nuzhat e location is stable from the prior of 05/08/2019 at 11:33 AM. This measures 6.4 mm on image 19. Ther e is a small amount of hemorrhage along the anterior falx cerebrum 3 previously measured at a thickne ss of 4 mm currently measuring 5 mm. This is likely due to obliquity given its long-term presence. Th is again is thought to relate to a possible meningioma. There is no significant midline shift. There is some mass effect from the subdural hematoma on the left frontal gyri however no vasogenic ed orlando is seen. No additional compartment of intracranial hemorrhage. Peripheral sulci and ventricular s ystem demonstrate mild age-related volume loss. Calvarium is intact. Paranasal sinuses are well aerat ed as are the mastoid air cells. Globes are unremarkable. IMPRESSION: Stable small acute on chronic left subdural hematoma in comparison to the prior earlier o n the same date with no midline shift.
[2019-04-28 18:09] LABS: Anisocytosis Slight; HCT 20.1 % (34.0-46.0); HGB 7.3 gm/dL (11.4-16.0); MCH 32.3 pg (25.0-35.0); MCHC 36.1 g/dL (31.0-37.0); Mean Platelet Volume 5.6; Poikilocytosis Slight; RBC 2.25 m/uL (3.80-5.40); RDW 16.2 % (11.5-15.5)
[2019-04-28 18:11] LABS: MCV 89.6 fL (80.0-100.0); Prothrombin Time 28.5 sec (9.0-12.0)
[2019-04-28 18:12] LABS: Platelet Count 14 k/uL (150-450)
[2019-04-28 18:32] LABS: WBC 0.5 k/uL (3.8-10.6)
--- NOTE | 2019-04-28 18:32 | ED ---
Medical Decision Making - Lab Data Result diagrams: 04/28/19 17:19 04/28/19 17:19 Lab Results 04/28/19 04/28/19 Range/Units 17:19 17:19 WBC 0.5 L* (3.8-10.6) k/uL RBC 2.25 L (3.80-5.40) m/uL Hgb 7.3 L (11.4-16.0) gm/dL Hct 20.1 L (34.0-46.0) % MCV 89.6 D (80.0-100.0) fL MCH 32.3 (25.0-35.0) pg MCHC 36.1 (31.0-37.0) g/dL RDW 16.2 H (11.5-15.5) % Poikilocytosis Slight Anisocytosis Slight Sodium 137 (137-145) mmol/L Potassium 4.1 (3.5-5.1) mmol/L Chloride 105 (98-107) mmol/L Carbon Dioxide 24 (22-30) mmol/L Anion Gap 8 mmol/L BUN 18 H (7-17) mg/dL Creatinine 0.86 (0.52-1.04) mg/dL Est GFR (CKD-EPI)AfAm 78 (>60 ml/min/1.73 sqM) Est GFR (CKD-EPI)NonAf 68 (>60 ml/min/1.73 sqM) Glucose 135 H (74-99) mg/dL Calcium 10.1 (8.4-10.2) mg/dL Magnesium 1.8 (1.6-2.3) mg/dL Critical Care Time Critical Care Time: Yes (31) Disposition Clinical Impression: Subdural hematoma Disposition: OTHER INSTITUTION NOT DEFINED Condition: Critical Referrals: Jersey Murrieta MD [Primary Care Provider] - 1-2 days Time of Disposition: 18:32 - Out of Hospital Transfer - Req. Specs Out of Hospital Transfer - Requested Specifics: Other [facility]
[2019-04-28 18:33] LABS: Poikilocytosis (M) Present
[2019-04-28 18:59] LABS: Partial Thromboplastin Time >200.0 sec (22.0-30.0)
[2019-04-28 19:20] VITALS: BP 149/87; PULSE 87; TEMP 98
== END 2019-04-28 19:27 | disposition other institution (70) ==
LOC: EC 16:16
DX: D46.9 Myelodysplastic syndrome, unspecified (principal); I62.00 Nontraumatic subdural hemorrhage, unspecified; G89.29 Other chronic pain; M54.5 Low back pain; I10 Essential (primary) hypertension; M79.7 Fibromyalgia; E11.40 Type 2 diabetes mellitus with diabetic neuropathy, unspecified; Z79.890 Hormone replacement therapy; Z79.4 Long term (current) use of insulin; Z79.899 Other long term (current) drug therapy; Z91.048 Other nonmedicinal substance allergy status; Z88.1 Allergy status to other antibiotic agents; Z88.8 Allergy status to other drugs, medicaments and biological substances; Z85.828 Personal history of other malignant neoplasm of skin; Z85.6 Personal history of leukemia; Z95.5 Presence of coronary angioplasty implant and graft; Z85.43 Personal history of malignant neoplasm of ovary; Z96.653 Presence of artificial knee joint, bilateral
CPT/HCPCS: 99285 ×2; 36415; 80048; 82565; 83735; 84520; 85025; 85610; 85730; 87324; 87045; 87046; 71045; 70450; 70470; 36430; P9040; J1642; Q9967

== ENCOUNTER → 2019-04-28 | Outpatient (CLI) | payer MEDICARE, BC ==
--- NOTE | 2019-04-28 14:50 | CT ---
EXAMINATION TYPE: CT brain wo/w con DATE OF EXAM: 04/28/2019 COMPARISON: CT brain 10/12/2013 and MRI 05/10/2018 HISTORY: 73-year-old female STEELE, lymphoma TECHNIQUE: Examination was done in axial plane before and after administration of 100 mL Isovue-300 intravenous contrast. Coronal and sagittal reconstructions performed. CT DLP: 2149 mGycm Automated exposure control for dose reduction was used. FINDINGS: Stable focal high density fusiform thickening along the anterior falx measuring 4 mm thick. There is a new crescentic extra-axial collection along the left frontal convexity measuring 7 mm thic k with internal mixed low and high density material. Mild mass effect onto the underlying frontal par enchyma. Mild central cerebral volume loss with secondary mild prominence to the ventricular system. Mild Periventricular white matter hypodensity suggests changes of chronic small vessel ischemic disease. Following contrast administration, dural venous sinuses are patent. There is homogeneous enhancement of the lesion along the anterior falx suggesting meningioma. No other intracranial enhancing lesions. There is no evidence of acute ischemic changes, or midline shift. No effacement of basal subarachnoid cisterns. Murrell-white matter distinction is preserved. Rightward nasal septal deviation. Paranasal sinuses and mastoid air cells well pneumatized. Orbits an d globes are intact. IMPRESSION: 1. A 7 mm thick mixed density subdural hematoma along the left frontal convexity. The mixed density s uggests some acute hemorrhage admixed with chronic hematoma. 2. Minimal associated mass effect onto the underlying left frontal lobe. 3. Stable enhancing extra-axial lesion along the anterior falx dating back to at least 2013 suggestin g a benign meningioma. No other suspicious enhancing intracranial lesions. 4. No midline shift or acute ischemic changes seen. The physician's office will be called immediately following the dictation and the report will be faxe d.
== END | disposition home or self-care (01) ==
LOC: RADPROMAIN 10:25
PROVIDERS: ATTEND Internal Medicine Hematology & Oncology
DX: Z03.89 Encounter for observation for other suspected diseases and conditions ruled out (principal); I62.00 Nontraumatic subdural hemorrhage, unspecified; I67.89 Other cerebrovascular disease; C85.98 Non-Hodgkin lymphoma, unspecified, lymph nodes of multiple sites
CPT/HCPCS: 70470; 82565; 84520; Q9967